=== PATIENT | male | born 1960 | race Caucasian/White ===

== ENCOUNTER 2025-08-12 03:42 | Emergency (ER) | payer MEDICARE, SELFPAY ==
[2025-08-12 03:52] VITALS: BP 118/48
[2025-08-12 03:53] VITALS: BP 118/48
[2025-08-12 04:03] VITALS: BMI 63.1
[2025-08-12 04:40] LABS: Hematocrit 42.3 % (39.0-52.0); Hemoglobin 12.9 g/dL (13.0-18.0); Mean Corp Hgb Conc. 30.5 g/dL (33.0-37.0); Mean Corpuscular Volume 80.7 fL (80.0-94.0); Nucleated Red Blood Cells % 0 % (-); Platelet Count 270 10^3/uL (130-400); Red Cell Dist. Width 17.3 % (11.5-14.5)
[2025-08-12 04:52] LABS: ALT (SGPT) 20 U/L (0-50); AST (SGOT) 20 U/L (17-59); Albumin 3.8 g/dl (3.5-5.0); Alkaline Phosphatase 123 U/L (38-126); Blood Urea Nitrogen 22 mg/dl (9-20); Calcium 8.7 mg/dl (8.4-10.2); Carbon Dioxide 32 mmol/L (22-30); Chloride 97 mmol/L (98-107); Estimated Creatinine Clearance > 125 ml/min; Glucose 120 mg/dl (70-99); Potassium 3.5 mmol/L (3.5-5.1); Sodium 140 mmol/L (135-145); Total Protein 6.8 g/dl (6.3-8.2); eGFR > 60.00
[2025-08-12 05:00] VITALS: BP 124/67
[2025-08-12 05:02] LABS: Troponin I < 0.012 ng/ml
--- NOTE | 2025-08-12 05:13 | ED.GENMED ---
History of Present Illness
<Laxmi Yo PA-C - Last Filed: 08/12/25 10:53>
General
Chief Complaint: Breathing Problem
Source: patient
Exam Limitations: none
Time Seen by Provider: 08/12/25 05:01
Nursing documentation reviewed up to this point in time: agreed with
History of Present Illness
History of Present Illness:
Note:
CHIEF COMPLAINT(S)
Shortness of breath and chest pain.
HISTORY OF PRESENT ILLNESS
The patient is a 64-year-old male with a history of atrial fibrillation on eliquis, COPD, GERD, who presents with shortness of breath and chest tightnessthat started around midnight. He reports waking up with these symptoms. The patient denies a
history of heart attacks and has not experienced recent cough or cold-like symptoms except for a persistent, mild presentation ('kind of always that way'). He notes sporadic episodes of wheezing and has previously been diagnosed with COPD (Chronic
Obstructive Pulmonary Disease), suggesting a potential flare-up. The patient experiences intermittent palpitations, though currently without severe distress. He does not recall taking any blood thinners for his condition and mentions not being on
medications that he can recall. Breathing treatments were discussed as helpful for relief during similar episodes .No edema in the lower extremities. Patient is from a long-term and is morbidly obese and non-ambulatory.
PAST MEDICAL AND SURIGICAL HISTORY
- Atrial Fibrillation
- Chronic Obstructive Pulmonary Disease (COPD)
PHYSICAL EXAM
General: Alert, no acute distress.
Skin: Warm, dry.
Head: Normocephalic, atraumatic.
Neck: Supple, trachea midline.
Eye Ears, nose, mouth and throat: Oral mucosa moist.
Cardiovascular: Normal peripheral perfusion, No edema.
Respiratory: Wheezing noted upon auscultation. No respiratory distress. Not hypoxic,
Gastrointestinal: Abdomen nondistended.
Back: Normal range of motion, Normal alignment.
Musculoskeletal: Normal range of motion, normal strength.
Neurological: Alert and oriented to person, place, time, and situation, No focal neurological deficit observed.
Psychiatric: Cooperative, appropriate mood & affect.
PROBLEM LIST
Acute Problems:
- Shortness of breath
- Chest pain
- Intermittent palpitations
- COPD flare-up
Chronic Problems:
- Atrial Fibrillation
- Chronic Obstructive Pulmonary Disease (COPD)
PLAN
- Consider administering breathing treatments to help alleviate symptoms.
- Follow up on any medication regimen to ensure the patient is adequately managing COPD flare-ups and atrial fibrillation.
DIFFERENTIAL DIAGNOSIS
The Differential Diagnosis includes, in no particular order and is not limited to:
1. Exacerbation of Chronic Obstructive Pulmonary Disease (COPD)
2. Atrial fibrillation-related palpitations
3. Angina pectoris
4. Myocardial infarction
5. Pulmonary embolism
6. Congestive heart failure
7. Pericarditis
8. Bronchitis
9. Lung infection (such as pneumonia)
10. Anxiety-related symptoms
Phy Exam
<Laxmi Yo PA-C - Last Filed: 08/12/25 10:53>
General Physical Exam
General Presentation: other (chronically ill appearing, no acute distress, appears older than stated age)
General Skin: warm and dry
General Habitus: obese and poor hygiene
General Mental: alert
General Hydration: appears well hydrated
ENT Exam
ENT Exam: EOMI, TM's normal and other (erythema and small amount of exudate in EAC)
Cardiovascular Exam
Cardiovascular Exam: regular rate/rhythm, no edema and no murmur
Pulmonary Exam
Pulmonary Exam: lungs clear, no respiratory distress, no crackles and no wheezing
Gastrointestinal Exam
Gastrointestinal Exam: normal bowel sounds, non tender and no pulsatile mass
Neurological Exam
Neurological Exam: alert, oriented x3 and CN II-XII intact
Scores
<Laxmi Yo PA-C - Last Filed: 08/12/25 10:53>
Heart Failure Risk
Heart Failure Risk Score: Not Applicable
Course
<Laxmi Yo PA-C - Last Filed: 08/12/25 10:53>
Orders/Labs/Results
Orders:
Orders
08/12/25 03:52
Electrocardiogram (*1) Urgent
Reason for Study: Shortness of Breath
EKG- Treatment ONCE
08/12/25 04:01
Complete Blood Count/With Diff Urgent
Comprehensive Metabolic Panel Urgent
NT-proBNP Urgent
Comment: ADD ON
Troponin I Urgent
08/12/25 05:16
CR Chest Portable - 1 View Urgent
Comment:
Reason For Exam: shortness of breath
Reason Study Needs to be Portable: Unable to Transport
08/12/25 05:17
Add On- LAB Urgent
Tests Added?: bnp
08/12/25 05:20
COVID-19 Antigen Urgent
Source: Nasal Swab
Influenza A+B Rapid Molecular Urgent
LUCIA Source: Nasal Swab
Specimen Description:
08/12/25 06:26
Ipratropium/Albuterol Sulfate [Duoneb] 3 ml INH R NOW STA
08/12/25 08:00
Ofloxacin [Ocuflox] See Dose Instructions BOTH EARS DAILY
Abnormal Lab Results
08/12/25
04:01
WBC 14.7 H 10^3/uL
(4.8-10.8)
Hgb 12.9 L g/dL
(13.0-18.0)
MCH 24.6 L pg
(27.0-31.0)
MCHC 30.5 L g/dL
(33.0-37.0)
RDW 17.3 H %
(11.5-14.5)
MPV 10.7 H fL
(7.4-10.4)
Abs Immat Gran (auto) 0.1 H 10^3/uL
(0-0.05)
Absolute Neuts (auto) 9.9 H 10^3/uL
(1.4-6.5)
Absolute Monos (auto) 1.2 H 10^3/uL
(0.1-0.6)
Immature Gran % 0.7 H %
(0-0.5)
Chloride 97 L mmol/L
(98-107)
Carbon Dioxide 32 H mmol/L
(22-30)
BUN 22 H mg/dl
(9-20)
Glucose 120 H mg/dl
(70-99)
08/12/25 04:01
08/12/25 04:01
Vital Signs
Initial and Last Documented VS:
Initial Vital Signs
Pulse Resp BP Pulse Ox
109 19 118/48 93
08/12/25 03:52 08/12/25 03:52 08/12/25 03:52 08/12/25 03:52
Last Documented Vital Signs
Pulse Resp BP Pulse Ox
103 27 118/75 94
08/12/25 09:49 08/12/25 06:15 08/12/25 06:00 08/12/25 09:49
<Amy Gonzalez, DO - Last Filed: 08/12/25 06:32>
Orders/Labs/Results
Orders:
Orders
08/12/25 03:52
Electrocardiogram (*1) Urgent
Reason for Study: Shortness of Breath
EKG- Treatment ONCE
08/12/25 04:01
Complete Blood Count/With Diff Urgent
Comprehensive Metabolic Panel Urgent
NT-proBNP Urgent
Comment: ADD ON
Troponin I Urgent
08/12/25 05:16
CR Chest Portable - 1 View Urgent
Comment:
Reason For Exam: shortness of breath
Reason Study Needs to be Portable: Unable to Transport
08/12/25 05:17
Add On- LAB Urgent
Tests Added?: bnp
08/12/25 05:20
COVID-19 Antigen Urgent
Source: Nasal Swab
Influenza A+B Rapid Molecular Urgent
LUCIA Source: Nasal Swab
Specimen Description:
08/12/25 06:26
Ipratropium/Albuterol Sulfate [Duoneb] 3 ml INH R NOW STA
08/12/25 08:00
Ofloxacin [Ocuflox] See Dose Instructions BOTH EARS DAILY
Abnormal Lab Results
08/12/25
04:01
WBC 14.7 H 10^3/uL
(4.8-10.8)
Hgb 12.9 L g/dL
(13.0-18.0)
MCH 24.6 L pg
(27.0-31.0)
MCHC 30.5 L g/dL
(33.0-37.0)
RDW 17.3 H %
(11.5-14.5)
MPV 10.7 H fL
(7.4-10.4)
Abs Immat Gran (auto) 0.1 H 10^3/uL
(0-0.05)
Absolute Neuts (auto) 9.9 H 10^3/uL
(1.4-6.5)
Absolute Monos (auto) 1.2 H 10^3/uL
(0.1-0.6)
Immature Gran % 0.7 H %
(0-0.5)
Chloride 97 L mmol/L
(98-107)
Carbon Dioxide 32 H mmol/L
(22-30)
BUN 22 H mg/dl
(9-20)
Glucose 120 H mg/dl
(70-99)
08/12/25 04:01
08/12/25 04:01
Vital Signs
Initial and Last Documented VS:
Initial Vital Signs
Pulse Resp BP Pulse Ox
109 19 118/48 93
08/12/25 03:52 08/12/25 03:52 08/12/25 03:52 08/12/25 03:52
Last Documented Vital Signs
Pulse Resp BP Pulse Ox
103 27 118/75 94
08/12/25 09:49 08/12/25 06:15 08/12/25 06:00 08/12/25 09:49
<Laxmi Yo PA-C - Last Filed: 08/12/25 10:53>
MDM/Problems Addressed
Differential Diagnosis Includes:
see hpi
MDM/Problems Addressed:
The patient is a 64-year-old male with a history of atrial fibrillation on eliquis, COPD, GERD, who presents with shortness of breath and chest tightness that started around midnight. He reports waking up with these symptoms.
He has associated cough, no sick contacts.
No fever.
CXR shows left sided infiltrate vs atelectasis, more consistent with atelectasis considering patients nonambulatory status and that he chronically lays on left side, also no fever
Labs thus far reveal mildly elevated white blood cell count of 14.7. Normal H&H.
Chemistries are unremarkable save for minimally elevated CO2 of 32. Concern for an element of chronic CO2 retention. Troponin is negative. BNP is normal at 300. COVID and flu testing are negative.
Suspect COPD exacerbation will initiate steroids
Pt stable for discharge
Pt also complains of ear discomfort
He does have b/l otitis externa on exam no mastoid tenderness
Ofloxacin drops given
Discussed establishing care with ENT
<Laxmi Yo PA-C - Last Filed: 08/12/25 10:53>
*Pulse Oximetry
SaO2: 94
Nasal Cannula flow liters per minute: 2
Oxygen Mode of Delivery: Room air
Patient hypoxic: no
*Critical Care Note
Total Time (30-74mins, 75-104mins- exclusive of procedures): Not Applicable
Data Reviewed
Review of Other/Old Records Reveals: Records (no prior ER physician documentation to review )
Source: patient and records
ED Attending Note
<Laxmi Yo PA-C - Last Filed: 08/12/25 10:53>
-
Portions of this chart may have been created with voice recognition software.� Occasional wrong word or��sound alike� substitutions may have occurred due to the inherent limitations of voice recognition software.
<mAy Gonzalez DO - Last Filed: 08/12/25 06:32>
ED Attending Note
Patient seen and examined by attending physician: Yes
I performed a history and physical exam of patient and discussed management with resident, I reviewed resident's note and agree with documented findings and plan of care.: Yes
ED Attending Note:
64-year-old gentleman with history of super morbid obesity, COPD, obstructive sleep apnea, A-fib chronically maintained on Eliquis, chronic otitis media, recently admitted to [facility] 2 days ago. He presents tonight with complaints
of shortness of breath, intermittent chest pain. He was concerned that his CPAP settings were 'off' Overall he was having difficulty sleeping, felt that the room that he was residing in was 'hot and stuffy' EMS found that patient's pulse ox was
in the high 90s on room air.
Feeling improved since arrival to the ED.
He is quite chatty, overall in no acute distress.
Patient noted to be morbidly obese, lying on his left side, position of comfort. He states he always lays on his left side. Chronically nonambulatory.
Heart is irregularly irregular at a rate of 90-100
Lungs: No acute respiratory distress. Mildly decreased breath sounds left base�the side that patient is lying on, otherwise clear to auscultation.
Concern for exacerbation of COPD, CHF, pneumonia. PE is unlikely, chronically maintained on Eliquis.
EKG shows A-fib with RVR at 105. No acute ST-T wave abnormalities. No old EKG to compare.
Labs thus far reveal mildly elevated white blood cell count of 14.7. Normal H&H.
Chemistries are unremarkable save for minimally elevated CO2 of 32. Concern for an element of chronic CO2 retention. Troponin is negative. BNP is normal at 300. COVID and flu testing are negative.
Awaiting chest x-ray.
Discharge Plan
Departure
Patient Disposition: Home (Routine Discharge)
Date of Disposition: 08/12/25
Time of Disposition: 07:32
Patient with high blood pressure during this ER visit?: Yes
Condition: Good
Discharge Problem:
COPD exacerbation
Instructions: COPD exacerbation (DC)
Prescriptions:
New
prednisone 20 mg tablet
40 mg PO DAILY 5 Days Qty: 10 0RF
Referrals:
Soo Manuel MD [Family Provider]
Citlali Murphy MD [Active, Otology] - Call in 1-3 days for appt
Activity Restrictions/Additional Instructions:
As discussed, you tested negative for COVID and flu.
Prednisone has been sent to your pharmacy. Please take 40 mg once daily for 5 days.
Please continue the ofloxacin drops. Please instill 10 drops in each ear for 5 days.
Please call the attached number to follow up with ENT.
PLEASE RETURN TO THE ER TO DEVELOP CHEST PAIN, SHORTNESS OF BREATH, NAUSEA, VOMITING FEVERS OR CHILLS, OR ANY OTHER SIGNS OR SYMPTOMS CONCERNING TO YOU.
Interventions
Interventions:
*Risk Screen - Suicide Last Done: 08/12/25 03:55
*General Assessment Last Done: 08/12/25 03:55
*Neglect/Abuse Screening Last Done: 08/12/25 03:55
*ED- Fall Risk Assessment Last Done: 08/12/25 03:55
*ED COVID-19 Vaccine History Last Done: 08/12/25 03:55
*ED Influenza Vaccine History Last Done: 08/12/25 03:55
ED- Cardiac Assessment Last Done: 08/12/25 04:14
ED- Pulmonary Assessment Last Done: 08/12/25 04:14
Discharge Date and Time
Print Language: FRISIAN
[2025-08-12 06:00] VITALS: BP 118/75
[2025-08-12 06:05] LABS: COVID-19 Antigen Negative (Negative)
[2025-08-12] MEDS: OCUFLOX 1 DROP BOTH EARS (07:11)
[2025-08-12] MEDS: DUONEB 3 ML INH (07:11)
== END 2025-08-12 12:00 | disposition home or self-care (01) ==
LOC: EMR 03:42
PROVIDERS: Physician Assistant; EMERGENCY PHYSICIAN Emergency Medicine; FAMILY PHYSICIAN Internal Medicine
DX: J44.1 Chronic obstructive pulmonary disease with (acute) exacerbation (principal); H60.63 Unspecified chronic otitis externa, bilateral; I48.91 Unspecified atrial fibrillation; E66.01 Morbid (severe) obesity due to excess calories; Z68.44 Body mass index [BMI] 60.0-69.9, adult; G47.33 Obstructive sleep apnea (adult) (pediatric); K21.9 Gastro-esophageal reflux disease without esophagitis; Z79.01 Long term (current) use of anticoagulants
CPT/HCPCS: 99284; 94640; 71045; 80053; 83880; 84484; 85025; 87502; 87811; 93005

== ENCOUNTER 2025-08-19 01:33 | Emergency (ER) | payer MEDICARE, SELFPAY ==
[2025-08-19] VITALS (10 sets, daily range): BP systolic 92–110; BP diastolic 47–92; BMI 62.8
[2025-08-19 02:16] LABS: Hematocrit 42.4 % (39.0-52.0); Hemoglobin 13.1 g/dL (13.0-18.0); Mean Corp Hgb Conc. 30.9 g/dL (33.0-37.0); Mean Corpuscular Volume 78.7 fL (80.0-94.0); Nucleated Red Blood Cells % 0 % (-); Platelet Count 277 10^3/uL (130-400); Red Cell Dist. Width 17.2 % (11.5-14.5)
[2025-08-19 03:05] LABS: ALT (SGPT) 17 U/L (0-50); AST (SGOT) 17 U/L (17-59); Albumin 3.7 g/dl (3.5-5.0); Alkaline Phosphatase 125 U/L (38-126); Blood Urea Nitrogen 24 mg/dl (9-20); Calcium 8.3 mg/dl (8.4-10.2); Carbon Dioxide 37 mmol/L (22-30); Chloride 93 mmol/L (98-107); Estimated Creatinine Clearance > 125 ml/min; Glucose 113 mg/dl (70-99); Potassium 3.4 mmol/L (3.5-5.1); Sodium 137 mmol/L (135-145); Total Protein 6.8 g/dl (6.3-8.2); eGFR > 60.00
[2025-08-19 03:16] LABS: Troponin I < 0.012 ng/ml
--- NOTE | 2025-08-19 04:03 | ED.GENMED ---
History of Present Illness
General
Chief Complaint: Headache
Source: patient
Exam Limitations: none
Time Seen by Provider: 08/19/25 01:43
Nursing documentation reviewed up to this point in time: agreed with
History of Present Illness
History of Present Illness:
Note:
CHIEF COMPLAINT(S)
Chest discomfort.
HISTORY OF PRESENT ILLNESS
The patient is a 65-year-old male with a pmh of super morbid obesity, COPD, sleep apnea, afib on eliquis, who presented with chest discomfort that awoke him from sleep. He is bed bound at baseline. He describes the pain as being located in the
middle of the chest and reports that it was persistent and he does not recall how long it was there. The patient notes the sensation is different from any kind he has experienced before. Despite experiencing chest discomfort, the patient has no
history of a heart attack and does not regularly follow with a [employer] administrator despite hs hx of atrial fibrillation. He reports that currently, upon arrival to the ER, the chest pain has resolved. He denies shortness of breath. He reports a lingering
cough. Additionally, he reports a headache but states it is similar to headaches he has had in the past. He is declining pain medication for the headache at this time. He does not know when it started. He has no associated visual changes, although
he does experience scratchy dry eyes. He reports that he is not sure if he follows with a primary care provider. He denies pain in his throat, jaw pain, pain in his extremities. He denies any known family history of heart problems and reports
regular use of acetaminophen (Tylenol) for pain. An electrocardiogram (EKG) has been conducted and appeared normal. The patient will undergo blood work including cardiac markers to assess for heart injury. He denies any redness or swelling in his
legs. Patient denies any injury to the chest wall.
PHYSICAL EXAM
General: Alert, no acute distress. Chronically ill appearing.
Skin: Warm, dry.
Head: Normocephalic, atraumatic.
Neck: Supple, trachea midline.
Ears, nose, mouth and throat: Oral mucosa moist.
Cardiovascular: HR irregularly irregular no murmurs.
Radial pulses 2+ bilaterally
Respiratory: Respirations are non-labored. No wheezes, rales, or rhonchi.
Back: Normal range of motion, Normal alignment.
Neurological: Alert and oriented to person, place, time, and situation, No focal neurological deficit observed.
Psychiatric: Cooperative, appropriate mood & affect.
PROBLEM LIST
Acute:
- Chest discomfort
- Headache
PLAN
- Conduct blood tests including cardiac markers to identify any cardiac injury.
- Monitor patients response to medication and further assess the numbness or tingling.
DIFFERENTIAL DIAGNOSIS
The Differential Diagnosis includes, in no particular order and is not limited to:
- Acute coronary syndrome
- Gastroesophageal reflux disease
- Costochondritis
- Musculoskeletal pain
- Pulmonary embolism
- Anxiety or panic attacks
- Pleurisy
- Cervical radiculopathy
- Myocardial infarction
- Atypical angina
CHART REVIEW
Reviewed ER physician documentation from last week
--recent steroid course would explain elevated WBC count today
CXR from 8 days ago shows left sided infiltrate vs atelectasis, more consistent with atelectasis considering patients nonambulatory status and that he chronically lays on left side, also no fever
LABS
Mildly hypokalemic, discussed repeat labs as an outpatient
CO 37 suspect chronic CO retention with hx of COPD
ECG
afib with no evidence of new ischemic changes x2 repeat ecg
MDM/DISPOSITION
The patient is a 65-year-old male with a pmh of super morbid obesity, COPD, sleep apnea, afib on eliquis, who presented with chest discomfort that awoke him from sleep. He is bed bound at baseline. He describes the pain as being located in the
middle of the chest and reports that it was persistent and he does not recall how long it was there. It resolved upon my evaluation.
He has no associated fevers, cough. On PE, he is morbidly obese bed bound at baseline, his lungs are clear for me and his heart rate is irregularly irregular. Troponin x2 undetectable ecg non-ischemic. Reviewed case with ED attending. Pain likely
musculoskeletal related to position vs reflux. Did consider PE however patient is chronically maintained on and his compliant with Eliquis and his symptoms resolved without intervention. Vitals stable in the ER. Discussed with him that he should be
evaluated by cardiology again. Pt expressed understanding and will speak to staff at [facility]. Patient stable for discharge.
Phy Exam
Physical Exam
Physical Exam:
see hpi
Course
Orders/Labs/Results
Orders:
Orders
08/19/25 01:35
Electrocardiogram (*1) Urgent
Reason for Study: Chest Pain
EKG- Treatment ONCE
08/19/25 01:51
CBC/With Diff [Complete Blood Count/With Diff] Urgent
Comprehensive Metabolic Panel Urgent
Troponin I Urgent
08/19/25 04:08
Troponin I Urgent
08/19/25 04:45
Electrocardiogram (*1) Urgent
Reason for Study: Chest Pain
08/19/25 05:08
EKG- Treatment ONCE
08/19/25 07:45
Acetaminophen [Tylenol] 1,000 mg PO NOW STA
Abnormal Lab Results
08/19/25
01:51
WBC 15.3 H 10^3/uL
(4.8-10.8)
MCV 78.7 L fL
(80.0-94.0)
MCH 24.3 L pg
(27.0-31.0)
MCHC 30.9 L g/dL
(33.0-37.0)
RDW 17.2 H %
(11.5-14.5)
MPV 10.5 H fL
(7.4-10.4)
Abs Immat Gran (auto) 0.1 H 10^3/uL
(0-0.05)
Absolute Neuts (auto) 9.9 H 10^3/uL
(1.4-6.5)
Absolute Lymphs (auto) 3.9 H 10^3/uL
(1.2-3.4)
Absolute Monos (auto) 1.1 H 10^3/uL
(0.1-0.6)
Potassium 3.4 L mmol/L
(3.5-5.1)
Chloride 93 L mmol/L
(98-107)
Carbon Dioxide 37 H mmol/L
(22-30)
BUN 24 H mg/dl
(9-20)
Glucose 113 H mg/dl
(70-99)
Calcium 8.3 L mg/dl
(8.4-10.2)
08/19/25 01:51
08/19/25 01:51
Vital Signs
Initial and Last Documented VS:
Initial Vital Signs
Temp Pulse Resp BP Pulse Ox
98.7 F 97 18 107/50 94
08/19/25 01:35 08/19/25 01:35 08/19/25 01:35 08/19/25 01:35 08/19/25 01:35
Last Documented Vital Signs
Temp Pulse Resp BP Pulse Ox
98.3 F 98 20 102/73 94
08/19/25 10:46 08/19/25 10:46 08/19/25 10:46 08/19/25 10:46 08/19/25 10:46
*Pulse Oximetry
SaO2: 95
Nasal Cannula flow liters per minute: 2
Oxygen Mode of Delivery: Room air
Patient hypoxic: no
*Critical Care Note
Total Time (30-74mins, 75-104mins- exclusive of procedures): Not Applicable
ED Attending Note
-
Portions of this chart may have been created with voice recognition software.� Occasional wrong word or��sound alike� substitutions may have occurred due to the inherent limitations of voice recognition software.
Discharge Plan
Departure
Patient Disposition: Home (Routine Discharge)
Date of Disposition: 08/19/25
Time of Disposition: 05:22
Patient with high blood pressure during this ER visit?: Yes
Condition: Good
Discharge Problem:
Chest pain
Instructions: Chest pain, BLOOD PRESSURE
Prescriptions:
No Action
prednisone 20 mg tablet
40 mg PO DAILY 5 Days Qty: 10 0RF
ofloxacin 0.3 % drops
10 drp otic (ear) DAILY 7 Days Qty: 5 0RF
Rx Instructions:
both ears
Referrals:
Soo Manuel MD [Family Provider]
Activity Restrictions/Additional Instructions:
Please follow-up with your [employer] administrator and your primary care provider. As discussed, your ECG remains unchanged and your troponins are undetectable. I recommend getting repeat CMP with primary care provider as your potassium was slightly low at
3.4. Please stay well-hydrated.
PLEASE RETURN TO ER SHOULD YOU DEVELOP ACUTE WORSENING OR SYMPTOMS, LOSS CONSCIOUSNESS, WEAKNESS ON ONE SIDE BY VERSUS OTHER, CONFUSION, JAW PAIN, OR ANY OTHER SIGNS OR SYMPTOMS WORRISOME TO YOU.
Interventions
Interventions:
*Risk Screen - Suicide Last Done: 08/19/25 01:41
*General Assessment Last Done: 08/19/25 01:41
*Neglect/Abuse Screening Last Done: 08/19/25 01:41
*ED- Fall Risk Assessment Last Done: 08/19/25 01:41
*ED COVID-19 Vaccine History Last Done: 08/19/25 01:41
*ED Influenza Vaccine History Last Done: 08/19/25 01:41
*Nursing Disposition Last Done: 08/19/25 10:46
ED- Neurological Assessment Last Done: 08/19/25 01:47
Discharge Date and Time
Discharge Date/Time: 08/19/25 10:45
Print Language: ETHIOPIAN
[2025-08-19 04:59] LABS: Troponin I < 0.012 ng/ml
[2025-08-19] MEDS: TYLENOL 1000 MG PO (07:52)
--- NOTE | 2025-08-19 10:44 | EDRN ---
Report given to Acute Care staff.
== END 2025-08-19 10:45 | disposition home or self-care (01) ==
LOC: EMR 01:33
PROVIDERS: Physician Assistant; EMERGENCY PHYSICIAN Emergency Medicine; FAMILY PHYSICIAN Internal Medicine
DX: R07.9 Chest pain, unspecified (principal); E87.6 Hypokalemia; R03.0 Elevated blood-pressure reading, without diagnosis of hypertension; I48.91 Unspecified atrial fibrillation; E66.01 Morbid (severe) obesity due to excess calories; Z68.44 Body mass index [BMI] 60.0-69.9, adult; J44.9 Chronic obstructive pulmonary disease, unspecified; G47.30 Sleep apnea, unspecified; Z79.01 Long term (current) use of anticoagulants; Z74.01 Bed confinement status
CPT/HCPCS: 99284; 80053; 84484; 85025; 93005

== ENCOUNTER 2025-08-29 03:27 | Inpatient (IN) | payer OTHER, SELFPAY ==
[2025-08-28 23:06] VITALS: BP 138/101
[2025-08-28 23:09] VITALS: BP 138/101
--- NOTE | 2025-08-28 23:18 | ED.GENMED ---
History of Present Illness
General
Chief Complaint: Breathing Problem
Time Seen by Provider: 08/28/25 23:07
History of Present Illness
History of Present Illness:
See MDM
Phy Exam
Physical Exam
Physical Exam:
See MDM
Scores
Heart Failure Risk
Heart Failure Risk Score: Not Applicable
Course
Orders/Labs/Results
Orders:
Orders
08/28/25 23:07
Electrocardiogram (*1) Urgent
Reason for Study: Shortness of Breath
Chest X-ray Portable [CR Chest Portable - 1 View] Urgent
Comment:
Reason For Exam: shortness of breath
Reason Study Needs to be Portable: Unable to Transport
08/28/25 23:08
EKG- Treatment ONCE
08/28/25 23:10
Diltiazem HCl [Cardizem] 10 mg IV NOW STA
08/28/25 23:16
Complete Blood Count/With Diff Urgent
Comprehensive Metabolic Panel Urgent
NT-proBNP Urgent
Troponin I Urgent
08/29/25 00:10
CR Chest Portable - 1 View Urgent
Comment:
Reason For Exam: sob
Reason Study Needs to be Portable: Unable to Transport
08/29/25 00:56
Potassium Chloride [KCl] 40 meq PO NOW STA
08/29/25 01:18
Aztreonam [Azactam] 1,000 mg IV NOW STA
Diltiazem 125 mg/125 ml Nss [Cardizem] 125 mg in 125 ml IV NOW
Initial dose in mg/hr, then titrate:: 5
Titrate to keep:: Heart rate 80-100 bpm
Titrate by mg/hr:: 5 mg/hr
Frequency of titrations (minutes):: 15
Maximum dose in mg/hr:: 15
Vancomycin [Vancocin] 2,000 mg 0.9% Sodium Chloride 500 ml [Nss] 500 ml IV NOW
08/29/25 01:45
Blood Culture Q30M
LUCIA Source: Blood/Venous
Specimen Description:
08/29/25 02:00
Lactic Acid Q4H
Comment: CANCEL 2nd LACTIC ACID IF 1st LACTIC ACID IS LESS THAN 2
08/29/25 02:15
Blood Culture Q30M
LUCIA Source: Blood/Venous
Specimen Description:
08/29/25 06:00
Lactic Acid Q4H
Comment: CANCEL 2nd LACTIC ACID IF 1st LACTIC ACID IS LESS THAN 2
Abnormal Lab Results
08/28/25
23:16
WBC 13.9 H 10^3/uL
(4.8-10.8)
Hgb 12.1 L g/dL
(13.0-18.0)
MCH 24.3 L pg
(27.0-31.0)
MCHC 29.8 L g/dL
(33.0-37.0)
RDW 17.7 H %
(11.5-14.5)
MPV 10.5 H fL
(7.4-10.4)
Abs Immat Gran (auto) 0.1 H 10^3/uL
(0-0.05)
Absolute Neuts (auto) 9.3 H 10^3/uL
(1.4-6.5)
Absolute Monos (auto) 1.1 H 10^3/uL
(0.1-0.6)
Immature Gran % 0.7 H %
(0-0.5)
Potassium 3.2 L mmol/L
(3.5-5.1)
Chloride 96 L mmol/L
(98-107)
Carbon Dioxide 35 H mmol/L
(22-30)
Glucose 152 H mg/dl
(70-99)
Calcium 7.8 L mg/dl
(8.4-10.2)
AST 15 L U/L
(17-59)
Alkaline Phosphatase 127 H U/L
(38-126)
Albumin 3.4 L g/dl
(3.5-5.0)
08/28/25 23:16
08/28/25 23:16
Vital Signs
Initial and Last Documented VS:
Initial Vital Signs
Pulse Ox
95
08/28/25 23:05
Last Documented Vital Signs
Temp Pulse Resp BP Pulse Ox
98 F 104 19 118/60 92
08/28/25 23:09 08/29/25 01:00 08/29/25 01:00 08/29/25 01:00 08/29/25 01:00
MDM/Problems Addressed
Differential Diagnosis Includes:
Note:
CHIEF COMPLAINT(S)
Shortness of breath.
HISTORY OF PRESENT ILLNESS
The patient is a 65-year-old male with a documented history of atrial fibrillation, presenting with shortness of breath. The onset was sudden, occurring earlier tonight, which prompted the patient to call 911 for assistance. The patients past
medical history also includes a reported history of chronic obstructive pulmonary disease (COPD), though this is not definitively confirmed by the patient. The patient is uncertain about his current medication regimen, including any blood thinners.
CHRONIC MEDICAL CONDITIONS SIGNIFICANTLY AFFECTING CARE
Chronic conditions affecting care include atrial fibrillation and possibly chronic obstructive pulmonary disease (COPD).
EXTERNAL RECORDS REVIEWED
The patient mentions being primarily seen at [facility], but no specific records were available for review during this encounter.
PHYSICAL EXAM
General: Alert, no acute distress. Large BMI
Skin: Warm, dry.
Head: Normocephalic, atraumatic
Neck: Appears supple, trachea midline.
Eyes, Ears, Nose, Mouth, and Throat: Moist mucous membranes
Cardiovascular: No signs of cyanosis. Tachycardic and irregular
Respiratory: Respirations are non-labored. Poor air exchange
Abdomen: Non-distended
Musculoskeletal: Bilateral leg edema
Neurological: No focal neurological deficit observed.
Psychiatric: Cooperative, appropriate mood and affect.
MEDICAL DECISION MAKING
- Number and Complexity of Problems Addressed: Chronic conditions affecting care include atrial fibrillation and possibly chronic obstructive pulmonary disease (COPD).
- Data:
- Category 1: The patient mentioned [facility] as the hospital of choice; electronic records were not accessible.
- Category 2: None indicated.
- Category 3: None indicated.
- Risk: The patients presentation of shortness of breath and a history of atrial fibrillation may warrant consideration for admission; however, additional diagnostic and clinical evaluations are necessary.
DIFFERENTIAL DIAGNOSIS
The Differential Diagnosis includes, in no particular order and is not limited to:
- Exacerbation of chronic obstructive pulmonary disease (COPD)
- Pulmonary embolism
- Congestive heart failure
- Pneumonia
- Anxiety or panic attack
- Acute coronary syndrome
- Atrial fibrillation with rapid ventricular response
- Bronchitis
- Pneumothorax
- Interstitial lung disease
DIAGNOSIS
- Atrial Fibrillation (I48.91)
- Chronic Obstructive Pulmonary Disease (J44.9) (as suggested by history; requires confirmation)
EKG
My independent EKG interpretation is:
- Time of EKG not specified.
- Rhythm: Atrial Fibrillation.
- Heart Rate: Rapid ventricular response at 106 beats per minute.
- Barstow: Right Barstow Deviation.
- ST Segment: No ST elevation noted.
CARE-UPDATE
08/29/25 - 01:22
Repeat chest X-ray showed significant opacity in the left lung, raising suspicion for pneumonia. Considering the patients shortness of breath and elevated white blood cell count, antibiotics have been initiated to address a potential infectious
process.
Disposition:
SUMMARY OF ENCOUNTER
The patient is a 65-year-old male with a known history of atrial fibrillation, who presented to the emergency department with shortness of breath. Upon evaluation, he was found to be in atrial fibrillation with rapid ventricular response (AFib with
RVR). An initial dose of diltiazem bolus was administered, which provided partial relief, but the patient remained in AFib with RVR, necessitating a continuous diltiazem drip. A chest x-ray was performed, which was concerning for left lower lobe
pneumonia. Given these findings and ongoing symptoms, antibiotics were initiated.
DISPOSITION
Admit.
ASSESSMENT
The patient presented with shortness of breath and was found to be in atrial fibrillation with rapid ventricular response, along with suspicion of left lower lobe pneumonia as seen on chest x-ray.
EMERGENCY TREATMENTS ADMINISTERED
Diltiazem bolus, followed by a diltiazem drip.
INDEPENDENT REVIEW OF LABS AND INTERPRETATION OF TESTS
- My independent interpretation of the EKG indicates atrial fibrillation with rapid ventricular response at 106 beats per minute.
- My independent interpretation of the chest x-ray shows significant opacity in the left lower lobe, raising suspicion for pneumonia.
MEDICATION RECONCILIATION
- Diltiazem administered as a bolus and diltiazem drip initiated.
- Antibiotics initiated for suspected pneumonia.
MEDICAL DECISION MAKING
- Chronic conditions affecting care include atrial fibrillation and suspected chronic obstructive pulmonary disease (COPD). Differential diagnosis considerations include exacerbation of COPD, pulmonary embolism, congestive heart failure, pneumonia,
anxiety or panic attack, acute coronary syndrome, atrial fibrillation with rapid ventricular response, bronchitis, pneumothorax, and interstitial lung disease.
- Data:
- Category 1: Chest x-ray revealing left lower lobe opacity.
- Category 2: My independent interpretation of the EKG and chest x-ray.
- Risk: The decision to admit due to the complexity of atrial fibrillation with rapid ventricular response and suspected pneumonia.
DIAGNOSIS
- Atrial Fibrillation with Rapid Ventricular Response (I48.91)
- Suspected Pneumonia (J18.9) based on imaging findings.
*Pulse Oximetry
SaO2: 95
Nasal Cannula flow liters per minute: 6
Patient hypoxic: no
*Critical Care Note
Total Time (30-74mins, 75-104mins- exclusive of procedures): 33 min
comment:
The high probability of a clinically significant, sudden or life threatening deterioration of the cardiopulmonary system(s) required my full and direct attention, intervention and personal management. The aggregate critical care time was 33 minutes.
This time is in addition to time spent performing reported procedures but includes the following:
[x] Data Review and interpretation
[x] Patient assessment and monitoring of vital signs
[x] Documentation
[x] Medication orders and management
ED Attending Note
-
Portions of this chart may have been created with voice recognition software.� Occasional wrong word or��sound alike� substitutions may have occurred due to the inherent limitations of voice recognition software.
Discharge Plan
Departure
Patient Disposition: Admit
Date of Disposition: 08/29/25
Time of Disposition: 01:20
Admit to: Med/Surg
Presentation/result/management discussed w/ accepting MD/DO: Hospitalist
Discharge Problem:
PNA (pneumonia), Atrial fibrillation with RVR, Hypokalemia
Prescriptions:
No Action
prednisone 20 mg tablet
40 mg PO DAILY 5 Days Qty: 10 0RF
ofloxacin 0.3 % drops
10 drp otic (ear) DAILY 7 Days Qty: 5 0RF
Rx Instructions:
both ears
Referrals:
Soo Manuel MD [Family Provider]
Interventions
Interventions:
*Risk Screen - Suicide Last Done: 08/29/25 00:21
*General Assessment Last Done: 08/29/25 00:17
*Neglect/Abuse Screening Last Done: 08/29/25 00:20
*ED- Fall Risk Assessment Last Done: 08/29/25 00:17
*ED COVID-19 Vaccine History Last Done: 08/29/25 00:10
*ED Influenza Vaccine History Last Done: 08/29/25 00:10
ED- Cardiac Assessment Last Done: 08/28/25 23:20
ED- Pulmonary Assessment Last Done: 08/28/25 23:20
Discharge Date and Time
Print Language: GREEK
[2025-08-28 23:23] LABS: Hematocrit 40.6 % (39.0-52.0); Hemoglobin 12.1 g/dL (13.0-18.0); Mean Corp Hgb Conc. 29.8 g/dL (33.0-37.0); Mean Corpuscular Volume 81.7 fL (80.0-94.0); Nucleated Red Blood Cells % 0 % (-); Platelet Count 254 10^3/uL (130-400); Red Cell Dist. Width 17.7 % (11.5-14.5)
[2025-08-28 23:26] VITALS: BP 111/84
[2025-08-28] MEDS: CARDIZEM 10 MG IV (23:26)
[2025-08-28 23:45] LABS: ALT (SGPT) 16 U/L (0-50); AST (SGOT) 15 U/L (17-59); Albumin 3.4 g/dl (3.5-5.0); Alkaline Phosphatase 127 U/L (38-126); Blood Urea Nitrogen 18 mg/dl (9-20); Calcium 7.8 mg/dl (8.4-10.2); Carbon Dioxide 35 mmol/L (22-30); Chloride 96 mmol/L (98-107); Estimated Creatinine Clearance > 125 ml/min; Glucose 152 mg/dl (70-99); Potassium 3.2 mmol/L (3.5-5.1); Sodium 135 mmol/L (135-145); Total Protein 6.3 g/dl (6.3-8.2); eGFR > 60.00
[2025-08-28 23:47] LABS: Troponin I < 0.012 ng/ml
[2025-08-29] VITALS (20 sets, daily range): BP systolic 103–139; BP diastolic 54–86; PULSE 2
[2025-08-29] MEDS: KCL 40 MEQ PO ×3 (01:49→19:57)
[2025-08-29] MEDS: AZACTAM 1000 MG IV (02:38)
[2025-08-29] MEDS: VANCOCIN 540 MG IV (02:45)
--- NOTE | 2025-08-29 03:12 | HPS.HSE ---
Family Physician
-
Family Physician: Soo Manuel
Chief Complaint
-
SOB
History of Present Illness
Patient is a 65y M with PMH significant for morbid obesity, CHF and AYLIN who presents to ED complaining of SOB. Patient states that he has felt progressively more SOB for the past week or so. He has had some occasional, non-productive cough. He
has complained of sinus congestion and has been taking Sudafed at the [place]. This evening his dyspnea was more severe and he was sent to the ED for further evaluation.
Patient notes that he had a long hospitalization at [facility] about 6 weeks ago for surgery for lymphedematous pannus. He was discharged to [facility] here in following that hospital stay and notes that he has been there for about one week. He
is from the [place] area.
Patient states that his pannus surgical site has healed well. No residual issues there. No complaints of N/V/D. He is chronically incontinent of urine.
He has A-Fib and HFpEF for which he followed by Cardiology at [facility].
Medical History
Past Medical History
Past Medical History: Reports Other
Additional Past Medical History:
Morbid Obesity
Paroxysmal Atrial Fibrillation
HFpEF
Hypertension
AYLIN on CPAP
GERD
Asthma / COPD
Iron Deficiency Anemia
DDD
Chronic Sinusitis
Past Surgical History: Reports Other
Additional Past Surgical History:
Lymphedematous Panniculectomy
Hernia Surgeries
Social History
Tobacco: Former Smoker (Quit smoking about 15 years ago.)
Alcohol: None
Drug: None
Family History
Family History: Not pertinent
Allergies / Home Medications
Allergies reflects when Allergies were last updated in [facility].
Home Medications with original date entered in [facility]
Allergy/Medication List:
Allergies
Allergy/AdvReac Type Severity Reaction Status Date / Time
Penicillins Allergy Unknown Verified 08/28/25 23:15
Home Medications
acetaminophen 325 mg tablet 1,300 mg PO Q12H 08/29/25
albuterol sulfate 2.5 mg/3 mL (0.083 %) solution for nebulization 2.5 mg inhalation [id number] PRN SOB 08/29/25
albuterol sulfate 90 mcg/actuation aerosol inhaler 2 puff inhalation Q4HPRN PRN SOB 08/29/25
apixaban 5 mg tablet (Eliquis) 5 mg PO HS 08/29/25
aspirin 81 mg chewable tablet 81 mg PO DAILY 08/29/25
atorvastatin 20 mg tablet 20 mg PO DAILY 08/29/25
cetirizine 10 mg tablet 10 mg PO DAILY 08/29/25
cyanocobalamin (vitamin B-12) 1,000 mcg tablet 1,000 mcg PO DAILY 08/29/25
ergocalciferol (vitamin D2) 1,250 mcg (50,000 unit) capsule 1,250 mcg PO QMONTH 08/29/25
ferrous sulfate 325 mg (65 mg iron) tablet 325 mg PO DAILY 08/29/25
fluticasone furoate 100 mcg-vilanterol 25 mcg/dose inhalation powder 1 inh inhalation DAILY 08/29/25
fluticasone propionate 50 mcg/actuation nasal spray,suspension 1 spray intranasal DAILY 08/29/25
metoprolol succinate 50 mg tablet,extended release 24 hr 50 mg PO DAILY 08/29/25
montelukast 10 mg tablet 10 mg PO HS 08/29/25
omeprazole 20 mg tablet,delayed release 20 mg PO DAILY 08/29/25
potassium chloride 20 mEq tablet,extended release 40 meq PO BID 08/29/25
pseudoephedrine HCl 30 mg tablet 30 mg PO Q4HPRN PRN sinus congestion 08/29/25
torsemide 20 mg tablet 40 mg PO DAILY 08/29/25
Review of Systems
-
History Source: Patient
A 12 point ROS was completed and negative except as noted: Yes
Constitutional: Reports Fatigue; Denies Fever or Chills
EENT: Reports Runny Nose and Other (sinus congestion); Denies Sore Throat
Respiratory: Reports Cough and Trouble Breathing; Denies Hemoptysis
Cardiac: Denies Chest Pain or Palpitations
Abdomen/GI: Denies Abdominal Pain, Nausea, Vomiting or Diarrhea
: Reports Incontinence (chronic); Denies Dysuria or Flank Pain
Musculoskeletal: Reports Joint Pain (chronic)
Skin: Reports Rash
Neurological: Denies Dizzy or Headache
Psych: Denies Depression or Anxiety
Physical Exam
Vital Signs
Vital Signs
Temp Pulse Resp BP Pulse Ox
98 F 104 19 118/60 92
08/28/25 23:09 08/29/25 01:00 08/29/25 01:00 08/29/25 01:00 08/29/25 01:00
Physical Exam
General: Other (Morbidly obese 65y M in no acute distress.)
HEENT: Other (Thick neck. No appreciable JVD. MMM.)
Respiratory: Other (Decreased BS bilaterally. No W/R/R.)
Cardiac: S1/S2 and Irregular Rhythm; No Murmur
GI: Other (Obese, not tender. Surgical scar low abdomen / pelvic area well-healed.)
Musculoskeletal: No Clubbing, No Cyanosis and Other (Chronic lymphedema x 4 extremities.)
Skin: Other (Scattered eczema / psoriasis at eblows, wrists, perioral area / brows, etc.)
Neuro: AO x 3
Laboratory Results
-
08/28/25 23:16
08/28/25 23:16
Laboratory Results
Lactic Acid 2.3 mmol/L (0.7-2.0) H 08/29/25 01:56
Total Bilirubin 0.4 mg/dl (0.2-1.3) 08/28/25 23:16
AST 15 U/L (17-59) L 08/28/25 23:16
ALT 16 U/L (0-50) 08/28/25 23:16
Alkaline Phosphatase 127 U/L (38-126) H 08/28/25 23:16
Troponin I < 0.012 ng/ml 08/28/25 23:16
Impression/Plan
-
A/P: Patient is a 65y M with PMH significant for morbid obesity, AYLIN on CPAP and A-Fib who presents to ED from local SNF for evaluation of SOB.
Acute Hypoxemic Respiratory Insufficiency
LLL Pneumonia
- Admit for further evaluation and treatment.
- Mild cough, abnormal CXR (? to what extent this represents cardiomegaly + rotation?), leukocytosis.
- Cover with empiric abx for now.
- Follow for fever. Monitor for any new / worsening symptoms.
- Supportive care including nebs, mucolytics, etc.
- Follow-up culture data.
- Check COVID / Flu status.
Chronic HFpEF
- No clear evidence of volume overload - though difficult to asses given body habitus, etc.
- BNP similarly not reliable given degree of obesity.
- Continue current torsemide dosing for now without changes.
- Follow I/Os (as able given chronic incontinence) and daily weights.
- Update Echo.
- Cardiology evaluation for additional recommendations.
- Send to [facility] for records.
Paroxysmal Atrial Fibrillation
- In A-Fib with rapid rates this evening. ? source for his subjective dyspnea.
- IV Cardizem to continue and titrate as needed.
- Continue Eliquis - increase to BID. Not clear why this is daily dosing.
- Cardiology evaluation as noted above.
- Would avoid further Sudafed doses.
Hypokalemia
- Continue potassium supplementation and adjust dosing as needed.
- Check Mg.
COPD without Acute Exacerbation
- Continue current inhaled medications / PRN nebs.
- No wheezing appreciated on exam.
AYLIN on CPAP
- Patient uses AutoPAP at home / SNF - can use home device if it can be delivered here.
- Nightly CPAP for now at 10cm H2O and titrate for comfort.
s/p Panniculectomy
- Stable. Surgical site appears well-healed. No current issues.
Morbid Obesity due to excess calories
- BMI > 60.
- Affects all aspects of care.
DVT Prophylaxis: On Eliquis. Increased to BID. Check LE dopplers given recent immobility and subtherapeutic dosing regimen of Eliquis prior to admission.
Code Status: Full
[2025-08-29] MEDS: STERILE WATER FOR INJECTION 10 ML IV (06:02)
[2025-08-29] MEDS: ROCEPHIN 1000 MG IV (06:02)
--- NOTE | 2025-08-29 06:43 | PTCARENOTE ---
Pt admitted from ED, transported in current bed. Pt requiring bariatric bed; full charge bookkeeper and solar installation crew supervisor are aware and ordering specialty bed. Pt requiring 5+ staff to assist with turns. Pt unable to turn and refusing further skin assessments.
lye peel operator aware. Pt AAOx3. Pt afib on telemetry box #17.
[2025-08-29 07:04] LABS: ALT (SGPT) 16 U/L (0-50); AST (SGOT) 17 U/L (17-59); Albumin 3.4 g/dl (3.5-5.0); Alkaline Phosphatase 134 U/L (38-126); Blood Urea Nitrogen 18 mg/dl (9-20); Calcium 7.7 mg/dl (8.4-10.2); Carbon Dioxide 30 mmol/L (22-30); Chloride 100 mmol/L (98-107); Estimated Creatinine Clearance > 125 ml/min; Glucose 113 mg/dl (70-99); HDL Cholesterol 37 mg/dl; LDL Cholesterol, Calculated 32 mg/dl; Potassium 3.6 mmol/L (3.5-5.1); Sodium 139 mmol/L (135-145); Total Protein 6.3 g/dl (6.3-8.2); Very Low Density Lipoprotein 61 mg/dl (0-30); eGFR > 60.00
[2025-08-29 07:12] LABS: Magnesium 1.4 mg/dl (1.6-2.3)
[2025-08-29] MEDS: SYMBICORT 80/4.5 MCG INHALER 2 PUFF INH ×2 (07:13→18:03)
[2025-08-29 07:15] LABS: Troponin I 0.014 ng/ml
[2025-08-29] MEDS: PROTONIX 40 MG PO (09:09)
[2025-08-29] MEDS: TRIAMCINOLONE ACETONIDE 0.1% 1 APPLIC TOPICAL (09:09)
[2025-08-29] MEDS: MUCINEX 1200 MG PO ×2 (09:09→19:56)
[2025-08-29] MEDS: VIBRAMYCIN 100 MG PO ×2 (09:09→19:57)
[2025-08-29] MEDS: DEMADEX 40 MG PO (09:09)
[2025-08-29] MEDS: TOPROL XL 50 MG PO ×2 (09:10→19:56)
[2025-08-29] MEDS: LOW STRENGTH ASPIRIN 81 MG PO (09:10)
[2025-08-29] MEDS: ELIQUIS 5 MG PO ×2 (09:11→19:56)
[2025-08-29] MEDS: LIPITOR 20 MG PO (09:11)
[2025-08-29] MEDS: TYLENOL 650 MG PO ×3 (09:25→22:31)
--- NOTE | 2025-08-29 10:54 | PTCARENOTE ---
notified provider of a-fib w/RVR @10:29. Pt will be transferred to IMU for start of cardizem drip
[2025-08-29 10:58] LABS: Hematocrit 41.3 % (39.0-52.0); Hemoglobin 12.3 g/dL (13.0-18.0); Mean Corp Hgb Conc. 29.8 g/dL (33.0-37.0); Mean Corpuscular Volume 82.4 fL (80.0-94.0); Platelet Count 232 10^3/uL (130-400); Red Cell Dist. Width 17.9 % (11.5-14.5)
--- NOTE | 2025-08-29 11:06 | W.PN.HOSP.TC ---
Today's Communication/Plan
-
Transfer to IMU. Start diltiazem gtt and titrate as needed.
Assessment / Plan
Assessment / Plan
Patient is a 65y M with PMH significant for morbid obesity, AYLIN on CPAP and A-Fib who presents to ED from local SNF for evaluation of SOB.
Diagnosis present prior to admit:
Morbid Obesity (bmi 64)
Paroxysmal Atrial Fibrillation
HFpEF
Hypertension
AYLIN on CPAP
GERD
Asthma / COPD
Iron Deficiency Anemia
DDD
Chronic Sinusitis
1. Acute Hypoxemic Respiratory Insufficiency complicated by LLL Pneumonia
- Mild cough, abnormal CXR (? to what extent this represents cardiomegaly + rotation?), leukocytosis.
- Cover with empiric abx for now.
- Follow for fever. Monitor for any new / worsening symptoms.
- Supportive care including nebs, mucolytics, etc.
- Follow-up culture data.
- Check COVID / Flu status.
Pulmonary consult
2. Chronic HFpEF
- No clear evidence of volume overload - though difficult to asses given body habitus, etc.
- BNP similarly not reliable given degree of obesity.
- Continue current torsemide dosing for now without changes.
- Follow I/Os (as able given chronic incontinence) and daily weights.
- Update Echo.
- Cardiology consult for additional recommendations.
- [facility].
3. Paroxysmal Atrial Fibrillation
- In A-Fib with rapid rates this evening. this may also be a source for his subjective dyspnea.
- IV Cardizem to continue and titrate as needed - he needs to be on IMU for this
transferred to IMU
- Continue Eliquis - increase to BID. Not clear why this is daily dosing.
- Cardiology evaluation as noted above.
- Would avoid further Sudafed doses.
4. Hypokalemia
- Continue potassium supplementation and adjust dosing as needed.
- Check Mg.
5. COPD without Acute Exacerbation
- Continue current inhaled medications / PRN nebs.
- No wheezing appreciated on exam.
6. AYLIN on CPAP
- Patient uses AutoPAP at home / SNF - can use home device if it can be delivered here.
- Nightly CPAP for now at 10cm H2O and titrate for comfort.
7. s/p Panniculectomy
- Stable. Surgical site appears well-healed. No current issues.
8. Morbid Obesity due to excess calories
- BMI > 60.
- Affects all aspects of care.
DVT Prophylaxis: On Eliquis. Increased to BID.
Check LE dopplers given recent immobility and subtherapeutic dosing regimen of Eliquis prior to admission.
Code Status: Full
Anticipated Discharge: > 48 hours
Subjective/Interval History
-
Date of Service: August 29, 2025
+Rapid afib while on floor
Objective Data
-
Labs:
Laboratory Results
08/28/25 08/29/25 08/29/25
23:16 06:23 10:36
WBC 13.9 H Cancelled 12.0 H
Hgb 12.1 L Cancelled 12.3 L
Hct 40.6 Cancelled 41.3
Plt Count 254 Cancelled 232
Sodium 135 139
Potassium 3.2 L 3.6
Chloride 96 L 100
Carbon Dioxide 35 H 30
BUN 18 18
Creatinine 0.7 0.6 L
Glucose 152 H 113 H
Calcium 7.8 L 7.7 L
Total Bilirubin 0.4 0.4
AST 15 L 17
ALT 16 16
Alkaline Phosphatase 127 H 134 H
Vital Signs:
Vital Signs
Temp Pulse Resp BP Pulse Ox
98.8 F 115 21 139/77 98
08/29/25 07:34 08/29/25 09:09 11/16/25 07:34 08/29/25 09:09 08/29/25 07:34
Review of Systems
-
Unable to obtain full review of systems at this time due to: Acuity
History Source: Patient
Physical Exam
-
General: Well Developed, Well Nourished, No Apparent Distress, Comfortable, Appears Chronically Ill and Morbidly Obese
HEENT: Moist Mucous Membranes and Oxygen
Respiratory: Decreased Breath Sounds
Cardiac: S1/S2, Irregular Rhythm and Tachycardic
GI: Soft
Neuro: Awake, Alert and Oriented
Psych: Calm
Data Reviewed
-
Labs: Labs Reviewed by me
[2025-08-29 11:30] LABS: Troponin I 0.013 ng/ml
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
[2025-08-29] MEDS: CARDIZEM 125 IV (11:54)
--- NOTE | 2025-08-29 12:45 | PTCARENOTE ---
Received into room 3348 at 12:35 with diltiazem infusing. Pt AOx3, afib on telemetry, HR 100-130s. Per nursing subwarehouse supervisor and staff assistant, no bariatric bed available until Saturday. Patient refusing to turn in bed despite encouragement. Updated
pt on plan of care.
[2025-08-29 12:51] LABS: Glycohemoglobin (HgbA1c) 6.1 % (4.0-5.9)
--- NOTE | 2025-08-29 17:18 | CON.PUL ---
Consultation
Consultation Request
Date/Time Consultation Requested: 08/29/2025
Date/Time Consultation Performed: 08/29/2025
Requesting Provider: Dr. Marcelo
Performing Provider: Dr. Tate
Reason for Consultation: SOB/Pneumonia;COPD exacerbation
Medical History
-
Chief Complaint: SOB
History of Present Illness:
65-year-old male morbidly obese bed-bound male former tobacco smoker with a past medical history of chronic HFpEF, COPD, asthma, paroxysmal A-fib on Eliquis, AYLIN on CPAP, GERD, KELLY, DDD, and chronic sinusitis who presents with shortness of breath.
He says that his symptoms started 1 night prior to arrival. He denies any phlegm production or sick contacts. He has been using Sudafed and Afrin to help decongest his nasal cavity + chest but it has not been helping. He has been compliant with
the CPAP at [facility]. In the ER he was afebrile with pulse rate 117, respiratory rate 18, BP 138/101 and was saturating 95% on 6 L/min nasal cannula. Labs are pertinent for leukocytosis to 13.9, Hb 12.1, absolute eosinophil count: 300, potassium
level 3.2, proBNP 782 and COVID-19 antigen negative. Blood cultures collected, and flu swab was found to be negative. Initial CXR showed a large patchy and confluent increased attenuation throughout the left hemothorax. Differential includes
pneumonia, pleural fluid and atelectasis. In the ER he was given aztreonam, vancomycin, 10 mg Cardizem and potassium chloride, and he was admitted to telemetry. Patient's heart rate did become more controlled however on the morning of 08/29,
patient's heart rate increased again into the 120�130s. He was started on Toprol-XL, also given torsemide, and then required Cardizem drip. Patient then upgraded to IMU, and pulmonary service consulted for additional management/recommendations.
When I saw the patient, he was resting in bed, laying on his left side (which is the side that he favors to lay on), on 3 L/min nasal cannula saying that he feels better. He is asking for something to clear out his right ear. He currently denies
chest pain, ORANTES, nausea, fevers or chills.
Recently in the ER here at on 08/19/2025 due to chest pain that was substernal and awoken him from sleep. EKG appeared normal. Troponin was negative x 2. He was discharged back to [facility] in stable condition.
Prior to that, he was here at ER on 08/12/2025 due to shortness of breath and chest tightness, with CXR showing left-sided infiltrate versus atelectasis with atelectasis more consistent consistent patient's considering patient is nonambulatory
status and he was afebrile. Also complaining of ear discomfort and found to have bilateral otitis externa on exam with no mastoid tenderness. Ofloxacin drops were given. He was discharged with 5 days of prednisone 40 mg daily to treat a COPD
exacerbation.
PMHx: morbid obesity, chronic HFpEF, paroxysmal A-fib on Eliquis, history of COPD on Breo, AYLIN on CPAP, GERD, history of asthma, iron deficiency anemia, DDD, chronic sinusitis, former tobacco smoker
PSHx: lymphedematous panniculectomy, hernia surgeries
Past Medical History
Past Medical History: Other (Above as per HPI)
Past Surgical History: Other (Above as per HPI)
Social History
Tobacco: Former Smoker (Quit 15 years ago)
Alcohol: None
Drug: None
Living: [facility]
Family History
Family History: Reviewed & Not Pertinent
Allergies / Home Medications
Allergies
Allergy/AdvReac Type Severity Reaction Status Date / Time
Penicillins Allergy Unknown Verified 08/28/25 23:15
Home Medications
�Medication �Instructions �Recorded �Confirmed �Last Taken �Type
acetaminophen 325 mg tablet 1,300 mg PO Q12H Pain 08/29/25 08/29/25 Unknown History
albuterol sulfate 2.5 mg/3 mL 2.5 mg inhalation [id number] PRN SOB 08/29/25 08/29/25 Unknown History
(0.083 %) solution for nebulization
albuterol sulfate 90 mcg/actuation 2 puff inhalation Q4HPRN PRN SOB 08/29/25 08/29/25 Unknown History
aerosol inhaler
apixaban 5 mg tablet (Eliquis) 5 mg PO HS Blood Clot Prevention/Tx 08/29/25 08/29/25 Unknown History
aspirin 81 mg chewable tablet 81 mg PO DAILY Blood Clot 08/29/25 08/29/25 Unknown History
Prevention/Tx
atorvastatin 20 mg tablet 20 mg PO DAILY High Cholesterol 08/29/25 08/29/25 Unknown History
cetirizine 10 mg tablet 10 mg PO DAILY Allergies 08/29/25 08/29/25 Unknown History
cyanocobalamin (vitamin B-12) 1,000 mcg PO DAILY Supplement 08/29/25 08/29/25 Unknown History
1,000 mcg tablet
ergocalciferol (vitamin D2) 1,250 1,250 mcg PO QMONTH Supplement 08/29/25 08/29/25 Unknown History
mcg (50,000 unit) capsule
ferrous sulfate 325 mg (65 mg 325 mg PO DAILY Supplement 08/29/25 08/29/25 Unknown History
iron) tablet
fluticasone furoate 100 1 inh inhalation DAILY 08/29/25 08/29/25 Unknown History
mcg-vilanterol 25 mcg/dose Lung/Breathing Issues
inhalation powder
fluticasone propionate 50 1 spray intranasal DAILY Allergies 08/29/25 08/29/25 Unknown History
mcg/actuation nasal
spray,suspension
metoprolol succinate 50 mg 50 mg PO DAILY Heart 08/29/25 08/29/25 Unknown History
tablet,extended release 24 hr Disease/Condition
montelukast 10 mg tablet 10 mg PO HS Allergies 08/29/25 08/29/25 Unknown History
omeprazole 20 mg tablet,delayed 20 mg PO DAILY Gastrointestinal 08/29/25 08/29/25 Unknown History
release Issue
potassium chloride 20 mEq 40 meq PO BID Electrolyte Repletion 08/29/25 08/29/25 Unknown History
tablet,extended release
pseudoephedrine HCl 30 mg tablet 30 mg PO Q4HPRN PRN sinus 08/29/25 08/29/25 Unknown History
congestion
torsemide 20 mg tablet 40 mg PO DAILY Fluid 08/29/25 08/29/25 Unknown History
Retention/Swelling
Review of Systems
-
History Source: Patient
All other systems: Negative unless noted
Vitals / Labs / Diagnostic Testing
Vital Signs
Temp Pulse Resp BP Pulse Ox
98.2 F 91 15 108/58 94
08/29/25 19:30 08/29/25 19:56 08/29/25 19:30 08/29/25 19:56 08/29/25 19:30
Lab Data
08/29/25 10:36
08/29/25 06:23
Microbiology
08/29/25 01:56 Blood/Venous Blood Culture - Preliminary
Positive culture in progress
08/29/25 13:17 Nasal Swab Influenza Types A & B (JAMES) - Final
Negative for Influenza A & B, NAAT
Negative results must be combined with clinical observations
and patient history.
Nucleic Acid Amplification test (NAAT)performed on the
[employer] ID NOW platform.
Diagnostic Testing:
Physical Exam
-
HEENT: Normocephalic, Anicteric and Other (thick neck)
Cardiovascular: Irregular Rhythm (irregularly irregular) and Peripheral Edema ( +1 lower extremity edema bilaterally)
Respiratory: Wheeze (negative), Rales (predominantly on right hemithorax), Rhonchi (negative), Non-Labored Respirations and Other (diminished breath sounds due to body habitus)
GI: Soft, Distended (abdominal obesity), Non Tender and Normal Bowel Sounds
Neurology: Awake, Alert, Oriented and Tremors (negative)
Skin: Other (Patch of erythema seen on anterior distal right lower extremity)
General: Respiratory Distress (negative), Comfortable, Fever (negative) and Chills (negative)
Assessment
-
65-year-old male morbidly obese bed-bound male former tobacco smoker with a past medical history of chronic HFpEF, COPD, asthma, paroxysmal A-fib on Eliquis, AYLIN on CPAP, GERD, KELLY, DDD, and chronic sinusitis who presents with shortness of breath.
He says that his symptoms started 1 night prior to arrival. He denies any phlegm production or sick contacts. He has been using Sudafed and Afrin to help decongest his nasal cavity + chest but it has not been helping. He has been compliant with
the CPAP at [facility]. In the ER he was afebrile with pulse rate 117, respiratory rate 18, BP 138/101 and was saturating 95% on 6 L/min nasal cannula. Labs are pertinent for leukocytosis to 13.9, Hb 12.1, absolute eosinophil count: 300, potassium
level 3.2, proBNP 782 and COVID-19 antigen negative. Blood cultures collected, and flu swab was found to be negative. Initial CXR showed a large patchy and confluent increased attenuation throughout the left hemothorax. Differential includes
pneumonia, pleural fluid and atelectasis. In the ER he was given aztreonam, vancomycin, 10 mg Cardizem and potassium chloride, and he was admitted to telemetry. Patient's heart rate did become more controlled however on the morning of 08/29,
patient's heart rate increased again into the 120�130s. He was started on Toprol-XL, also given torsemide, and then required Cardizem drip. Patient then upgraded to IMU, and pulmonary service consulted for additional management/recommendations.
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
Impression:
#Left lower lobe pneumonia
#Acute respiratory failure with hypoxia due to above
#Rapid A-fib requiring Cardizem drip
#Bedbound status
#History of COPD (no PFTs or spirometry to review to confirm this)
#Bilateral otitis externa with right ear fullness/clogged
#Severe morbid obesity
#Chronic HFpEF
#AYLIN on CPAP
#GERD
#History of asthma
#Chronic sinusitis
#Former tobacco smoker (quit approximately 15 years ago)
Plan:
- Patient admitted due to shortness of breath and found to have rapid A-fib requiring Cardizem drip
- Continue management in IMU
- Rate control with goal HR<110
- Cardiology consulted and recommendations appreciated
- Replete K>4, Mg>2
- Keep MAP>65
- Although patient denies any recent sick contacts, and denies phlegm production, he has been more symptomatic with chest/sinus congestion and has been taking Sudafed + Afrin the last few days
- CXR is concerning for a left lower lobe pneumonia with component of atelectasis and pleural effusion � continue with Rocephin + doxycycline
- Recommend repeat imaging at least in 4 to 6 weeks to assure left-sided ammonia resolves/improves
- Mucolytics with prn nebulized bronchodilators (not currently bronchospastic)
- Patient is on Breo as an outpatient, and we will continue with a LABA/ICS with Symbicort 80 mcg while hospitalized
- Consider scheduled DuoNebs + budesonide instead of MDI if he has difficulty with using the Symbicort or if develops worsening SOB
- Currently not wheezing; if SOB worsens then would start systemic steroids.
- Maintain SpO2 88-95% with supplemental O2, weaning as tolerated
- Given the extent of his left-sided pneumonia, obtain CT chest (if he is able to fit on the table given his significant morbid obesity with BMI: 63.7)
- Obtain a sputum culture if patient can produce a decent sample
- Follow-up blood culture results (already growing GPC in clusters in 1 out of 4 bottles - ?contaminant)
- Obtain urine antigens for Legionella + strep pneumonia
- Trend WBC and monitor temperature curve
- He reports using CPAP at home for sleep apnea
- Continue with CPAP while hospitalized
- Incentive spirometer encouraged q1hr while awake
- Trend H/H and transfuse if needed to keep Hb>7g/dL; keep plt>20k, unless there is concern for bleeding then keep plt>50k
- Maintain euglycemia with goal BG >100 and <180; HbA1C: 6.1 on 08/29/2025
- DVT ppx: Eliquis
Pulmonary service will continue to follow along.
Data:
CXR 08/29/2025:
Limited by supine positioning and portable technique.
Stable examination. Persistent left lung opacity/consolidation especially in the mid lung zone, likely pneumonia. There is subtle blunting of lateral costophrenic angle, suggesting at least an element of pleural fluid.
Total time spent today was 78 minutes for this encounter. Time includes reviewing laboratory test/imaging results, reviewing pertinent medical records, obtaining and reviewing medical history, performing an appropriate exam, ordering medications,
tests and procedures. Time also includes documentation of this encounter, coordinating patient care and communicating with other healthcare professionals. Total time does not include separately billed tests performed on this date of service.
[2025-08-29] MEDS: BenGay-Like 1 APPLIC TOPICAL (17:53)
[2025-08-29 18:20] LABS: COVID-19 Antigen Negative (Negative)
[2025-08-29 18:31] LABS: Troponin I 0.020 ng/ml
--- NOTE | 2025-08-29 18:45 | CON.CAR ---
Consultation
Consultation Request
Date/Time Consultation Requested: 08/29/25
Date/Time Consultation Performed: 08/29/25
Requesting Provider: Dr. Damico
Performing Provider: Dr. Donaldson
Reason for Consultation: AF
Medical History
-
Chief Complaint: SOB, rapid AF
History of Present Illness:
I had the pleasure to meet Joey Sethi in IMU [id number] following his admission to [facility] on August 28, 2025 from local [facility] facility with increasing shortness of breath concerning for heart failure with preserved ejection
fraction as well as a left lower lobe pneumonia in rapid atrial fibrillation with history of paroxysmal atrial fibrillation. Ed also has morbid obesity with BMI greater than 60 with sleep apnea previously on CPAP although not currently at SNF and
COPD. And lives in [facility] and is followed by cardiology at [facility]. He had a prolonged hospitalization at [facility] about 6 weeks ago for surgery for a lymphedematous pannus and discharged to [facility] in
[place]. He states that he has been essentially bedbound following this surgery after he was 'dropped 'by a [employer] lift. He has been reporting sinus congestion, cough and shortness of breath that has been progressive for over a week. He denies
chest pain or pressure. He denies palpitations. He does have a history of paroxysmal atrial fibrillation on Eliquis however per nursing record was only on Eliquis once daily for unclear reasons. Hospitalist service has already requested records
from [facility] hospitalization and outpatient cardiology. Cardiology was consulted for assistance in managing heart failure with preserved ejection fraction as well as rapid atrial fibrillation.
-Pertinent lab work from ER: WBC 13.9, hemoglobin 12.1, platelets 254,000. Sodium 135, potassium initially 3.2, BUN and creatinine 18/0.7. Troponin initially less than 0.012. proBNP 782. COVID-negative. Influenza negative.
-Lab work today: Sodium 139, potassium 3.6, BUN and creatinine 18/0.6. Hemoglobin A1c 6.1%. Magnesium 1.4. AST/ALT within normal limits. Cardiac troponin trend less than 0.012�0 0.014�0 0.013�0.02. Total cholesterol 130, triglycerides 308, LDL
32, HDL 37, TSH 2.99. Blood culture from August 29 preliminarily positive with gram-positive cocci in clusters.
-Twelve-lead EKG atrial fibrillation with RVR, rightward axis and nonspecific ST-T wave abnormality
-lower extremity bilateral duplex markedly limited but no overt confirmation of DVT.
=Chest x-ray with persistent left lung opacity/consolidation suggesting pneumonia
Past medical history: Morbid obesity with BMI greater than 60, obstructive sleep apnea on CPAP, COPD, iron deficiency anemia, paroxysmal atrial fibrillation, chronic heart failure with preserved ejection fraction, lymphedema, GERD, Ambulatory
dysfunction.
Past Medical History
Past Medical History: Other (See HPI)
Past Surgical History: Other ([facility])
Social History
Tobacco: Non-Smoker
Alcohol: None
Drug: None
Living: Intermediate (senior living facility at [facility]. Resides in [place])
Family History
Family History: Reviewed & Not Pertinent
Allergies / Home Medications
Allergy/AdvReac Type Severity Reaction Status Date / Time
Penicillins Allergy Unknown Verified 08/28/25 23:15
�Medication �Instructions �Recorded �Confirmed �Type
acetaminophen 325 mg tablet 1,300 mg PO Q12H Pain 08/29/25 08/29/25 History
albuterol sulfate 2.5 mg/3 mL 2.5 mg inhalation [id number] PRN SOB 08/29/25 08/29/25 History
(0.083 %) solution for nebulization
albuterol sulfate 90 mcg/actuation 2 puff inhalation Q4HPRN PRN SOB 08/29/25 08/29/25 History
aerosol inhaler
apixaban 5 mg tablet (Eliquis) 5 mg PO HS Blood Clot Prevention/Tx 08/29/25 08/29/25 History
aspirin 81 mg chewable tablet 81 mg PO DAILY Blood Clot 08/29/25 08/29/25 History
Prevention/Tx
atorvastatin 20 mg tablet 20 mg PO DAILY High Cholesterol 08/29/25 08/29/25 History
cetirizine 10 mg tablet 10 mg PO DAILY Allergies 08/29/25 08/29/25 History
cyanocobalamin (vitamin B-12) 1,000 mcg PO DAILY Supplement 08/29/25 08/29/25 History
1,000 mcg tablet
ergocalciferol (vitamin D2) 1,250 1,250 mcg PO QMONTH Supplement 08/29/25 08/29/25 History
mcg (50,000 unit) capsule
ferrous sulfate 325 mg (65 mg 325 mg PO DAILY Supplement 08/29/25 08/29/25 History
iron) tablet
fluticasone furoate 100 1 inh inhalation DAILY 08/29/25 08/29/25 History
mcg-vilanterol 25 mcg/dose Lung/Breathing Issues
inhalation powder
fluticasone propionate 50 1 spray intranasal DAILY Allergies 08/29/25 08/29/25 History
mcg/actuation nasal
spray,suspension
metoprolol succinate 50 mg 50 mg PO DAILY Heart 08/29/25 08/29/25 History
tablet,extended release 24 hr Disease/Condition
montelukast 10 mg tablet 10 mg PO HS Allergies 08/29/25 08/29/25 History
omeprazole 20 mg tablet,delayed 20 mg PO DAILY Gastrointestinal 08/29/25 08/29/25 History
release Issue
potassium chloride 20 mEq 40 meq PO BID Electrolyte Repletion 08/29/25 08/29/25 History
tablet,extended release
pseudoephedrine HCl 30 mg tablet 30 mg PO Q4HPRN PRN sinus 08/29/25 08/29/25 History
congestion
torsemide 20 mg tablet 40 mg PO DAILY Fluid 08/29/25 08/29/25 History
Retention/Swelling
Review of Systems
-
History Source: Patient
All other systems: Negative unless noted
Constitutional: Weight Gain, Fatigue and Sleep Disturbance
EENT: Runny Nose
Respiratory: Cough and Trouble Breathing
Cardiac: No Symptoms
Abdomen/GI: No Symptoms
: No Symptoms
Musculoskeletal: Muscle Stiffness and Edema
Neurological: Weakness
Hematologic/Lymphatic: No Symptoms
Physical Exam
Vital Signs
Temp Pulse Resp BP Pulse Ox
97.9 F 100 16 138/86 97
08/29/25 15:12 08/29/25 18:05 08/29/25 18:05 08/29/25 11:09 08/29/25 18:05
Lab Results
08/29/25 10:36
08/29/25 06:23
Troponin I 0.020 ng/ml D 08/29/25 17:48
Wea-R-Enqtudgflqc Pept 782 pg/ml 08/28/25 23:16
Physical Exam
General: Other (Morbidly obese 65-year-old gentleman who appears older than stated age lying on left side and appears comfortable on nasal cannula O2)
HEENT: Normocephalic, Anicteric and Moist Mucous Membranes
Respiratory: Other (Bronchovesicular breath sounds decreased left greater than right with scattered rhonchi)
Cardiac: S1/S2, Irregular Rhythm and Other (Distant heart sounds); Negative Murmur or Rub
GI: Other (Morbidly obese. Nontender. Positive bowel sounds)
Musculoskeletal: Edema
Neuro: AO x 3
Psych: Calm
Impression / Plan
-
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
Impression:
Acute hypoxic respiratory insufficiency, multifactorial
Left lower lobe pneumonia
Bacteremia
Acute on chronic heart failure with preserved ejection fraction
Rapid atrial fibrillation with history of paroxysmal atrial fibrillation
Inappropriate Eliquis anticoagulation on admission
Morbid obesity with BMI greater than 60
Obstructive sleep apnea on CPAP
Iron deficiency anemia
Plan:
Rapid atrial fibrillation with history of paroxysmal atrial fibrillation
-Rates are better controlled currently on Cardizem drip
- Wean Cardizem drip currently at 15 to off
- Start Cardizem CD1 180 mg once daily. Continue metoprolol succinate and increase to 50 mg twice daily
- Continue Eliquis 5 mg twice daily; appropriate dose change at time of admission by hospitalist service
- Check 2D echocardiogram on Saturday with IV Definity
- TSH within normal limits
- Cardiac troponins not significantly elevated and not suggestive of ACS.
Chronic heart failure with preserved ejection fraction with difficult volume status determination. proBNP not significantly elevated but may be inaccurate in the setting of morbid obesity
- Will hold outpatient torsemide
- Start Lasix 40 mg IV twice daily
-Monitor renal function and electrolytes. Keep K greater than 4, mag greater than 2
- Check 2D echocardiogram
- Hopefully can obtain records from patient's outpatient cardiology team at [facility] on Saturday
Left lower no pneumonia/bacteremia with preliminary positive blood culture
- On empiric antibiotics
- Follow culture data
- Consider ID consult
Morbid obesity with sleep apnea and underlying COPD�would continue CPAP therapy which is not being utilized at his [facility] facility. Consider pulmonary consult.
Data Reviewed
-
EKG: Tracing Personally Visualized and interpreted
Labs: Labs Reviewed by me
[2025-08-29] MEDS: CARDIZEM CD 180 MG PO (19:14)
[2025-08-29] MEDS: DESENEX/MITRAZOL/ZEASORB 1 APPLIC TOPICAL (19:55)
[2025-08-29] MEDS: TRIAMCINOLONE ACETONIDE 0.1% TOPICAL (19:58)
[2025-08-29] MEDS: SINGULAIR 10 MG PO (22:31)
[2025-08-30] VITALS (23 sets, daily range): BP systolic 94–133; BP diastolic 53–107; PULSE 2–94
--- NOTE | 2025-08-30 03:35 | PTCARENOTE ---
patient placed on bipap settings overnight because desating into 70s on the cpap. bipap settings /. Patient refusing to be turned or repositioned in bed. Patient refusing care overnight, does not want to be bothered. male purewick in place.
cardizem gtt weaned off. assessment and vitals as charted. call israel in reach.
[2025-08-30 03:45] LABS: Hematocrit 37.8 % (39.0-52.0); Hemoglobin 11.2 g/dL (13.0-18.0); Mean Corp Hgb Conc. 29.6 g/dL (33.0-37.0); Mean Corpuscular Volume 83.6 fL (80.0-94.0); Platelet Count 237 10^3/uL (130-400); Red Cell Dist. Width 18.0 % (11.5-14.5)
[2025-08-30 04:11] LABS: Blood Urea Nitrogen 15 mg/dl (9-20); Calcium 7.6 mg/dl (8.4-10.2); Carbon Dioxide 32 mmol/L (22-30); Chloride 100 mmol/L (98-107); Estimated Creatinine Clearance > 125 ml/min; Glucose 118 mg/dl (70-99); Magnesium 1.3 mg/dl (1.6-2.3); Potassium 4.0 mmol/L (3.5-5.1); Sodium 135 mmol/L (135-145); eGFR > 60.00
[2025-08-30] MEDS: ROCEPHIN 1000 MG IV (05:24)
[2025-08-30] MEDS: STERILE WATER FOR INJECTION 10 ML IV (05:24)
--- NOTE | 2025-08-30 06:17 | PTCARENOTE ---
patient desating on bipap into 70s. TT RT to assess patient and bipap settings. RT plan is to pass along to dayshift to have pulmonary reevaluate, RT does not feel comfortable adjusting settings even higher. This RN increased o2 to 6L, patient still
desating. Woke patient up and patient said 'I can breath fine'. continuing to monitor. call israel in reach.
[2025-08-30] MEDS: SYMBICORT 80/4.5 MCG INHALER 2 PUFF INH ×2 (08:10→18:22)
[2025-08-30] MEDS: DESENEX/MITRAZOL/ZEASORB 1 APPLIC TOPICAL ×2 (09:29→20:10)
[2025-08-30] MEDS: CARDIZEM CD 180 MG PO (09:29)
[2025-08-30] MEDS: ELIQUIS 5 MG PO ×2 (09:29→20:08)
[2025-08-30] MEDS: KCL 40 MEQ PO ×2 (09:29→20:09)
[2025-08-30] MEDS: LASIX 40 MG IV ×2 (09:30→16:33)
[2025-08-30] MEDS: LIPITOR 20 MG PO (09:30)
[2025-08-30] MEDS: MUCINEX 1200 MG PO ×2 (09:30→20:09)
[2025-08-30] MEDS: PROTONIX 40 MG PO (09:30)
[2025-08-30] MEDS: TOPROL XL 50 MG PO (09:30)
[2025-08-30] MEDS: LOW STRENGTH ASPIRIN 81 MG PO (09:30)
[2025-08-30] MEDS: VIBRAMYCIN 100 MG PO ×2 (09:31→20:09)
--- NOTE | 2025-08-30 09:34 | W.PN.PUL.V3 ---
Today's Communication / Plan
-
Antibiotics
Diuresis
Wean oxygen
Follow radiographically
Atrial fibrillation rate control
Echocardiogram pending
Assessment
-
65-year-old male morbidly obese bed-bound male former tobacco smoker with a past medical history of chronic HFpEF, COPD, asthma, paroxysmal A-fib on Eliquis, AYLIN on CPAP, GERD, KELLY, DDD, and chronic sinusitis who presents with shortness of breath.
He says that his symptoms started 1 night prior to arrival. He denies any phlegm production or sick contacts. He has been using Sudafed and Afrin to help decongest his nasal cavity + chest but it has not been helping. He has been compliant with
the CPAP at [facility]. In the ER he was afebrile with pulse rate 117, respiratory rate 18, BP 138/101 and was saturating 95% on 6 L/min nasal cannula. Labs are pertinent for leukocytosis to 13.9, Hb 12.1, absolute eosinophil count: 300, potassium
level 3.2, proBNP 782 and COVID-19 antigen negative. Blood cultures collected, and flu swab was found to be negative. Initial CXR showed a large patchy and confluent increased attenuation throughout the left hemothorax. Differential includes
pneumonia, pleural fluid and atelectasis. In the ER he was given aztreonam, vancomycin, 10 mg Cardizem and potassium chloride, and he was admitted to telemetry. Patient's heart rate did become more controlled however on the morning of 08/29,
patient's heart rate increased again into the 120�130s. He was started on Toprol-XL, also given torsemide, and then required Cardizem drip. Patient then upgraded to IMU, and pulmonary service consulted for additional management/recommendations.
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
Impression:
#Left lower lobe pneumonia
#Acute respiratory failure with hypoxia due to above
#Rapid A-fib requiring Cardizem drip
#Bedbound status
#History of COPD (no PFTs or spirometry to review to confirm this)
#Bilateral otitis externa with right ear fullness/clogged
#Severe morbid obesity
#Chronic HFpEF
#AYLIN on CPAP
#GERD
#History of asthma
#Chronic sinusitis
#Former tobacco smoker (quit approximately 15 years ago)
Plan:
Respiratory status somewhat improved-still on oxygen and BiPAP at night with significant desaturations
Supplemental oxygen as needed
Nebulizers
Mucolytic's
Patient on Breo as an outpatient-Symbicort while hospitalized
Aspiration precautions
BiPAP at night-has CPAP at home for obstructive sleep apnea-details unclear-sleep specialist was in [facility]-he will attempt to obtain information
Follow chest [id number]
Unable to obtain CT chest because of his size-BMI 63-
Check sputum
Sputum culture if able
Empiric antibiotics for left lower lobe pneumonia
Atrial fibrillation rate control
Cardiology evaluation ongoing- Correspondence reviewed
Cardizem drip
Continue metoprolol
Echocardiogram pending
Diuresis as tolerated
Monitor renal function, electrolytes, intake/output, lower extremity edema and weight
Replace electrolytes as needed
Follow hemoglobin
Transfuse if needed
Monitor blood sugar
Insulin supplementation as needed
DVT prophylaxis-on Eliquis
Outpatient pulmonary/sleep disorders [id number] in [facility] for 'rehab'
Data:
CXR 08/29/2025:
Limited by supine positioning and portable technique.
Stable examination. Persistent left lung opacity/consolidation especially in the mid lung zone, likely pneumonia. There is subtle blunting of lateral costophrenic angle, suggesting at least an element of pleural fluid.
Total time spent today was 78 minutes for this encounter. Time includes reviewing laboratory test/imaging results, reviewing pertinent medical records, obtaining and reviewing medical history, performing an appropriate exam, ordering medications,
tests and procedures. Time also includes documentation of this encounter, coordinating patient care and communicating with other healthcare professionals. Total time does not include separately billed tests performed on this date of service.
Subjective Data
-
Date of Service:
Date of Service: August 30, 2025
Chief Complaint: Pulmonary Follow Up and Dyspnea Follow Up
Subjective:
Marginally tolerated BiPAP, complains of some shortness of breath, some chest congestion, complains of back and buttocks pain
Review of Systems
General: Other (Per HPI)
Objective Data
Data Reviewed
Vital Signs / I&O:
Vital Signs
Temp Pulse Resp BP Pulse Ox
98 F 84 15 117/71 88
08/30/25 08:00 08/30/25 05:45 08/30/25 05:45 08/30/25 05:00 08/30/25 05:45
Intake and Output
08/29/25 08/30/25 08/31/25
06:59 06:59 06:59
Intake Total 960 / 960
Output Total 500 / 500
Balance 460 / 460
SaO2: 88
Nasal Cannula flow liters per minute: 3
Physical Exam
General: Respiratory Distress and Comfortable
HEENT: Normocephalic, Anicteric and Moist Mucous Membranes
Cardiovascular: Regular Rhythm
Respiratory: Wheeze (n), Crackles (n), Rhonchi (n), Non-Labored Respirations, Accessory Resp Muscle Use (n) and Stridor (n)
GI: Soft, Non Distended, Non Tender and Other (Morbid obesity)
Neurology: Awake, Alert and No Motor Deficits
Skin: Warm, Good Color, Cyanosis (n), Jaundice and Rash (n)
Labs/Micro/Reports
Lab Data
08/30/25 03:26
08/30/25 03:26
Microbiology
08/29/25 01:56 Blood/Venous Blood Culture - Preliminary
Staphylococcus species
08/29/25 01:56 Blood/Venous Gram Stain - Preliminary
08/29/25 01:56 Blood/Venous Blood Culture - Preliminary
No Growth in 24 hours- Final report to follow
08/29/25 13:17 Nasal Swab Influenza Types A & B (JAMES) - Final
Negative for Influenza A & B, NAAT
Negative results must be combined with clinical observations
and patient history.
Nucleic Acid Amplification test (NAAT)performed on the
Mobile Location, IP platform.
[2025-08-30] MEDS: BenGay-Like 1 APPLIC TOPICAL ×2 (09:37→21:08)
--- NOTE | 2025-08-30 09:39 | W.PN.CARDCBS ---
Today's Communication / Plan
-
Re: atrial fibrillation with history of paroxysmal atrial fibrillation
Wean IV Cardizem drip to off as heart rates are better controlled
Continue Cardizem CD 180 mg daily and metoprolol succinate 50 mg twice a day
Continue Eliquis 5 mg twice a day
TSH and troponin within normal limit
Check 2D echocardiogram with IV Definity, pending
Continue IV Lasix diuresis 40 mg twice daily
Outpatient torsemide on hold
pBNP may be less accurate in the setting of super morbid obesity
Monitor renal function and electrolytes. Keep K greater than 4, mag greater than 2
Requested records from patient's outpatient cardiology team at [facility]
Cont CPAP
Impression / Plan
-
.
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
Impression:
Acute hypoxic respiratory insufficiency, multifactorial
Left lower lobe pneumonia
Bacteremia
Acute on chronic heart failure with preserved ejection fraction
Rapid atrial fibrillation with history of paroxysmal atrial fibrillation
Inappropriate Eliquis anticoagulation on admission
Morbid obesity with BMI greater than 60
Obstructive sleep apnea on CPAP
Iron deficiency anemia
Plan:
Re: atrial fibrillation with history of paroxysmal atrial fibrillation
Wean IV Cardizem drip to off as heart rates are better controlled
Continue Cardizem CD 180 mg daily and metoprolol succinate 50 mg twice a day
Continue Eliquis 5 mg twice a day
TSH and troponin within normal limit
Check 2D echocardiogram with IV Definity, pending
Continue IV Lasix diuresis 40 mg twice daily
Outpatient torsemide on hold
pBNP may be less accurate in the setting of super morbid obesity
Monitor renal function and electrolytes. Keep K greater than 4, mag greater than 2
Requested records from patient's outpatient cardiology team at [facility]
Left lower lobe pneumonia/bacteremia with preliminary positive blood culture
Cont empiric antibiotics
Pulm following
Morbid obesity with sleep apnea and underlying COPD
Cont CPAP therapy which is not being utilized at his shelter facility.
Discussed with nursing.
Progress Note - Molder Machine Tender
Subjective
Date of Service: August 30, 2025
Pt seen and examined. No chest pain. Breathing better
Objective
Labs:
08/30/25 03:26
08/30/25 03:26
Labs
Hgb 11.2 g/dL (13.0-18.0) L 08/30/25 03:26
Hct 37.8 % (39.0-52.0) L 08/30/25 03:26
Plt Count 237 10^3/uL (130-400) 08/30/25 03:26
Sodium 135 mmol/L (135-145) 08/30/25 03:26
Potassium 4.0 mmol/L (3.5-5.1) 08/30/25 03:26
BUN 15 mg/dl (9-20) 08/30/25 03:26
Creatinine 0.6 mg/dL (0.7-1.3) L 08/30/25 03:26
Glucose 118 mg/dl (70-99) H 08/30/25 03:26
Troponins
08/28/25 08/29/25 08/29/25
23:16 06:23 10:36
Troponin I < 0.012 0.014 0.013
08/29/25 08/29/25 08/29/25
11:30 17:13 17:48
Troponin I Cancelled Cancelled 0.020 D
08/29/25
23:30
Troponin I Cancelled
Vital Signs and I&O:
Vital Signs
Temp Pulse Resp BP Pulse Ox
98 F 92 15 105/57 88
08/30/25 08:00 08/30/25 09:30 08/30/25 05:45 08/30/25 09:30 08/30/25 09:34
Vital Signs
Temp Pulse Resp BP Pulse Ox
98 F 92 15 105/57 88
08/30/25 08:00 08/30/25 09:30 08/30/25 05:45 08/30/25 09:30 08/30/25 09:34
Intake & Output
08/28/25 08/29/25 08/30/25 08/31/25
06:59 06:59 06:59 06:59
Intake Total 960 / 960
Output Total 500 / 500
Balance 460 / 460
Physical Exam
Physical Exam
General: No acute distress, AAOX3
Neck: Negative JVD
Heart: Irregularly irregular, Negative S3 positive S1/S2, Negative S4, No murmur
Lungs: CTA b/l, negative wheezes/rales/rhonchi
Abd: Super morbid obesity positive BS, NT/ND, neg rebound/rigidity/guarding
Ext: Negative cyanosis/clubbing/edema
Neuro: nonfocal
--- NOTE | 2025-08-30 13:21 | PTCARENOTE ---
Patient ordered bariatric bed, it arrived and patient moved onto new bed.
[2025-08-30] MEDS: TYLENOL 650 MG PO ×2 (13:44→20:08)
--- NOTE | 2025-08-30 14:20 | CARDSERVLU ---
Echocardiogram with Lumason completed after protocol screening completed. Allergies verified.
Patent IV site: __R FA___
IV site flushed with 0.9% NaCl pre and post administration.
Diluted bolus method utilized to enhance visualization of ventricular bill.
Total volume given: __4__ mL
Patient tolerated all procedures well without complications.
--- NOTE | 2025-08-30 14:33 | W.PN.HOSP.TC ---
Today's Communication/Plan
-
wean cardiezem
ear drops for wax
Assessment / Plan
Assessment / Plan
65M w/morbid obesity, AYLIN on CPAP and A-Fib p/w SOB.
1. Acute Hypoxemic Respiratory Insufficiency 2/2 LLL Pneumonia
Strep/Legionella negative, COVID/flu negative
Blood cultures Staph aureus/Staph epidermidis, concern for contamination
Repeat blood cultures
Continue empiric IV antibiotic
pulmonary consulted appreciate recs
CT chest reviewed ARNOLD opacities represent pneumonia associated with likely reactive mediastinal lymph nodes
Supportive care including nebs, mucolytics, etc.
2. Chronic HFpEF
Follow-up repeat echo
Appreciate cardiology consult
LE dopplers negative for DVT but liimted study
3. Paroxysmal Atrial Fibrillation with RVR
- IV Cardizem wean as able
oral cardizem and BB
- Continue Eliquis BID
- Cardiology evaluation as noted above.
- Would avoid further Sudafed doses.
4. Hypokalemia
- Continue potassium supplementation and adjust dosing as needed.
- replete Mg.
5. COPD without Acute Exacerbation
- Continue current inhaled medications / PRN nebs.
- No wheezing appreciated on exam.
6. AYLIN on CPAP
- Patient uses AutoPAP at home / SNF - can use home device if it can be delivered here.
- Nightly CPAP for now at 10cm H2O and titrate for comfort.
7. s/p Panniculectomy
- Stable. Surgical site appears well-healed. No current issues.
8. Morbid Obesity due to excess calories
- BMI > 60.
- Affects all aspects of care.
DVT Prophylaxis: On Eliquis
Code Status: Full
Anticipated Discharge: > 48 hours
Subjective/Interval History
-
Date of Service: August 30, 2025
Patient complaining of pain in his right ear, sounds like he is underwater. Denies chest pain or shortness of breath. RN at bedside
Objective Data
-
Labs:
Laboratory Results
08/30/25
03:26
WBC 11.3 H
Hgb 11.2 L
Hct 37.8 L
Plt Count 237
Sodium 135
Potassium 4.0
Chloride 100
Carbon Dioxide 32 H
BUN 15
Creatinine 0.6 L
Glucose 118 H
Calcium 7.6 L
Vital Signs:
Vital Signs
Temp Pulse Resp BP Pulse Ox
98.3 F 92 13 117/65 90
08/30/25 11:25 08/30/25 13:19 08/30/25 13:19 08/30/25 13:19 08/30/25 12:00
I&O
08/29/25 08/30/25 08/31/25
06:59 06:59 06:59
Intake Total 960 / 960 240 / 240
Output Total 500 / 500 1000 / 1000
Balance 460 / 460 -760 / -760
Review of Systems
-
All other systems: Reviewed and negative
Physical Exam
-
General: No Apparent Distress, Conversant and Morbidly Obese
HEENT: Anicteric, PERRLA and Other (Wax and erythematous rash with peeling skin noted in and around right ear)
Respiratory: Clear to Auscultation; Negative Wheezes or Rales
Cardiac: S1/S2 and Irregular Rhythm; Negative Murmur
GI: Soft, Nontender, Nondistended and Normal Bowel Sounds
Musculoskeletal: No Edema
Skin: Warm, Dry and Rash (Erythematous peeling rash on face especially forehead and ears)
Neuro: Awake and AO x 3
Psych: Calm
Data Reviewed
-
Labs: Labs Reviewed by me and Discussed with Patient
[2025-08-30] MEDS: TRIAMCINOLONE ACETONIDE 0.1% TOPICAL ×2 (14:52→20:11)
[2025-08-30] MEDS: HYDROPHOR 1 APPLIC TOPICAL (16:33)
[2025-08-30] MEDS: TOPROL XL PO (20:09)
[2025-08-30] MEDS: SINGULAIR 10 MG PO (20:09)
[2025-08-30] MEDS: MAGNESIUM OXIDE 400 MG PO (20:09)
[2025-08-30] MEDS: DEBROX EAR DROPS 1 DROP RIGHT EAR (20:10)
[2025-08-31] VITALS (14 sets, daily range): BP systolic 97–136; BP diastolic 50–93
[2025-08-31] MEDS: VENTOLIN NEBULES 2.5 MG INH ×4 (00:23→22:04)
--- NOTE | 2025-08-31 00:31 | W.PN.UPDATE ---
Update Note
Progress Note Update
~ Midnight Pt c/o he could not breath and having chest pain that he said started after being put on the Bipap. He removed Bipap within 10 minutes, changed to CPap and tolerated for approx 30 minutes.
Vital signs stable: BP 112/64 (MAP 76), HR 100-110, afib on the monitor, 93% on room air.
Attempted to get EKG, patient uncooperative, unable to get EKG. Requested breathing treatment, given. Patient stated he felt better after the breathing treatment and chest pain was better.
~3 am - Pt c/o SOB and feels like right lung is 'spasming', O2 sat 98% on 2L NC. Lung sounds muffled, no wheezing, noted. Patient stated he needs an inhaler, medication ordered. Pt also insisting that he needs Doxycycline and Prednisone 20 mg
ordered. Offered small dose of Morphine for respiratory symptoms, patient adamantly declined, 'It's not that bad'. Respiratory in to see patient, inhaler given. Patient states breathing/spasms better after inhaler.
--- NOTE | 2025-08-31 00:47 | PTCARENOTE ---
patient arguing with this RN and RT about cpap/bipap mask overnight. All staff explained patient oxygen levels dropped the night before on cpap and that is why he was switched to bipap. Patient very upset and does not believe staff about bipap,
patient refusing bipap and only wants cpap. Placed patient on cpap machine. Patient wore cpap for about 30 mins and then removed mask. Patient stated he can't breath and is having chest discomfort. COMMISSIONING ENGINEER at bedside. attempted to obtain ekg but was
unsuccessful- patient uncooperative. PRN breathing treatment applied. patient stating 'this is happening because you put me on bipap instead of cpap and this place doesn't carry the inhalator i use'. Stated that patient family or friend could bring
in his inhalator. Patient stated that hospital staff should be going to the pharmacy and getting his prescription for him. Patient had relief with breathing treatment. patient refusing to go on cpap or oxygen at this moment. Patient stating 'my
oxygen saturation is 96% and that is too high for me and that's the problem'. continuing to monitor. call [place] in reach.
[2025-08-31] MEDS: TYLENOL 650 MG PO ×3 (02:30→20:11)
[2025-08-31 04:19] LABS: Blood Urea Nitrogen 12 mg/dl (9-20); Calcium 7.0 mg/dl (8.4-10.2); Carbon Dioxide 28 mmol/L (22-30); Chloride 103 mmol/L (98-107); Estimated Creatinine Clearance > 125 ml/min; Glucose 113 mg/dl (70-99); Potassium 3.3 mmol/L (3.5-5.1); Sodium 134 mmol/L (135-145); eGFR > 60.00
[2025-08-31 04:50] LABS: Hematocrit 36.1 % (39.0-52.0); Hemoglobin 10.9 g/dL (13.0-18.0); Mean Corp Hgb Conc. 30.2 g/dL (33.0-37.0); Mean Corpuscular Volume 80.9 fL (80.0-94.0); Nucleated Red Blood Cells % 0 % (-); Platelet Count 211 10^3/uL (130-400); Red Cell Dist. Width 18.1 % (11.5-14.5)
[2025-08-31] MEDS: ROCEPHIN 1000 MG IV (05:24)
[2025-08-31] MEDS: STERILE WATER FOR INJECTION 10 ML IV (05:25)
--- NOTE | 2025-08-31 07:34 | W.PN.CARDCBS ---
Today's Communication / Plan
-
Continue Cardizem CD 180 mg daily and metoprolol succinate 50 mg twice a day
Continue Eliquis 5 mg BID for prophylaxis.
Limited TDS 2D echocardiogram Aug 30 with preserved LV function within the limitations of the study.
Continue IV Lasix diuresis 40 mg twice daily.
Is and Os negative over 2500 ml last 24 hrs.
Check daily wts
With agitation, consider psychiatric eval.
Impression / Plan
-
.
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
Impression:
Acute hypoxic respiratory insufficiency, multifactorial
Left lower lobe pneumonia
Bacteremia
Acute on chronic heart failure with preserved ejection fraction
Rapid atrial fibrillation with history of paroxysmal atrial fibrillation
Inappropriate Eliquis anticoagulation on admission
Morbid obesity with BMI greater than 60
Obstructive sleep apnea on CPAP
Iron deficiency anemia
Plan:
Remains aFib with improved rate control.
Continue Cardizem CD 180 mg daily and metoprolol succinate 50 mg twice a day
Continue Eliquis 5 mg BID for prophylaxis.
TSH and troponin within normal limits
Limited TDS 2D echocardiogram Aug 30 with preserved LV function within the limitations of the study.
Continue IV Lasix diuresis 40 mg twice daily.
Is and Os negative over 2500 ml last 24 hrs.
Outpatient torsemide on hold
pBNP may be less accurate in the setting of super morbid obesity
Monitor renal function and replete lytes as needed. Keep K greater than 4, mag greater than 2
Requested records from patient's outpatient cardiology team at [facility]
With agitation, consider psychiatric eval.
Left lower lobe pneumonia/bacteremia with preliminary positive blood culture
Cont empiric antibiotics
Pulm following
Morbid obesity with sleep apnea and underlying COPD
Cont CPAP therapy which is not being utilized at his long-term facility.
Discussed with nursing.
Progress Note - Grease Refiner Operator
Subjective
Date of Service: August 31, 2025
Pt seen and examined. He complains of dyspnea
Objective
Labs:
08/31/25 03:53
08/31/25 03:53
Labs
Hgb 10.9 g/dL (13.0-18.0) L 08/31/25 03:53
Hct 36.1 % (39.0-52.0) L 08/31/25 03:53
Plt Count 211 10^3/uL (130-400) 08/31/25 03:53
Sodium 134 mmol/L (135-145) L 08/31/25 03:53
Potassium 3.3 mmol/L (3.5-5.1) L 08/31/25 03:53
BUN 12 mg/dl (9-20) 08/31/25 03:53
Creatinine 0.5 mg/dL (0.7-1.3) L 08/31/25 03:53
Glucose 113 mg/dl (70-99) H 08/31/25 03:53
Troponins
08/28/25 08/29/25 08/29/25
23:16 06:23 10:36
Troponin I < 0.012 0.014 0.013
08/29/25 08/29/25 08/29/25
11:30 17:13 17:48
Troponin I Cancelled Cancelled 0.020 D
08/29/25
23:30
Troponin I Cancelled
Vital Signs and I&O:
Vital Signs
Temp Pulse Resp BP Pulse Ox
98.1 F 87 16 109/76 97
08/31/25 03:15 08/31/25 06:33 08/31/25 06:33 08/31/25 06:00 08/31/25 06:33
Vital Signs
Temp Pulse Resp BP Pulse Ox
98.1 F 87 16 109/76 97
08/31/25 03:15 08/31/25 06:33 08/31/25 06:33 08/31/25 06:00 08/31/25 06:33
Intake & Output
08/29/25 08/30/25 08/31/25 09/01/25
06:59 06:59 06:59 06:59
Intake Total 960 / 960 720 / 720
Output Total 500 / 500 3300 / 3300
Balance 460 / 460 -2580 / -2580
Physical Exam
Physical Exam
General: No acute distress, AAOX3
Neck: Negative JVD
Heart: Irregularly irregular, Negative S3 positive S1/S2, Negative S4, No murmur
Lungs: CTA b/l, negative wheezes/rales/rhonchi
Abd: Super morbid obesity positive BS, NT/ND, neg rebound/rigidity/guarding
Ext: Negative cyanosis/clubbing/edema
Neuro: nonfocal
[2025-08-31] MEDS: SYMBICORT 80/4.5 MCG INHALER INH ×2 (08:18→08:24)
[2025-08-31] MEDS: MUCINEX 1200 MG PO ×2 (09:00→20:06)
[2025-08-31] MEDS: PROTONIX 40 MG PO (09:00)
[2025-08-31] MEDS: MAGNESIUM OXIDE 400 MG PO ×2 (09:00→20:07)
[2025-08-31] MEDS: ELIQUIS 5 MG PO ×2 (09:01→20:06)
[2025-08-31] MEDS: LOW STRENGTH ASPIRIN 81 MG PO (09:01)
[2025-08-31] MEDS: TOPROL XL 50 MG PO ×2 (09:01→20:07)
[2025-08-31] MEDS: LIPITOR 20 MG PO (09:01)
[2025-08-31] MEDS: CARDIZEM CD 180 MG PO (09:01)
[2025-08-31] MEDS: KCL 40 MEQ PO ×2 (09:01→20:06)
[2025-08-31] MEDS: VIBRAMYCIN 100 MG PO ×2 (09:01→20:08)
[2025-08-31] MEDS: BenGay-Like 1 APPLIC TOPICAL ×2 (09:02→20:08)
[2025-08-31] MEDS: DEBROX EAR DROPS 5 DROP RIGHT EAR (09:02)
[2025-08-31] MEDS: LASIX 40 MG IV ×2 (09:02→15:14)
[2025-08-31] MEDS: HYDROPHOR 1 APPLIC TOPICAL (09:02)
[2025-08-31] MEDS: DESENEX/MITRAZOL/ZEASORB 1 APPLIC TOPICAL ×2 (09:03→20:07)
[2025-08-31] MEDS: TRIAMCINOLONE ACETONIDE 0.1% TOPICAL ×2 (09:04→20:16)
--- NOTE | 2025-08-31 09:56 | W.PN.PUL.V3 ---
Today's Communication / Plan
-
Try CPAP instead of BiPAP
Diuresis as tolerated
Antibiotics
Assessment
-
65-year-old male morbidly obese bed-bound male former tobacco smoker with a past medical history of chronic HFpEF, COPD, asthma, paroxysmal A-fib on Eliquis, AYLIN on CPAP, GERD, KELLY, DDD, and chronic sinusitis who presents with shortness of breath.
He says that his symptoms started 1 night prior to arrival. He denies any phlegm production or sick contacts. He has been using Sudafed and Afrin to help decongest his nasal cavity + chest but it has not been helping. He has been compliant with
the CPAP at [facility]. In the ER he was afebrile with pulse rate 117, respiratory rate 18, BP 138/101 and was saturating 95% on 6 L/min nasal cannula. Labs are pertinent for leukocytosis to 13.9, Hb 12.1, absolute eosinophil count: 300, potassium
level 3.2, proBNP 782 and COVID-19 antigen negative. Blood cultures collected, and flu swab was found to be negative. Initial CXR showed a large patchy and confluent increased attenuation throughout the left hemothorax. Differential includes
pneumonia, pleural fluid and atelectasis. In the ER he was given aztreonam, vancomycin, 10 mg Cardizem and potassium chloride, and he was admitted to telemetry. Patient's heart rate did become more controlled however on the morning of 08/29,
patient's heart rate increased again into the 120�130s. He was started on Toprol-XL, also given torsemide, and then required Cardizem drip. Patient then upgraded to IMU, and pulmonary service consulted for additional management/recommendations.
Chronic conditions [employer]:: morbid obesity, chronic HFpEF, paroxysmal A-fib on Eliquis, history of COPD on Breo, AYLIN on CPAP, GERD, history of asthma, iron deficiency anemia, DDD, chronic sinusitis, former tobacco smoker
Impression:
#Left lower lobe pneumonia
#Acute respiratory failure with hypoxia due to above
#Rapid A-fib requiring Cardizem drip
#Bedbound status
#History of COPD (no PFTs or spirometry to review to confirm this)
#Bilateral otitis externa with right ear fullness/clogged
#Severe morbid obesity
#Chronic HFpEF
#AYLIN on CPAP
#GERD
#History of asthma
#Chronic sinusitis
#Former tobacco smoker (quit approximately 15 years ago)
Plan:
Respiratory status still somewhat tenuous-did not tolerate BiPAP-he wants his CPAP from [facility]
Supplemental oxygen as needed-97% saturation
Nebulizers continue
Mucolytic's
Patient on Breo as an outpatient-Symbicort while hospitalized
Aspiration precautions
BiPAP at night-not tolerating and wants CPAP-has CPAP at home for obstructive sleep apnea-details unclear-sleep specialist was in [facility]-he will attempt to obtain information-Will attempt to obtain CPAP from [facility]
Follow chest x-ray
CT chest 08/30/2025-consolidation and mild adjacent opacification left upper lobe and mildly prominent mediastinal lymph nodes, scattered pulmonary nodules measuring up to 8 mm in the right lower lobe
Cultures reviewed
Blood cultures pending
Urine Legionella and streptococcal pneumoniae antigen negative
MRSA screen negative
MRSA influenza negative
Initial blood culture 08/29/2025-Staph aureus methicillin sensitive and Staph epidermidis
Sputum culture if able
Empiric antibiotics for left lower lobe pneumonia
Atrial fibrillation rate control
Cardiology evaluation ongoing- Correspondence reviewed
Cardizem drip
Continue metoprolol
Echocardiogram 08/30/2025-very technically limited, normal left ventricular size, mild concentric left ventricular hypertrophy, left ventricular systolic function appears to be normal with
Diuresis as tolerated -2.58 L / 24-hour
Monitor renal function, electrolytes, intake/output, lower extremity edema and weight
Replace electrolytes as needed
Follow hemoglobin-stable at 10.9
Transfuse if needed
Monitor blood sugar
Insulin supplementation as needed
DVT prophylaxis-on Eliquis
Outpatient pulmonary/sleep disorders [id number] in [facility] for 'rehab'
Data:
CXR 08/29/2025:
Limited by supine positioning and portable technique.
Stable examination. Persistent left lung opacity/consolidation especially in the mid lung zone, likely pneumonia. There is subtle blunting of lateral costophrenic angle, suggesting at least an element of pleural fluid.
Subjective Data
-
Date of Service:
Date of Service: August 31, 2025
Chief Complaint: Pulmonary Follow Up and Dyspnea Follow Up
Subjective:
Did not tolerate BiPAP, complains of shortness of breath, no congestion, productive cough, has some chest tightness
Review of Systems
General: Other (Per HPI)
Objective Data
Data Reviewed
Vital Signs / I&O:
Vital Signs
Temp Pulse Resp BP Pulse Ox
98.1 F 99 16 119/71 97
08/31/25 03:15 08/31/25 09:01 08/31/25 06:33 08/31/25 09:01 08/31/25 06:33
Intake and Output
08/30/25 08/31/25 09/01/25
06:59 06:59 06:59
Intake Total 960 / 960 720 / 720
Output Total 500 / 500 3300 / 3300
Balance 460 / 460 -2580 / -2580
SaO2: 97
Nasal Cannula flow liters per minute: 3
Physical Exam
General: Respiratory Distress and Comfortable
HEENT: Normocephalic, Anicteric and Moist Mucous Membranes
Cardiovascular: Regular Rhythm
Respiratory: Wheeze (n), Crackles (n), Rhonchi (n), Non-Labored Respirations, Accessory Resp Muscle Use (n) and Stridor (n)
GI: Soft, Non Distended, Non Tender and Other (Morbid obesity)
Neurology: Awake, Alert and No Motor Deficits
Skin: Warm, Good Color, Cyanosis (n), Jaundice and Rash (n)
Labs/Micro/Reports
Lab Data
08/31/25 03:53
08/31/25 03:53
Microbiology
08/29/25 01:56 Blood/Venous Blood Culture - Preliminary
S aureus-Methicillin Sensitive
Staphylococcus epidermidis
08/29/25 01:56 Blood/Venous Gram Stain - Final
08/29/25 01:56 Blood/Venous Blood Culture - Preliminary
No Growth in 48 hours- Final report to follow
08/29/25 13:17 Nose MRSA Screen - Final
No Methicillin Resistant Staphylococcus aureus isolated.
08/30/25 11:52 Urine Legionella Urinary Antigen - Final
Negative for Legionella pneumophila Serogroup 1 antigen.
A negative result does not rule out the possiblity of
Legionella infection due to other serogroups or species of
Legionella. Clinical correlation is recommended.
08/30/25 11:52 Urine Streptococcus pneumoniae Antigen (M - Final
Negative for Streptococcus pneumoniae antigen.
A negative result does not exclude infection with
Streptococcus pneumoniae. Clinical correlation is
recommended.
08/29/25 13:17 Nasal Swab Influenza Types A & B (JAMES) - Final
Negative for Influenza A & B, NAAT
Negative results must be combined with clinical observations
and patient history.
Nucleic Acid Amplification test (NAAT)performed on the
[employer] platform.
--- NOTE | 2025-08-31 11:14 | PTCARENOTE ---
Patient AAOx3, CHUATHBALUK, c/o right shoulder pain, states it started after a tug at snf where he then received xrays and no further treatment, notified MD. Patient refusing to move due to shoulder pain, although have seen patient holding arm up
to look at phone. Constantly in same lying position, flat and on left side. Educated thoroughly about the risk for pressure ulcers and poor lung positioning. RA, sats 93%. VSS. Afib on monitor. Patient refusing breakfast. Will closely monitor and
encourage more movement.
--- NOTE | 2025-08-31 13:01 | PN.CDI ---
CDI
- -
CDI:
Physician Documentation Request
Admit Date: 08/29/25 03:27
Dear Doctor,
Patient admitted for pneumonia.
08/30 Cardiology PN: 'Acute on chronic heart failure with preserved ejection fraction...Continue IV Lasix diuresis 40 mg twice daily, Outpatient torsemide on hold, pBNP may be less accurate in the setting of super morbid obesity'
08/30 Hospitalist PN: 'Chronic HFpEF, Follow-up repeat echo'
Please provide further specificity regarding the most likely acuity of CHF you are evaluating, treating or monitoring.
Acute on chronic
Chronic
Other
Use of terms such as suspected, likely, concern for, or probable (associated with a specific diagnosis that is being evaluated, monitored, or treated as if it exists) are acceptable and can be coded in the inpatient setting, when documented at the
time of discharge.
Thank you,
Henny Grullon RN, BSN
CDI Specialist
Available via [place] text
Please use your independent medical judgment in providing your response.
--- NOTE | 2025-08-31 14:24 | CON.ID ---
Consultation
-
Date/Time Consultation Requested: August 31, 2025 1407
Date/Time Consultation Performed: August 31, 2025 1425
Requesting Provider: Dr. Nunu Canales
Performing Provider: Dr. Mary Berrios
Reason for Consultation: bacteremia
Chief Complaint / Past History
Chief Complaint
Worsening shortness of breath
History of Present Illness
65-year-old male with history of asthma/COPD, atrial fibrillation, heart failure, class III obesity BMI 64, sleep apnea recently underwent abdominal lymphedematous panniculectomy at [facility] July 2025 and discharged to [facility]
facility more than 2 weeks ago. He reports he has been having breathing problems for the past 2-1/2 weeks. He experienced chest tightness and wheezing for which he presented to the ED August 12. Chest x-ray showed hazy opacity left lung base.
COVID-negative. Influenza negative. COPD exacerbation suspected and he was discharged on steroid. He did not improve. He returned to the ED August 19 with chest discomfort, shortness of breath. He continues to have lingering cough. He was
discharged with diagnosis of musculoskeletal chest pain. He presented back to the ER August 28 due to progressively worse shortness of breath over the past week with nonproductive cough. Positive sinus congestion. No fever or chills. He states
he takes Tylenol frequently for arthritis which can mask the fever. In ER white count of 13.9. Chest x-ray showed large amount of patchy and confluent opacity throughout the left hemithorax.Chest CT with consolidation left upper lobe extending to
the superior left lower lobe, scattered pulmonary nodules. Patient has been on ceftriaxone and doxycycline. The admission blood cultures 1 out of 2 sets positive for MSSA and Staphylococcus epidermidis. He reports likely improve shortness of
breath. He does not like the BiPAP/CPAP here in the hospital. No diarrhea. No urine symptoms.
Past History
Additional Past Medical History:
Asthma/COPD
Atrial fibrillation on Eliquis
HFpEF
Urine incontinence
Obstructive sleep apnea on CPAP
Class III obesity BMI 64
Chronic sinusitis
Abdominal lymphedematous panniculectomy (25 lbs) at [facility] (07/2025)
Hernia repair
Bed-bound since 'dropped from a jamar-lift at a facility'
Allergy History:
Penicillins Allergy (Verified 08/28/25 23:15)
Unknown
Medications Reviewed: Yes
Current Antibiotics:
Ceftriaxone
Doxycycline
Social History
Tobacco: Former Smoker
Alcohol: None
Drug: None
Living: Senior Living ([facility])
Family History
Family History: Not Pertinent
Review of Systems
Review of Systems
General: Negative Change in Appetite
HEENT: Negative Headache or Pharyngitis
Cardiovascular: Dyspnea
Respiratory: Dyspnea and Cough; Negative Sputum Production
Gasteroenterology: Negative Nausea, Vomiting or Diarrhea
Genital / Urological: Negative Dysuria or Flank Pain
Endocrine: Negative Weakness
All systems: All other systems were reviewed and were negative
Vital Signs
Temp Pulse Resp BP Pulse Ox
98.8 F 79 18 136/93 92
08/31/25 12:16 08/31/25 13:26 08/31/25 13:26 08/31/25 10:00 08/31/25 13:26
Physical Exam
Physical Exam
Constitutional: No Acute Distress, Comfortable and Obese
Head: Other (No sinus tenderness)
Eyes: No Conjunctival Hemorrhage and Sclera Anicteric
Cardiovascular: Irregular Rate and S1/S2
Pulmonary: Other (Decreased airway movement)
Gastrointestinal: Soft, Non Tender, Non Distended and Normal Bowel Sounds
Genito-Urinary: Negative CVA Tenderness
Extremities: Edema
Musculoskeletal: Negative Spinal Tenderness
Wound: Other (Incision under pannus dry, no erythema)
Neurological: AO x 3
Lab / Diagnostic Study Results
08/31/25 03:53
Abs Immat Gran (auto) 0.1 10^3/uL (0-0.05) H 08/31/25 03:53
Absolute Neuts (auto) 8.5 10^3/uL (1.4-6.5) H 08/31/25 03:53
Absolute Lymphs (auto) 2.8 10^3/uL (1.2-3.4) 08/31/25 03:53
Absolute Monos (auto) 1.2 10^3/uL (0.1-0.6) H 08/31/25 03:53
Absolute Basos (auto) 0.1 10^3/uL (0-0.2) 08/31/25 03:53
Immature Gran % 0.7 % (0-0.5) H 08/31/25 03:53
Neutrophils % 65.9 % (42.2-75.2) 08/31/25 03:53
Lymphocytes % 21.5 % (20.5-51.1) 08/31/25 03:53
Monocytes % 9.1 % (1.7-9.3) 08/31/25 03:53
Eosinophils % 2.2 % (0-6) 08/31/25 03:53
Basophils % 0.6 % (0-2) 08/31/25 03:53
Lactic Acid 1.8 mmol/L (0.7-2.0) 08/29/25 06:23
Microbiology Results
Micro:
08/29/25 01:56 Blood Culture - Preliminary
Blood/Venous S aureus-Methicillin Sensitive
Staphylococcus epidermidis
Gram Stain - Final
08/29/25 01:56 Blood Culture - Preliminary
Blood/Venous No Growth in 48 hours- Final report to follow
08/30/25 16:41 Blood Culture - Pending
Blood/Venous
08/30/25 14:37 Blood Culture - Pending
Blood/Venous
08/29/25 13:17 MRSA Screen - Final
Nose No Methicillin Resistant Staphylococcus aureus isolated.
08/30/25 11:52 Legionella Urinary Antigen - Final
Urine Negative for Legionella pneumophila Serogroup 1 antigen.
A negative result does not rule out the possiblity of
Legionella infection due to other serogroups or species of
Legionella. Clinical correlation is recommended.
Streptococcus pneumoniae Antigen (M - Final
Negative for Streptococcus pneumoniae antigen.
A negative result does not exclude infection with
Streptococcus pneumoniae. Clinical correlation is
recommended.
08/29/25 13:17 Influenza Types A & B (JAMES) - Final
Nasal Swab Negative for Influenza A & B, NAAT
Negative results must be combined with clinical observations
and patient history.
Nucleic Acid Amplification test (NAAT)performed on the
[employer] platform.
08/30/[address]: There is a consolidation with mild adjacent opacities within the left upper lobe which extends slightly into the superior left lower lobe which likely represents pneumonia. There is associated mildly prominent mediastinal lymph
nodes which are likely reactive. There are scattered pulmonary nodules measuring up to 7.8 mm in the right lower lobe. Recommend follow-up CT chest to ensure stability per Fleischner guidelines. Mild fusiform dilation of the ascending thoracic
aorta measuring 4.0 cm.
08/29/25 CXR: Persistent left lung opacity/consolidation especially in the mid lung zone, likely pneumonia.
08/28/25 CXR: There is a large amount of patchy and confluent increased attenuation throughout the left hemithorax. This could represent posterior layering of pleural fluid and/or pulmonary parenchymal consolidation, such as pneumonia.
Assessment / Plan
# L lung pneumonia
# Uncomplicated MSSA bacteremia 1 of 2 sets, most like lung source
# Staphylococcal epidermidis bacteremia 1 of 2 sets =contaminant
# Leukocytosis
#A-fib with RVR now rate controlled
#Asthma/COPD without exacerbation
#BMI 64, sleep apnea on CPAP, recent abdominal panniculectomy
- TTE: limited study, no gross vege
- Repeat blood cx's pending
- DC ceftriaxone
- Start cefazolin 2g IV q8h.
- Continue doxycycline (d3) for now
- Trend wbc
[2025-08-31] MEDS: CALCIUM GLUCONATE 10% INJECTION 130 MG IV (15:13)
[2025-08-31] MEDS: ANCEF 10 IV ×2 (15:14→22:20)
--- NOTE | 2025-08-31 15:38 | CM ---
F/U: Patient had some breathing issues, will be trying CPAP instead of the other, not quite ready. Lisha from [facility] called for an update. PLAN: Return to [facility] when ready.
--- NOTE | 2025-08-31 16:12 | W.PN.HOSP.TC ---
Today's Communication/Plan
-
transfer to floor
ID consult
Assessment / Plan
Assessment / Plan
65M w/morbid obesity, AYLIN on CPAP and A-Fib p/w SOB.
1. Acute Hypoxemic Respiratory Insufficiency 2/2 LLL Pneumonia
Strep/Legionella negative, COVID/flu negative
Blood cultures MSSA/Staph epidermidis
Repeat blood cultures pending
Continue empiric IV antibiotic
consulted ID for recs
pulmonary consulted appreciate recs
CT chest reviewed ARNOLD opacities represent pneumonia associated with likely reactive mediastinal lymph nodes
Supportive care including nebs, mucolytics, etc.
2. Chronic HFpEF
Follow-up repeat echo
Appreciate cardiology consult
LE dopplers negative for DVT but liimted study
3. Paroxysmal Atrial Fibrillation with RVR
- IV Cardizem weaned off
oral cardizem and BB
- Continue Eliquis BID
- Cardiology evaluation as noted above.
- Would avoid further Sudafed doses.
4. Hypokalemia
- Continue potassium supplementation and adjust dosing as needed.
- replete Mg.
5. COPD without Acute Exacerbation
- Continue current inhaled medications / PRN nebs.
- No wheezing appreciated on exam.
6. AYLIN on CPAP
- Patient uses AutoPAP at home / SNF - can use home device if it can be delivered here.
- Nightly CPAP for now at 14cm H2O and titrate for comfort.
7. s/p Panniculectomy
- Stable. Surgical site appears well-healed. No current issues.
8. Morbid Obesity due to excess calories
- BMI > 60.
- Affects all aspects of care.
DVT Prophylaxis: On Eliquis
Code Status: Full
Anticipated Discharge: > 48 hours
Subjective/Interval History
-
Date of Service: August 31, 2025
Patient reports he had a rough night, states he was short of breath, inhalers helped, states he felt worse when the BiPAP was placed on, states he wears an AutoPap at home. I discussed his plan of care with pulmonology
Objective Data
-
Labs:
Laboratory Results
08/31/25 08/31/25
03:53 16:06
WBC 12.9 H
Hgb 10.9 L
Hct 36.1 L
Plt Count 211
Sodium 134 L
Potassium 3.3 L Pending
Chloride 103
Carbon Dioxide 28
BUN 12
Creatinine 0.5 L
Glucose 113 H
Calcium 7.0 L
Vital Signs:
Vital Signs
Temp Pulse Resp BP Pulse Ox
98.2 F 90 18 102/69 95
08/31/25 14:39 08/31/25 15:14 08/31/25 13:26 08/31/25 15:14 08/31/25 14:00
I&O
08/30/25 08/31/25 09/01/25
06:59 06:59 06:59
Intake Total 960 / 960 720 / 720
Output Total 500 / 500 3300 / 3300 1100 / 1100
Balance 460 / 460 -2580 / -2580 -1100 / -1100
Review of Systems
-
All other systems: Reviewed and negative
Physical Exam
-
General: No Apparent Distress, Conversant and Morbidly Obese
HEENT: Anicteric, PERRLA and Other (Wax and erythematous rash with peeling skin noted in and around right ear)
Respiratory: Clear to Auscultation; Negative Wheezes or Rales
Cardiac: S1/S2 and Irregular Rhythm; Negative Murmur
GI: Soft, Nontender, Nondistended and Normal Bowel Sounds
Musculoskeletal: No Edema
Skin: Warm, Dry and Rash (Erythematous peeling rash on face especially forehead and ears)
Neuro: Awake and AO x 3
Psych: Calm
Data Reviewed
-
CT Scan: Report Reviewed by me and Discussed with Physician
Labs: Labs Reviewed by me and Discussed with Patient
[2025-08-31 16:28] LABS: Magnesium 1.6 mg/dl (1.6-2.3); Potassium 4.2 mmol/L (3.5-5.1)
[2025-08-31] MEDS: ADVAIR HFA 115/21 MCG INHALER 2 PUFF INH (19:19)
[2025-08-31] MEDS: DEBROX EAR DROPS 1 DROP RIGHT EAR (20:07)
[2025-08-31] MEDS: SINGULAIR 10 MG PO (20:07)
--- NOTE | 2025-08-31 23:11 | PTCARENOTE ---
Pt being transferred to 2124. Report given to Heather SAENZ. Pt made aware, emotional support given along with education. Assessment care and vitals as charted.
[2025-09-01] VITALS (9 sets, daily range): BP systolic 103–135; BP diastolic 56–96; PULSE 79–98
[2025-09-01 07:19] LABS: Hematocrit 39.8 % (39.0-52.0); Hemoglobin 11.6 g/dL (13.0-18.0); Mean Corp Hgb Conc. 29.1 g/dL (33.0-37.0); Mean Corpuscular Volume 82.6 fL (80.0-94.0); Nucleated Red Blood Cells % 0 % (-); Platelet Count 234 10^3/uL (130-400); Red Cell Dist. Width 18.2 % (11.5-14.5)
[2025-09-01 07:41] LABS: Blood Urea Nitrogen 12 mg/dl (9-20); Calcium 8.4 mg/dl (8.4-10.2); Carbon Dioxide 32 mmol/L (22-30); Chloride 97 mmol/L (98-107); Estimated Creatinine Clearance > 125 ml/min; Glucose 119 mg/dl (70-99); Potassium 4.0 mmol/L (3.5-5.1); Sodium 133 mmol/L (135-145); eGFR > 60.00
[2025-09-01] MEDS: STERILE WATER FOR INJECTION IV (07:55)
[2025-09-01] MEDS: VIBRAMYCIN 100 MG PO ×2 (07:55→19:40)
[2025-09-01] MEDS: ZYRTEC 10 MG PO (07:56)
[2025-09-01] MEDS: PROTONIX 40 MG PO (07:56)
[2025-09-01] MEDS: MAGNESIUM OXIDE 400 MG PO ×2 (07:56→19:40)
[2025-09-01] MEDS: TOPROL XL 50 MG PO ×2 (07:56→19:40)
[2025-09-01] MEDS: ELIQUIS 5 MG PO ×2 (07:56→19:41)
[2025-09-01] MEDS: LOW STRENGTH ASPIRIN 81 MG PO (07:56)
[2025-09-01] MEDS: LASIX 40 MG IV ×2 (07:57→16:02)
[2025-09-01] MEDS: MUCINEX 1200 MG PO ×2 (07:57→19:40)
[2025-09-01] MEDS: LIPITOR 20 MG PO (07:57)
[2025-09-01] MEDS: KCL 40 MEQ PO ×2 (07:57→19:41)
[2025-09-01] MEDS: CARDIZEM CD 180 MG PO (07:57)
[2025-09-01] MEDS: DEBROX EAR DROPS 1 DROP RIGHT EAR (07:59)
[2025-09-01] MEDS: HYDROPHOR 1 APPLIC TOPICAL (07:59)
[2025-09-01] MEDS: DESENEX/MITRAZOL/ZEASORB 1 APPLIC TOPICAL ×2 (07:59→19:43)
[2025-09-01] MEDS: TRIAMCINOLONE ACETONIDE 0.1% TOPICAL (08:00)
[2025-09-01] MEDS: ADVAIR HFA 115/21 MCG INHALER 2 PUFF INH ×2 (08:01→19:52)
--- NOTE | 2025-09-01 09:20 | W.PN.PUL.V3 ---
Today's Communication / Plan
-
Wean oxygen
Continue antibiotics
Diuresis
CPAP at night
Assessment
-
65-year-old male morbidly obese bed-bound male former tobacco smoker with a past medical history of chronic HFpEF, COPD, asthma, paroxysmal A-fib on Eliquis, AYLIN on CPAP, GERD, KELLY, DDD, and chronic sinusitis who presents with shortness of breath.
He says that his symptoms started 1 night prior to arrival. He denies any phlegm production or sick contacts. He has been using Sudafed and Afrin to help decongest his nasal cavity + chest but it has not been helping. He has been compliant with
the CPAP at [facility]. In the ER he was afebrile with pulse rate 117, respiratory rate 18, BP 138/101 and was saturating 95% on 6 L/min nasal cannula. Labs are pertinent for leukocytosis to 13.9, Hb 12.1, absolute eosinophil count: 300, potassium
level 3.2, proBNP 782 and COVID-19 antigen negative. Blood cultures collected, and flu swab was found to be negative. Initial CXR showed a large patchy and confluent increased attenuation throughout the left hemothorax. Differential includes
pneumonia, pleural fluid and atelectasis. In the ER he was given aztreonam, vancomycin, 10 mg Cardizem and potassium chloride, and he was admitted to telemetry. Patient's heart rate did become more controlled however on the morning of 08/29,
patient's heart rate increased again into the 120�130s. He was started on Toprol-XL, also given torsemide, and then required Cardizem drip. Patient then upgraded to IMU, and pulmonary service consulted for additional management/recommendations.
Chronic conditions FAMILY NURSE:: morbid obesity, chronic HFpEF, paroxysmal A-fib on Eliquis, history of COPD on Breo, AYLIN on CPAP, GERD, history of asthma, iron deficiency anemia, DDD, chronic sinusitis, former tobacco smoker
Impression:
#Left lower lobe pneumonia
#Acute respiratory failure with hypoxia due to above
#Rapid A-fib requiring Cardizem drip
#Bedbound status
#History of COPD (no PFTs or spirometry to review to confirm this)
#Bilateral otitis externa with right ear fullness/clogged
#Severe morbid obesity
#Chronic HFpEF
#AYLIN on CPAP
#GERD
#History of asthma
#Chronic sinusitis
#Former tobacco smoker (quit approximately 15 years ago)
Plan:
Respiratory status still somewhat tenuous-did not tolerate BiPAP-tolerating CPAP better
Supplemental oxygen as needed-97% saturation
Nebulizers continue
Mucolytic's
Patient on Breo as an outpatient-Symbicort while hospitalized
Aspiration precautions
BiPAP at night-not tolerating and wants CPAP-has CPAP at home for obstructive sleep apnea-details unclear-sleep specialist was in [facility]-he will attempt to obtain information-Will attempt to obtain CPAP from [facility]
Follow chest x-ray
CT chest 08/30/2025-consolidation and mild adjacent opacification left upper lobe and mildly prominent mediastinal lymph nodes, scattered pulmonary nodules measuring up to 8 mm in the right lower lobe
Cultures reviewed
Blood cultures pending
Urine Legionella and streptococcal pneumoniae antigen negative
MRSA screen negative
MRSA influenza negative
Initial blood culture 08/29/2025-Staph aureus methicillin sensitive and Staph epidermidis
Sputum culture-unable to produce
Empiric antibiotics for left lower lobe pneumonia
Infectious disease following-correspondence reviewed-continue cefazolin for 14 days through 09/12/2025
Follow leukocytosis-improving
Atrial fibrillation rate control
Cardiology evaluation ongoing- Correspondence reviewed
Cardizem drip converted to oral
Continue metoprolol
Echocardiogram 08/30/2025-very technically limited, normal left ventricular size, mild concentric left ventricular hypertrophy, left ventricular systolic function appears to be normal with
Diuresis as tolerated - 5.5 L / 48-hour
Monitor renal function, electrolytes, intake/output, lower extremity edema and weight
Replace electrolytes as needed
Follow hemoglobin-stable at 11.6
Transfuse if needed
Monitor blood sugar
Insulin supplementation as needed
DVT prophylaxis-on Eliquis
Outpatient pulmonary/sleep disorders [id number] in [facility] for 'rehab'
Data:
CXR 08/29/2025:
Limited by supine positioning and portable technique.
Stable examination. Persistent left lung opacity/consolidation especially in the mid lung zone, likely pneumonia. There is subtle blunting of lateral costophrenic angle, suggesting at least an element of pleural fluid.
Subjective Data
-
Date of Service:
Date of Service: September 01, 2025
Chief Complaint: Pulmonary Follow Up and Dyspnea Follow Up
Subjective:
Tolerated CPAP better than BiPAP, complains of some shortness of breath, no chest pain
Review of Systems
General: Other (Per HPI)
Objective Data
Data Reviewed
Vital Signs / I&O:
Vital Signs
Temp Pulse Resp BP Pulse Ox
97.9 F 77 18 135/96 99
09/01/25 07:20 09/01/25 08:03 09/01/25 08:03 09/01/25 07:56 09/01/25 07:20
Intake and Output
08/31/25 09/01/25 09/02/25
06:59 06:59 06:59
Intake Total 720 / 720
Output Total 3300 / 3300 2950 / 2950
Balance -2580 / -2580 -2950 / -2950
SaO2: 99
Nasal Cannula flow liters per minute: 4
Physical Exam
General: Respiratory Distress and Comfortable
HEENT: Normocephalic, Anicteric and Moist Mucous Membranes
Cardiovascular: Regular Rhythm
Respiratory: Wheeze (n), Crackles (n), Rhonchi (n), Non-Labored Respirations, Accessory Resp Muscle Use (n) and Stridor (n)
GI: Soft, Non Distended, Non Tender and Other (Morbid obesity)
Neurology: Awake, Alert and No Motor Deficits
Skin: Warm, Good Color, Cyanosis (n), Jaundice and Rash (n)
Labs/Micro/Reports
Lab Data
09/01/25 06:29
09/01/25 06:29
Microbiology
08/29/25 01:56 Blood/Venous Blood Culture - Preliminary
S aureus-Methicillin Sensitive
Staphylococcus epidermidis
08/29/25 01:56 Blood/Venous Gram Stain - Final
08/29/25 01:56 Blood/Venous Blood Culture - Preliminary
No Growth in 72 hours- Final report to follow
08/30/25 14:37 Blood/Venous Blood Culture - Preliminary
No Growth in 24 hours- Final report to follow
08/30/25 16:41 Blood/Venous Blood Culture - Preliminary
No Growth in 24 hours- Final report to follow
08/29/25 13:17 Nose MRSA Screen - Final
No Methicillin Resistant Staphylococcus aureus isolated.
08/30/25 11:52 Urine Legionella Urinary Antigen - Final
Negative for Legionella pneumophila Serogroup 1 antigen.
A negative result does not rule out the possiblity of
Legionella infection due to other serogroups or species of
Legionella. Clinical correlation is recommended.
08/30/25 11:52 Urine Streptococcus pneumoniae Antigen (M - Final
Negative for Streptococcus pneumoniae antigen.
A negative result does not exclude infection with
Streptococcus pneumoniae. Clinical correlation is
recommended.
08/29/25 13:17 Nasal Swab Influenza Types A & B (JAMES) - Final
Negative for Influenza A & B, NAAT
Negative results must be combined with clinical observations
and patient history.
Nucleic Acid Amplification test (NAAT)performed on the
[employer] platform.
[2025-09-01] MEDS: TYLENOL 650 MG PO ×2 (09:35→15:43)
[2025-09-01] MEDS: LIDOCAINE 4% PATCH 1 PATCH TOPICAL (09:36)
[2025-09-01] MEDS: ANCEF 10 IV ×3 (09:36→22:37)
[2025-09-01] MEDS: BenGay-Like 1 APPLIC TOPICAL (09:40)
--- NOTE | 2025-09-01 09:45 | W.PN.ID1 ---
Date of Service
Date of Service: September 01, 2025
Today's Communication
Continue cefazolin 2g IV q8h x 14 days through 09/12/25.
Assessment / Plan
# L lung pneumonia
# Uncomplicated MSSA bacteremia 1 of 2 sets, most like lung source
# Staphylococcal epidermidis bacteremia 1 of 2 sets =contaminant
# Leukocytosis improved
#A-fib with RVR now rate controlled
#Asthma/COPD without exacerbation
#BMI 64, sleep apnea on CPAP, recent abdominal panniculectomy
- TTE: limited study, no gross vege
- Repeat blood cx's x2 negative to date
- Continue doxycycline (d4 of 7) for now
- Continue cefazolin 2g IV q8h x 14 days through 09/12/25.
- Trend wbc
- Place midline tomorrow.
- Infusion sheet submitted to telephonic nurse case manager.
Additional Past Medical History:
Asthma/COPD
Atrial fibrillation on Eliquis
HFpEF
Urine incontinence
Obstructive sleep apnea on CPAP
Class III obesity BMI 64
Chronic sinusitis
Abdominal lymphedematous panniculectomy (25 lbs) at [facility] (07/2025)
Hernia repair
Bed-bound since 'dropped from a jamar-lift at a facility'
Chief Complaint
-: Pneumonia and Bacteremia
Subjective / Review of Systems
SOB and cough better.
Vital Signs / Physical Exam
Vital Signs
Vital Signs
Temp Pulse Resp BP Pulse Ox
97.9 F 77 18 135/96 99
09/01/25 07:20 09/01/25 08:03 09/01/25 08:03 09/01/25 07:56 09/01/25 09:20
Physical Exam
Constitutional: No Acute Distress and Obese
Eyes: Sclera Anicteric
Cardiovascular: Irregular Rate and S1/S2
Pulmonary: Clear
Gastrointestinal: Soft, Non Tender, Non Distended and Normal Bowel Sounds
Extremities: Edema
Neurological: AO x 3
Objective Data
Lab Data
Lab Results
09/01/25 06:29
09/01/25 06:29
Estimated Creat Clear > 125 ml/min 09/01/25 06:29
Lactic Acid 1.8 mmol/L (0.7-2.0) 08/29/25 06:23
Total Bilirubin 0.4 mg/dl (0.2-1.3) 08/29/25 06:23
AST 17 U/L (17-59) 08/29/25 06:23
ALT 16 U/L (0-50) 08/29/25 06:23
Alkaline Phosphatase 134 U/L (38-126) H 08/29/25 06:23
Most recent labs reviewed.
Micro Results:
08/29/25 01:56 Blood Culture - Preliminary
Blood/Venous S aureus-Methicillin Sensitive
Staphylococcus epidermidis
Gram Stain - Final
08/29/25 01:56 Blood Culture - Preliminary
Blood/Venous No Growth in 72 hours- Final report to follow
08/30/25 14:37 Blood Culture - Preliminary
Blood/Venous No Growth in 24 hours- Final report to follow
08/30/25 16:41 Blood Culture - Preliminary
Blood/Venous No Growth in 24 hours- Final report to follow
08/29/25 13:17 MRSA Screen - Final
Nose No Methicillin Resistant Staphylococcus aureus isolated.
08/30/25 11:52 Legionella Urinary Antigen - Final
Urine Negative for Legionella pneumophila Serogroup 1 antigen.
A negative result does not rule out the possiblity of
Legionella infection due to other serogroups or species of
Legionella. Clinical correlation is recommended.
Streptococcus pneumoniae Antigen (M - Final
Negative for Streptococcus pneumoniae antigen.
A negative result does not exclude infection with
Streptococcus pneumoniae. Clinical correlation is
recommended.
08/29/25 13:17 Influenza Types A & B (JAMES) - Final
Nasal Swab Negative for Influenza A & B, NAAT
Negative results must be combined with clinical observations
and patient history.
Nucleic Acid Amplification test (NAAT)performed on the
[employer] platform.
08/30/[address]: There is a consolidation with mild adjacent opacities within the left upper lobe which extends slightly into the superior left lower lobe which likely represents pneumonia. There is associated mildly prominent mediastinal lymph
nodes which are likely reactive. There are scattered pulmonary nodules measuring up to 7.8 mm in the right lower lobe. Recommend follow-up CT chest to ensure stability per Fleischner guidelines. Mild fusiform dilation of the ascending thoracic
aorta measuring 4.0 cm.
08/29/25 CXR: Persistent left lung opacity/consolidation especially in the mid lung zone, likely pneumonia.
08/28/25 CXR: There is a large amount of patchy and confluent increased attenuation throughout the left hemithorax. This could represent posterior layering of pleural fluid and/or pulmonary parenchymal consolidation, such as pneumonia.
--- NOTE | 2025-09-01 11:34 | CM ---
CM following re: discharge planning.
Reviewed pt's chart, met with pt and spoke to [facility] liaison to update on discharge plan progress.
Per , continue cefazolin 2g IV q8h x 14 days through 09/12/25. A script for cefazolin faxed to [facility] [phone]
Per chart review, pt is bed bound at [facility].
CM spoke to [facility] liaison and she confirmed that pt was there just one week and in order for pt to return back to [facility] an auth required. Pt's insurance [employer], [place]: [id number].
D/C plan: return back to [facility] with an auth.
--- NOTE | 2025-09-01 13:01 | W.PN.HOSP.TC ---
Today's Communication/Plan
-
Final antibiotic plan IV cefazolin EOT 09/12, needs midline
Patient diuresing well with IV Lasix
Back to SNF on discharge
Assessment / Plan
Assessment / Plan
65M w/morbid obesity, AYLIN on CPAP and A-Fib p/w SOB.
1. Acute Hypoxemic Respiratory Insufficiency 2/2 LLL Pneumonia
Strep/Legionella negative, COVID/flu negative
Blood cultures MSSA/Staph epidermidis
Repeat blood cultures NGTD
Continue empiric IV antibiotic�cephalexin EOT 09/12 for total 14-days, will need midline. continue p.o. Doxy for total 7 days
consulted ID appreciated recs
pulmonary consulted appreciate recs
CT chest reviewed ARNOLD opacities represent pneumonia associated with likely reactive mediastinal lymph nodes
Supportive care including nebs, mucolytics, etc.
2. Chronic HFpEF
Echo was technically limited due to body habitus
Attempt to get outside records from [facility]
Appreciate cardiology consult
LE dopplers negative for DVT but limited study
Continue diuresis with IV Lasix twice daily
3. Paroxysmal Atrial Fibrillation with RVR
- IV Cardizem weaned off
oral cardizem and BB. HR better controlled
- Continue Eliquis BID
- Cardiology evaluation as noted above.
- Would avoid further Sudafed doses.
4. Hypokalemia
- Continue potassium supplementation and adjust dosing as needed.
- replete Mg.
5. COPD without Acute Exacerbation
- Continue current inhaled medications / PRN nebs.
- No wheezing appreciated on exam.
6. AYLIN on CPAP
- Patient uses AutoPAP at home / SNF - can use home device if it can be delivered here.
- Nightly CPAP for now at 14cm H2O and titrate for comfort.
7. s/p Panniculectomy
- Stable. Surgical site appears well-healed. No current issues.
8. Morbid Obesity due to excess calories
- BMI > 60.
- Affects all aspects of care.
PT/OT recommends SNF
DVT Prophylaxis: On Eliquis
Code Status: Full
Anticipated Discharge: 24 - 48 hours
Subjective/Interval History
-
Date of Service: September 01, 2025
Patient states his breathing still feels the same, tight and heavy
Objective Data
-
Labs:
Laboratory Results
09/01/25
06:29
WBC 11.4 H
Hgb 11.6 L
Hct 39.8
Plt Count 234
Sodium 133 L
Potassium 4.0
Chloride 97 L
Carbon Dioxide 32 H
BUN 12
Creatinine 0.6 L
Glucose 119 H
Calcium 8.4
Vital Signs:
Vital Signs
Temp Pulse Resp BP Pulse Ox
98.2 F 96 18 103/65 97
09/01/25 11:35 09/01/25 11:35 09/01/25 11:35 09/01/25 11:35 09/01/25 11:35
I&O
08/31/25 09/01/25 09/02/25
06:59 06:59 06:59
Intake Total 720 / 720
Output Total 3300 / 3300 2950 / 2950
Balance -2580 / -2580 -2950 / -2950
Review of Systems
-
All other systems: Reviewed and negative
Physical Exam
-
General: No Apparent Distress, Conversant and Morbidly Obese
HEENT: Anicteric, PERRLA and Other (Wax and erythematous rash with peeling skin noted in and around right ear)
Respiratory: Clear to Auscultation and Decreased Breath Sounds; Negative Wheezes or Rales
Cardiac: S1/S2 and Irregular Rhythm; Negative Murmur
GI: Soft, Nontender, Nondistended and Normal Bowel Sounds
Musculoskeletal: No Edema
Skin: Warm, Dry and Rash (Erythematous peeling rash on face especially forehead and ears)
Neuro: Awake and AO x 3
Psych: Calm
Data Reviewed
-
CT Scan: Report Reviewed by me and Discussed with Physician
Labs: Labs Reviewed by me and Discussed with Patient
--- NOTE | 2025-09-01 15:23 | W.PN.CARDCBS ---
Today's Communication / Plan
-
Cont IV lasix
Following Cr and daily weights
Impression / Plan
-
Physician Allergist Immunologist: Follows with cardiology in [facility]
Impression:
Acute hypoxic respiratory insufficiency, multifactorial
Left lower lobe pneumonia
Bacteremia
Acute on chronic heart failure with preserved ejection fraction
Rapid atrial fibrillation with history of paroxysmal atrial fibrillation
Inappropriate Eliquis anticoagulation on admission
Morbid obesity with BMI greater than 60
Obstructive sleep apnea on CPAP
Iron deficiency anemia
Plan:
Remains in AFib with improved rate control
Continue Cardizem CD 180 mg daily and metoprolol succinate 50 mg twice a day
Continue Eliquis 5 mg BID for prophylaxis.
TSH and troponin within normal limits
Limited TDS 2D echocardiogram Aug 30 with preserved LV function within the limitations of the study.
Continue IV Lasix diuresis 40 mg twice daily.
Is and Os negative over the last 24 hrs
Outpatient torsemide on hold
pBNP may be less accurate in the setting of super morbid obesity
Monitor renal function and replete lytes as needed. Keep K greater than 4, mag greater than 2
Requested records from patient's outpatient cardiology team at [facility]
Left lower lobe pneumonia/bacteremia with preliminary positive blood culture
Cont empiric antibiotics
Pulm following
Morbid obesity with sleep apnea and underlying COPD
Cont CPAP therapy which is not being utilized at his residential facility.
Progress Note - Physician Allergist Immunologist
Subjective
Date of Service: September 01, 2025
NAOE. Resting comfortably in bed today. No cardiac complaints. Tells me he is responding well to IV diuretics with good UOP.
Objective
Labs:
09/01/25 06:29
09/01/25 06:29
Labs
Hgb 11.6 g/dL (13.0-18.0) L 09/01/25 06:29
Hct 39.8 % (39.0-52.0) 09/01/25 06:29
Plt Count 234 10^3/uL (130-400) 09/01/25 06:29
Sodium 133 mmol/L (135-145) L 09/01/25 06:29
Potassium 4.0 mmol/L (3.5-5.1) 09/01/25 06:29
BUN 12 mg/dl (9-20) 09/01/25 06:29
Creatinine 0.6 mg/dL (0.7-1.3) L 09/01/25 06:29
Glucose 119 mg/dl (70-99) H 09/01/25 06:29
Troponins
08/29/25 08/29/25
17:48 23:30
Troponin I 0.020 D Cancelled
Vital Signs and I&O:
Vital Signs
Temp Pulse Resp BP Pulse Ox
98.2 F 96 18 103/65 97
09/01/25 11:35 09/01/25 11:35 09/01/25 11:35 09/01/25 11:35 09/01/25 11:35
Vital Signs
Temp Pulse Resp BP Pulse Ox
98.2 F 96 18 103/65 97
09/01/25 11:35 09/01/25 11:35 09/01/25 11:35 09/01/25 11:35 09/01/25 11:35
Intake & Output
08/30/25 08/31/25 09/01/25 09/02/25
06:59 06:59 06:59 06:59
Intake Total 960 / 960 720 / 720
Output Total 500 / 500 3300 / 3300 2950 / 2950
Balance 460 / 460 -2580 / -2580 -2950 / -2950
Physical Exam
Physical Exam
Gen: NAD, AAOx3
HEENT: NC/AT, sclera anicteric
CV: irregular, NL s1/s2, no M/R/G
Lungs: CTAB
Abd: obese
Ext: Nonpitting LE edema
Skin: Warm, dry
Neuro: Non-focal
[2025-09-01] MEDS: REMOVE LIDOCAINE PATCH 1 PATCH REMOVE (19:42)
[2025-09-01] MEDS: DEBROX EAR DROPS 5 DROP RIGHT EAR (19:44)
[2025-09-01] MEDS: OCEAN, SALINE MIST 2 SPRAYS NASAL (19:47)
[2025-09-01] MEDS: SINGULAIR 10 MG PO (21:22)
[2025-09-02] VITALS (8 sets, daily range): BP systolic 90–133; BP diastolic 55–74; PULSE 78–87
[2025-09-02] MEDS: TRIAMCINOLONE ACETONIDE 0.1% TOPICAL ×3 (00:57→20:10)
[2025-09-02 06:26] LABS: Hematocrit 41.1 % (39.0-52.0); Hemoglobin 12.3 g/dL (13.0-18.0); Mean Corp Hgb Conc. 29.9 g/dL (33.0-37.0); Mean Corpuscular Volume 80.7 fL (80.0-94.0); Nucleated Red Blood Cells % 0 % (-); Platelet Count 234 10^3/uL (130-400); Red Cell Dist. Width 18.4 % (11.5-14.5)
[2025-09-02 06:38] LABS: Blood Urea Nitrogen 14 mg/dl (9-20); Calcium 8.5 mg/dl (8.4-10.2); Chloride 98 mmol/L (98-107); Estimated Creatinine Clearance > 125 ml/min; Glucose 121 mg/dl (70-99); Potassium 4.4 mmol/L (3.5-5.1); Sodium 137 mmol/L (135-145); eGFR > 60.00
[2025-09-02 06:47] LABS: Carbon Dioxide 32 mmol/L (22-30)
[2025-09-02] MEDS: ADVAIR HFA 115/21 MCG INHALER INH (07:24)
[2025-09-02] MEDS: ANCEF 10 IV ×3 (08:32→22:08)
[2025-09-02] MEDS: STERILE WATER FOR INJECTION IV (08:32)
[2025-09-02] MEDS: LIDOCAINE 4% PATCH 1 PATCH TOPICAL (08:33)
[2025-09-02] MEDS: CARDIZEM CD 180 MG PO (08:42)
[2025-09-02] MEDS: LOW STRENGTH ASPIRIN 81 MG PO (08:42)
[2025-09-02] MEDS: KCL 40 MEQ PO ×2 (08:42→19:59)
[2025-09-02] MEDS: LASIX 40 MG IV (08:42)
[2025-09-02] MEDS: TOPROL XL 50 MG PO ×2 (08:42→19:57)
[2025-09-02] MEDS: MUCINEX 1200 MG PO ×2 (08:42→19:59)
[2025-09-02] MEDS: ZYRTEC 10 MG PO (08:42)
--- NOTE | 2025-09-02 08:42 | W.PN.ID1 ---
Date of Service
Date of Service: September 02, 2025
Today's Communication
Ordered midline.
Continue cefazolin 2g IV q8h x 14 days through 09/12/25.
Assessment / Plan
# L lung pneumonia
# Uncomplicated MSSA bacteremia 1 of 2 sets, most like lung source
# Staphylococcal epidermidis bacteremia 1 of 2 sets =contaminant
# Leukocytosis improved
#A-fib with RVR now rate controlled
#Asthma/COPD without exacerbation
#BMI 64, sleep apnea on CPAP, recent abdominal panniculectomy
- TTE: limited study, no gross vege
- Repeat blood cx's x2 negative to date
- Continue doxycycline (d5 of 7) for now
- Continue cefazolin 2g IV q8h x 14 days through 09/12/25.
- Trend wbc
- Ordered midline
- Infusion sheet submitted to rehabilitation case coordinator 09/01.
Additional Past Medical History:
Asthma/COPD
Atrial fibrillation on Eliquis
HFpEF
Urine incontinence
Obstructive sleep apnea on CPAP
Class III obesity BMI 64
Chronic sinusitis
Abdominal lymphedematous panniculectomy (25 lbs) at [facility] (07/2025)
Hernia repair
Bed-bound since 'dropped from a jamar-lift at a facility'
Chief Complaint
-: Pneumonia and Bacteremia
Subjective / Review of Systems
Does not want to go back to [facility].
Respiratory status stable.
Vital Signs / Physical Exam
Vital Signs
Vital Signs
Temp Pulse Resp BP Pulse Ox
97.6 F 83 18 115/67 96
09/02/25 08:21 09/02/25 08:21 09/02/25 08:21 09/02/25 08:21 09/02/25 08:21
Physical Exam
Constitutional: No Acute Distress and Obese
Eyes: Sclera Anicteric
Cardiovascular: Irregular Rate and S1/S2
Pulmonary: Clear and Other (on CPAP)
Gastrointestinal: Soft, Non Tender and Non Distended
Extremities: Edema
Neurological: AO x 3
Objective Data
Lab Data
Lab Results
09/02/25 06:04
09/02/25 06:04
Estimated Creat Clear > 125 ml/min 09/02/25 06:04
Lactic Acid 1.8 mmol/L (0.7-2.0) 08/29/25 06:23
Total Bilirubin 0.4 mg/dl (0.2-1.3) 08/29/25 06:23
AST 17 U/L (17-59) 08/29/25 06:23
ALT 16 U/L (0-50) 08/29/25 06:23
Alkaline Phosphatase 134 U/L (38-126) H 08/29/25 06:23
Most recent labs reviewed.
Micro Results:
08/29/25 01:56 Blood Culture - Preliminary
Blood/Venous No Growth in 4 days- Final report to follow
08/30/25 14:37 Blood Culture - Preliminary
Blood/Venous No Growth in 48 hours- Final report to follow
08/30/25 16:41 Blood Culture - Preliminary
Blood/Venous No Growth in 48 hours- Final report to follow
08/29/25 01:56 Blood Culture - Preliminary
Blood/Venous S aureus-Methicillin Sensitive
Staphylococcus epidermidis
Gram Stain - Final
08/29/25 13:17 MRSA Screen - Final
Nose No Methicillin Resistant Staphylococcus aureus isolated.
08/30/25 11:52 Legionella Urinary Antigen - Final
Urine Negative for Legionella pneumophila Serogroup 1 antigen.
A negative result does not rule out the possiblity of
Legionella infection due to other serogroups or species of
Legionella. Clinical correlation is recommended.
Streptococcus pneumoniae Antigen (M - Final
Negative for Streptococcus pneumoniae antigen.
A negative result does not exclude infection with
Streptococcus pneumoniae. Clinical correlation is
recommended.
08/29/25 13:17 Influenza Types A & B (JAMES) - Final
Nasal Swab Negative for Influenza A & B, NAAT
Negative results must be combined with clinical observations
and patient history.
Nucleic Acid Amplification test (NAAT)performed on the
[employer] platform.
08/30/[address]: There is a consolidation with mild adjacent opacities within the left upper lobe which extends slightly into the superior left lower lobe which likely represents pneumonia. There is associated mildly prominent mediastinal lymph
nodes which are likely reactive. There are scattered pulmonary nodules measuring up to 7.8 mm in the right lower lobe. Recommend follow-up CT chest to ensure stability per Fleischner guidelines. Mild fusiform dilation of the ascending thoracic
aorta measuring 4.0 cm.
08/29/25 CXR: Persistent left lung opacity/consolidation especially in the mid lung zone, likely pneumonia.
08/28/25 CXR: There is a large amount of patchy and confluent increased attenuation throughout the left hemithorax. This could represent posterior layering of pleural fluid and/or pulmonary parenchymal consolidation, such as pneumonia.
[2025-09-02] MEDS: VIBRAMYCIN 100 MG PO ×2 (08:43→19:59)
[2025-09-02] MEDS: ELIQUIS 5 MG PO ×2 (08:43→19:59)
[2025-09-02] MEDS: PROTONIX 40 MG PO (08:43)
[2025-09-02] MEDS: MAGNESIUM OXIDE 400 MG PO ×2 (08:43→19:59)
[2025-09-02] MEDS: LIPITOR 20 MG PO (08:46)
[2025-09-02] MEDS: OCEAN, SALINE MIST 2 SPRAYS NASAL (08:47)
[2025-09-02] MEDS: DESENEX/MITRAZOL/ZEASORB 1 APPLIC TOPICAL ×2 (08:50→20:02)
[2025-09-02] MEDS: DEBROX EAR DROPS 5 DROP RIGHT EAR (08:50)
[2025-09-02] MEDS: HYDROPHOR 1 APPLIC TOPICAL (08:51)
--- NOTE | 2025-09-02 08:55 | W.PN.PUL.V3 ---
Today's Communication / Plan
-
Antibiotics
Diuresis
Wean FiO2
Increase activity
CPAP at night
Assessment
-
65-year-old male morbidly obese bed-bound male former tobacco smoker with a past medical history of chronic HFpEF, COPD, asthma, paroxysmal A-fib on Eliquis, AYLIN on CPAP, GERD, KELLY, DDD, and chronic sinusitis who presents with shortness of breath.
He says that his symptoms started 1 night prior to arrival. He denies any phlegm production or sick contacts. He has been using Sudafed and Afrin to help decongest his nasal cavity + chest but it has not been helping. He has been compliant with
the CPAP at [facility]. In the ER he was afebrile with pulse rate 117, respiratory rate 18, BP 138/101 and was saturating 95% on 6 L/min nasal cannula. Labs are pertinent for leukocytosis to 13.9, Hb 12.1, absolute eosinophil count: 300, potassium
level 3.2, proBNP 782 and COVID-19 antigen negative. Blood cultures collected, and flu swab was found to be negative. Initial CXR showed a large patchy and confluent increased attenuation throughout the left hemothorax. Differential includes
pneumonia, pleural fluid and atelectasis. In the ER he was given aztreonam, vancomycin, 10 mg Cardizem and potassium chloride, and he was admitted to telemetry. Patient's heart rate did become more controlled however on the morning of 08/29,
patient's heart rate increased again into the 120�130s. He was started on Toprol-XL, also given torsemide, and then required Cardizem drip. Patient then upgraded to IMU, and pulmonary service consulted for additional management/recommendations.
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
Impression:
#Left lower lobe pneumonia
#Acute respiratory failure with hypoxia due to above
#Rapid A-fib requiring Cardizem drip
#Bedbound status
#History of COPD (no PFTs or spirometry to review to confirm this)
#Bilateral otitis externa with right ear fullness/clogged
#Severe morbid obesity
#Chronic HFpEF
#AYLIN on CPAP
#GERD
#History of asthma
#Chronic sinusitis
#Former tobacco smoker (quit approximately 15 years ago)
Plan:
Respiratory status slowly improving
Supplemental oxygen as needed-97% saturation
Nebulizers continue
Mucolytic's
Patient on Breo as an outpatient-Symbicort while hospitalized
Aspiration precautions
BiPAP at night-not tolerating and wants CPAP-has CPAP at home for obstructive sleep apnea--tolerated CPAP
Follow occasional chest x-ray
CT chest 08/30/2025-consolidation and mild adjacent opacification left upper lobe and mildly prominent mediastinal lymph nodes, scattered pulmonary nodules measuring up to 8 mm in the right lower lobe
Cultures reviewed
Blood cultures repeat negative
Urine Legionella and streptococcal pneumoniae antigen negative
MRSA screen negative
MRSA influenza negative
Initial blood culture 08/29/2025-Staph aureus methicillin sensitive and Staph epidermidis
Sputum culture-unable to produce
Empiric antibiotics for left lower lobe pneumonia
Infectious disease following-correspondence reviewed-continue cefazolin for 14 days through 09/12/2025
Follow leukocytosis-currently 11.8
Atrial fibrillation rate control
Cardiology evaluation ongoing- Correspondence reviewed
Cardizem drip converted to oral
Continue metoprolol
Echocardiogram 08/30/2025-very technically limited, normal left ventricular size, mild concentric left ventricular hypertrophy, left ventricular systolic function appears to be normal with
Diuresis as tolerated - 6.5 L /72 hours
Monitor renal function, electrolytes, intake/output, lower extremity edema and weight
Replace electrolytes as needed
Follow hemoglobin-stable at 12.3
Transfuse if needed
Monitor blood sugar
Insulin supplementation as needed
DVT prophylaxis-on Eliquis
Outpatient pulmonary/sleep disorders [id number] in [facility] for 'rehab'
Data:
CXR 08/29/2025:
Limited by supine positioning and portable technique.
Stable examination. Persistent left lung opacity/consolidation especially in the mid lung zone, likely pneumonia. There is subtle blunting of lateral costophrenic angle, suggesting at least an element of pleural fluid.
Subjective Data
-
Date of Service:
Date of Service: September 02, 2025
Chief Complaint: Pulmonary Follow Up and Dyspnea Follow Up
Subjective:
Sleeping with CPAP, no respiratory distress
Review of Systems
General: Other (Per HPI )
Objective Data
Data Reviewed
Vital Signs / I&O:
Vital Signs
Temp Pulse Resp BP Pulse Ox
97.6 F 83 18 115/67 96
09/02/25 08:21 09/02/25 08:42 09/02/25 08:21 09/02/25 08:42 09/02/25 08:21
Intake and Output
09/01/25 09/02/25 09/03/25
06:59 06:59 06:59
Intake Total 1380 / 1380
Output Total 2950 / 2950 2450 / 2450
Balance -2950 / -2950 -1070 / -1070
SaO2: 96
Nasal Cannula flow liters per minute: 4
Physical Exam
General: Respiratory Distress and Comfortable
HEENT: Normocephalic, Anicteric and Moist Mucous Membranes
Cardiovascular: Regular Rhythm
Respiratory: Wheeze (n), Crackles (n), Rhonchi (n), Non-Labored Respirations, Accessory Resp Muscle Use (n) and Stridor (n)
GI: Soft, Non Distended, Non Tender and Other (Morbid obesity)
Neurology: Awake, Alert and No Motor Deficits
Skin: Warm, Good Color, Cyanosis (n), Jaundice and Rash (n)
Labs/Micro/Reports
Lab Data
09/02/25 06:04
09/02/25 06:04
Microbiology
08/29/25 01:56 Blood/Venous Blood Culture - Preliminary
No Growth in 4 days- Final report to follow
08/30/25 14:37 Blood/Venous Blood Culture - Preliminary
No Growth in 48 hours- Final report to follow
08/30/25 16:41 Blood/Venous Blood Culture - Preliminary
No Growth in 48 hours- Final report to follow
08/29/25 01:56 Blood/Venous Blood Culture - Preliminary
S aureus-Methicillin Sensitive
Staphylococcus epidermidis
08/29/25 01:56 Blood/Venous Gram Stain - Final
08/29/25 13:17 Nose MRSA Screen - Final
No Methicillin Resistant Staphylococcus aureus isolated.
08/30/25 11:52 Urine Legionella Urinary Antigen - Final
Negative for Legionella pneumophila Serogroup 1 antigen.
A negative result does not rule out the possiblity of
Legionella infection due to other serogroups or species of
Legionella. Clinical correlation is recommended.
08/30/25 11:52 Urine Streptococcus pneumoniae Antigen (M - Final
Negative for Streptococcus pneumoniae antigen.
A negative result does not exclude infection with
Streptococcus pneumoniae. Clinical correlation is
recommended.
[2025-09-02] MEDS: TYLENOL 650 MG PO ×3 (08:58→20:11)
[2025-09-02] MEDS: ADVAIR HFA 115/21 MCG INHALER 2 PUFF INH ×2 (08:58→19:26)
--- NOTE | 2025-09-02 08:58 | W.PN.CARDCBS ---
Addendum entered and electronically signed by Lola Zapata MD 09/02/25 13:37:
I saw and examined the patient.
The Guard Captain's note was reviewed and I agree with the note.
Comment: General: Morbidly obese
Heart: Distant heart sounds
Lungs: Coarse breath sound
Extremities: Trace to +1
Neuro: Grossly nonfocal, awake,
He is admitted with acute hypoxic respiratory insufficiency in the setting of heart failure with preserved ejection fraction, morbid obesity, bacteremia and pneumonia.
He has been diuresing well with IV Lasix. Antibiotics per primary service.
He also has been noted to have patient with increased rates.
Plan at this time:
Heart failure with preserved ejection fraction and volume overload
- He is diuresing well. Continue.
- Replete electrolytes as needed
- Follow input/output
- Will switch to oral diuretics when BUN/creatinine start to rise somewhat. Exam has not been very helpful given body habitus. proBNP is not very helpful in addition which is not unusual in patients with obesity
Atrial fibrillation
- Continue rate control. Seems to be improving. Continue diltiazem and metoprolol.
- Continue oral anticoagulation
- Given body habitus and comorbidities at this time rate control and anticoagulation is likely the best option.
- CPAP being resumed which should also be helpful
Original Note:
Today's Communication / Plan
-
continue IV lasix
consider candidacy for AAD therapy
continue eliquis
Impression / Plan
-
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
Impression:
Acute hypoxic respiratory insufficiency, multifactorial
Left lower lobe pneumonia
Bacteremia
Acute on chronic heart failure with preserved ejection fraction
Rapid atrial fibrillation with history of paroxysmal atrial fibrillation
Inappropriate Eliquis anticoagulation on admission
Morbid obesity with BMI greater than 60
Obstructive sleep apnea on CPAP
Iron deficiency anemia
ECHO 08/30/25: TDS despite lumason, LV function appears to be normal, mild LVH
Plan:
-diuresing for component of acute HFpEF. patient reports good response to IV lasix 40mg BID, continue. Cr stable. was on torsemide 40mg daily prior to admission.
-he reports he feels he started going downhill since he was diagnosed with afib.
-rate controlled on review of tele. continue cardizem cd 180mg daily and toprol 50mg BID.
-appears was taking eliquis 5mg HS prior to admission? continue 5mg BID
-he has inquired about getting out of afib. we discussed option of AAD therapy. suspect CV alone would not be successful given unknown chronicity of afib and comorbidities
-echo as above, TDS however suspected normal LV function
-unclear if would be good candidate for SGLT2 inhibitor given comorbidities
-Requested records from patient's outpatient cardiology team at [facility]
-remains on abx for LLL PNA. blood cultures negative
-continue CPAP for AYLIN. reportedly not being utilized at his nursing home facility.
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
Subjective
Date of Service: September 02, 2025
reports good response to IV lasix. reports feeling like his heart is off - sometimes beating too fast other times too slow
Objective
Labs:
09/02/25 06:04
09/02/25 06:04
Labs
Hgb 12.3 g/dL (13.0-18.0) L 09/02/25 06:04
Hct 41.1 % (39.0-52.0) 09/02/25 06:04
Plt Count 234 10^3/uL (130-400) 09/02/25 06:04
Sodium 137 mmol/L (135-145) 09/02/25 06:04
Potassium 4.4 mmol/L (3.5-5.1) 09/02/25 06:04
BUN 14 mg/dl (9-20) 09/02/25 06:04
Creatinine 0.6 mg/dL (0.7-1.3) L 09/02/25 06:04
Glucose 121 mg/dl (70-99) H 09/02/25 06:04
Vital Signs and I&O:
Vital Signs
Temp Pulse Resp BP Pulse Ox
97.6 F 83 18 115/67 96
09/02/25 08:21 09/02/25 08:42 09/02/25 08:21 09/02/25 08:42 09/02/25 08:55
Vital Signs
Temp Pulse Resp BP Pulse Ox
97.6 F 83 18 115/67 96
09/02/25 08:21 09/02/25 08:42 09/02/25 08:21 09/02/25 08:42 09/02/25 08:55
Intake & Output
08/31/25 09/01/25 09/02/25 09/03/25
07:59 07:59 07:59 07:59
Intake Total 720 / 720 1380 / 1380
Output Total 3300 / 3300 2950 / 2950 2450 / 2450
Balance -2580 / -2580 -2950 / -2950 -1070 / -1070
Physical Exam
Physical Exam
GEN: No distress, awake, alert, oriented x3. morbid obesity
HEENT: supple, anicteric, mmm, eomi
LUNGS: CTA B/L, no wheezes
CV: Irreg, S1/S2, no murmur
ABD: soft, BS+, NT/ND
EXT: No cyanosis, clubbing. trace edema of B/L LE
NEURO: Gross non-focal
SKIN: Warm, pink, dry. No rash. patches of dry skin on face
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
--- NOTE | 2025-09-02 13:16 | W.PN.HOSP.TC ---
Addendum entered and electronically signed by Nunu Canales MD 09/02/25 14:19:
For CDI: Suspected acute on chronic CHF
Original Note:
Today's Communication/Plan
-
Final antibiotic plan IV cefazolin EOT 09/12, needs midline
Patient diuresing well with IV Lasix
Complaining of nasal congestion more than anything
Back to SNF on discharge
Assessment / Plan
Assessment / Plan
65M w/morbid obesity, AYLIN on CPAP and A-Fib p/w SOB.
1. Acute Hypoxemic Respiratory Insufficiency 2/2 LLL Pneumonia
Strep/Legionella negative, COVID/flu negative
Blood cultures MSSA/Staph epidermidis
Repeat blood cultures NGTD
Continue empiric IV antibiotic�cephalexin EOT 09/12 for total 14-days, will need midline. continue p.o. Doxy for total 7 days
consulted ID appreciated recs
pulmonary consulted appreciate recs
CT chest reviewed ARNOLD opacities represent pneumonia associated with likely reactive mediastinal lymph nodes
Supportive care including nebs, mucolytics, etc. patient complaining of a lot of nasal congestion, question if he has some kind of sinusitis that he would need to see ENT for.
2. Chronic HFpEF
Echo was technically limited due to body habitus
Attempt to get outside records from [facility]
Appreciate cardiology consult
LE dopplers negative for DVT but limited study
Continue diuresis with IV Lasix twice daily
3. Paroxysmal Atrial Fibrillation with RVR
- IV Cardizem weaned off
oral cardizem and BB. HR better controlled
- Continue Eliquis BID
- Cardiology evaluation as noted above.
- Would avoid further Sudafed doses.
4. Hypokalemia
- Continue potassium supplementation and adjust dosing as needed.
- replete Mg.
5. COPD without Acute Exacerbation
- Continue current inhaled medications / PRN nebs.
- No wheezing appreciated on exam.
6. AYLIN on CPAP
- Patient uses AutoPAP at home / SNF - can use home device if it can be delivered here.
- Nightly CPAP for now at 14cm H2O and titrate for comfort.
7. s/p Panniculectomy
- Stable. Surgical site appears well-healed. No current issues.
8. Morbid Obesity due to excess calories
- BMI > 60.
- Affects all aspects of care.
PT/OT recommends SNF
DVT Prophylaxis: On Eliquis
Code Status: Full
Anticipated Discharge: 24 - 48 hours
Subjective/Interval History
-
Date of Service: September 02, 2025
Notes nasal congestion, asking for Afrin
Objective Data
-
Labs:
Laboratory Results
09/02/25
06:04
WBC 11.8 H
Hgb 12.3 L
Hct 41.1
Plt Count 234
Sodium 137
Potassium 4.4
Chloride 98
Carbon Dioxide 32 H
BUN 14
Creatinine 0.6 L
Glucose 121 H
Calcium 8.5
Vital Signs:
Vital Signs
Temp Pulse Resp BP Pulse Ox
97.8 F 96 18 90/58 94
09/02/25 11:15 09/02/25 11:15 09/02/25 11:15 09/02/25 11:15 09/02/25 11:15
I&O
09/01/25 09/02/25 09/03/25
06:59 06:59 06:59
Intake Total 1380 / 1380
Output Total 2950 / 2950 2450 / 2450
Balance -2950 / -2950 -1070 / -1070
Review of Systems
-
All other systems: Reviewed and negative
Physical Exam
-
General: No Apparent Distress, Conversant and Morbidly Obese
HEENT: Anicteric, PERRLA and Other (Wax and erythematous rash with peeling skin noted in and around right ear)
Respiratory: Clear to Auscultation and Decreased Breath Sounds; Negative Wheezes or Rales
Cardiac: S1/S2 and Irregular Rhythm; Negative Murmur
GI: Soft, Nontender, Nondistended and Normal Bowel Sounds
Musculoskeletal: No Edema
Skin: Warm, Dry and Rash (Erythematous peeling rash on face especially forehead and ears)
Neuro: Awake and AO x 3
Psych: Calm
Data Reviewed
-
CT Scan: Report Reviewed by me and Discussed with Physician
Labs: Labs Reviewed by me and Discussed with Patient
[2025-09-02] MEDS: LASIX IV (16:39)
[2025-09-02] MEDS: AFRIN NASAL SPRAY 1 SPRAYS NASAL (19:58)
[2025-09-02] MEDS: REMOVE LIDOCAINE PATCH 1 PATCH REMOVE (20:00)
[2025-09-02] MEDS: DEBROX EAR DROPS RIGHT EAR (20:04)
[2025-09-02] MEDS: BenGay-Like 1 APPLIC TOPICAL (20:31)
[2025-09-02] MEDS: SINGULAIR 10 MG PO (22:03)
[2025-09-03 03:10] VITALS: BP 112/78
[2025-09-03 04:58] LABS: Hematocrit 39.2 % (39.0-52.0); Hemoglobin 11.9 g/dL (13.0-18.0); Mean Corp Hgb Conc. 30.4 g/dL (33.0-37.0); Mean Corpuscular Volume 81.5 fL (80.0-94.0); Nucleated Red Blood Cells % 0 % (-); Platelet Count 244 10^3/uL (130-400); Red Cell Dist. Width 18.0 % (11.5-14.5)
[2025-09-03 05:49] LABS: Blood Urea Nitrogen 16 mg/dl (9-20); Calcium 8.7 mg/dl (8.4-10.2); Carbon Dioxide 32 mmol/L (22-30); Chloride 99 mmol/L (98-107); Estimated Creatinine Clearance > 125 ml/min; Glucose 120 mg/dl (70-99); Potassium 4.8 mmol/L (3.5-5.1); Sodium 134 mmol/L (135-145); eGFR > 60.00
[2025-09-03] MEDS: STERILE WATER FOR INJECTION IV (06:06)
[2025-09-03] MEDS: ANCEF 10 IV ×3 (06:30→23:41)
[2025-09-03 07:00] VITALS: BP 121/71
[2025-09-03] MEDS: ADVAIR HFA 115/21 MCG INHALER 2 PUFF INH ×2 (07:36→19:30)
--- NOTE | 2025-09-03 09:17 | W.PN.PUL.V3 ---
Today's Communication / Plan
-
Wean oxygen
Increase activity
Diuresis
Antibiotics till 09/12/2025
CPAP at night
Pulmonary will sign off
Assessment
-
65-year-old male morbidly obese bed-bound male former tobacco smoker with a past medical history of chronic HFpEF, COPD, asthma, paroxysmal A-fib on Eliquis, AYLIN on CPAP, GERD, KELLY, DDD, and chronic sinusitis who presents with shortness of breath.
He says that his symptoms started 1 night prior to arrival. He denies any phlegm production or sick contacts. He has been using Sudafed and Afrin to help decongest his nasal cavity + chest but it has not been helping. He has been compliant with
the CPAP at [facility]. In the ER he was afebrile with pulse rate 117, respiratory rate 18, BP 138/101 and was saturating 95% on 6 L/min nasal cannula. Labs are pertinent for leukocytosis to 13.9, Hb 12.1, absolute eosinophil count: 300, potassium
level 3.2, proBNP 782 and COVID-19 antigen negative. Blood cultures collected, and flu swab was found to be negative. Initial CXR showed a large patchy and confluent increased attenuation throughout the left hemothorax. Differential includes
pneumonia, pleural fluid and atelectasis. In the ER he was given aztreonam, vancomycin, 10 mg Cardizem and potassium chloride, and he was admitted to telemetry. Patient's heart rate did become more controlled however on the morning of 08/29,
patient's heart rate increased again into the 120�130s. He was started on Toprol-XL, also given torsemide, and then required Cardizem drip. Patient then upgraded to IMU, and pulmonary service consulted for additional management/recommendations.
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
Impression:
#Left lower lobe pneumonia
#Acute respiratory failure with hypoxia due to above
#Rapid A-fib requiring Cardizem drip
#Bedbound status
#History of COPD (no PFTs or spirometry to review to confirm this)
#Bilateral otitis externa with right ear fullness/clogged
#Severe morbid obesity
#Chronic HFpEF
#AYLIN on CPAP
#GERD
#History of asthma
#Chronic sinusitis
#Former tobacco smoker (quit approximately 15 years ago)
Plan:
Respiratory status with antibiotics and diuresis
Supplemental oxygen as needed-97% saturation-currently on room air
Nebulizers continue
Mucolytic's
Patient on Breo as an outpatient-Symbicort while hospitalized
Aspiration precautions
BiPAP at night-not tolerating and wants CPAP-has CPAP at home for obstructive sleep apnea--tolerated CPAP
Follow occasional chest x-ray
CT chest 08/30/2025-consolidation and mild adjacent opacification left upper lobe and mildly prominent mediastinal lymph nodes, scattered pulmonary nodules measuring up to 8 mm in the right lower lobe
Cultures reviewed
Blood cultures repeat negative
Urine Legionella and streptococcal pneumoniae antigen negative
MRSA screen negative
MRSA influenza negative
Initial blood culture 08/29/2025-Staph aureus methicillin sensitive and Staph epidermidis
Sputum culture-unable to produce
Empiric antibiotics for left lower lobe pneumonia
Infectious disease following-correspondence reviewed-continue cefazolin for 14 days through 09/12/2025
Follow leukocytosis-currently 11.8
Atrial fibrillation rate control
Cardiology evaluation ongoing- Correspondence reviewed
Cardizem drip converted to oral
Continue metoprolol
Echocardiogram 08/30/2025-very technically limited, normal left ventricular size, mild concentric left ventricular hypertrophy, left ventricular systolic function appears to be normal with
Diuresis as tolerated -7.5 L / 4 days
Monitor renal function, electrolytes, intake/output, lower extremity edema and weight
Replace electrolytes as needed
Follow hemoglobin-stable at 12.3
Transfuse if needed
Monitor blood sugar
Insulin supplementation as needed
DVT prophylaxis-on Eliquis
Patient currently stable from a pulmonary perspective-pulmonary will sign off-please call with questions
Outpatient pulmonary/sleep disorders [id number] in [facility] for 'rehab'
Data:
CXR 08/29/2025:
Limited by supine positioning and portable technique.
Stable examination. Persistent left lung opacity/consolidation especially in the mid lung zone, likely pneumonia. There is subtle blunting of lateral costophrenic angle, suggesting at least an element of pleural fluid.
Subjective Data
-
Date of Service:
Date of Service: September 03, 2025
Chief Complaint: Pulmonary Follow Up and Dyspnea Follow Up
Subjective:
Resting comfortably on CPAP on his left side, no respiratory distress, no new complaints
Review of Systems
General: Other (Per HPI)
Objective Data
Data Reviewed
Vital Signs / I&O:
Vital Signs
Temp Pulse Resp BP Pulse Ox
98.1 F 75 18 112/78 98
09/03/25 03:10 09/03/25 03:10 09/03/25 03:10 09/03/25 03:10 09/03/25 03:10
Intake and Output
09/02/25 09/03/25 09/04/25
06:59 06:59 06:59
Intake Total 1380 / 1380 2420 / 2420
Output Total 2450 / 2450 1550 / 1550
Balance -1070 / -1070 870 / 870
SaO2: 98
Nasal Cannula flow liters per minute: 4
Physical Exam
General: Respiratory Distress and Comfortable
HEENT: Normocephalic, Anicteric and Moist Mucous Membranes
Cardiovascular: Regular Rhythm
Respiratory: Wheeze (n), Crackles (n), Rhonchi (n), Non-Labored Respirations, Accessory Resp Muscle Use (n) and Stridor (n)
GI: Soft, Non Distended, Non Tender and Other (Morbid obesity)
Neurology: Awake, Alert and No Motor Deficits
Skin: Warm, Good Color, Cyanosis (n), Jaundice and Rash (n)
Labs/Micro/Reports
Lab Data
09/03/25 04:41
09/03/25 04:41
Microbiology
08/29/25 01:56 Blood/Venous Blood Culture - Final
No Growth - Final Report
08/30/25 14:37 Blood/Venous Blood Culture - Preliminary
No Growth in 72 hours- Final report to follow
08/30/25 16:41 Blood/Venous Blood Culture - Preliminary
No Growth in 72 hours- Final report to follow
08/29/25 01:56 Blood/Venous Blood Culture - Preliminary
S aureus-Methicillin Sensitive
Staphylococcus epidermidis
08/29/25 01:56 Blood/Venous Gram Stain - Final
--- NOTE | 2025-09-03 09:28 | W.PN.CARDCBS ---
Today's Communication / Plan
-
Would continue daily weights. Add Zaroxolyn to Lasix 40 mg IV BID.
Continue rate control strategy for A-fib. Continue Toprol and diltiazem. Ventricular rates are controlled.
Would recommend aggressive diuresis and then consideration for rhythm control after he is adequately diuresed.
Continue CPAP for sleep apnea
Continue weight management
Impression / Plan
-
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
Impression:
Acute hypoxic respiratory insufficiency, multifactorial
Left lower lobe pneumonia
Bacteremia
Acute on chronic heart failure with preserved ejection fraction
Rapid atrial fibrillation with history of paroxysmal atrial fibrillation
Inappropriate Eliquis anticoagulation on admission
Morbid obesity with BMI greater than 60
Obstructive sleep apnea on CPAP
Iron deficiency anemia
ECHO 08/30/25: TDS despite lumason, LV function appears to be normal, mild LVH
Plan:
-Continue diuresis with IV Lasix. Add metolazone 2.5 mg daily to augment. Creatinine overall stable. He does have some mild hyponatremia. Continue to follow.
-rate controlled on review of tele. continue cardizem cd 180mg daily and toprol 50mg BID.
-he has inquired about getting out of afib. we discussed option of AAD therapy. suspect CV alone would not be successful given unknown chronicity of afib and comorbidities
-I would suggest him discussing this with his outpatient scanning tech after he is aggressively diuresed. Other option would be to start amiodarone and cardiovert prior to discharge.
-echo as above, TDS however suspected normal LV function
- Would hold off on SLG 2 inhibitor due to risk of infection for now. Would continue discussions as outpatient.
-Exam is very difficult.
-remains on abx for LLL PNA. blood cultures negative
-continue CPAP for AYLIN. reportedly not being utilized at his [facility] facility.
Progress Note - Performance Test Architect
Subjective
Date of Service: September 03, 2025
Breathing is slowly improving. He is diuresing some.
Objective
Labs:
09/03/25 04:41
09/03/25 04:41
Labs
Hgb 11.9 g/dL (13.0-18.0) L 09/03/25 04:41
Hct 39.2 % (39.0-52.0) 09/03/25 04:41
Plt Count 244 10^3/uL (130-400) 09/03/25 04:41
Sodium 134 mmol/L (135-145) L 09/03/25 04:41
Potassium 4.8 mmol/L (3.5-5.1) 09/03/25 04:41
BUN 16 mg/dl (9-20) 09/03/25 04:41
Creatinine 0.6 mg/dL (0.7-1.3) L 09/03/25 04:41
Glucose 120 mg/dl (70-99) H 09/03/25 04:41
Vital Signs and I&O:
Vital Signs
Temp Pulse Resp BP Pulse Ox
98 F 87 16 121/71 98
09/03/25 07:00 09/03/25 07:00 09/03/25 07:00 09/03/25 07:00 09/03/25 09:17
Vital Signs
Temp Pulse Resp BP Pulse Ox
98 F 87 16 121/71 98
09/03/25 07:00 09/03/25 07:00 09/03/25 07:00 09/03/25 07:00 09/03/25 09:17
Intake & Output
09/01/25 09/02/25 09/03/25 09/04/25
06:59 06:59 06:59 06:59
Intake Total 1380 / 1380 2420 / 2420
Output Total 2950 / 2950 2450 / 2450 1550 / 1550
Balance -2950 / -2950 -1070 / -1070 870 / 870
Physical Exam
Physical Exam
GEN: No distress, awake, Ox3
HEENT: supple, anicteric, mmm
LUNGS: CTA, no wheezes/rales
CV: Irreg, S1/S2, 1/6 syst LSB, no gallop
ABD: soft, BS+, NT/ND
EXT: +++ edema
NEURO: Gross non-focal
SKIN: No rash
[2025-09-03] MEDS: LIDOCAINE 4% PATCH 1 PATCH TOPICAL (10:24)
[2025-09-03] MEDS: TOPROL XL 50 MG PO ×2 (10:24→20:18)
[2025-09-03] MEDS: MUCINEX 1200 MG PO ×2 (10:24→20:18)
[2025-09-03] MEDS: VIBRAMYCIN 100 MG PO ×2 (10:25→20:18)
[2025-09-03] MEDS: ZYRTEC 10 MG PO (10:25)
[2025-09-03] MEDS: LOW STRENGTH ASPIRIN 81 MG PO (10:25)
[2025-09-03] MEDS: CARDIZEM CD 180 MG PO (10:25)
[2025-09-03] MEDS: PROTONIX 40 MG PO (10:25)
[2025-09-03] MEDS: MAGNESIUM OXIDE 400 MG PO ×2 (10:25→20:18)
[2025-09-03] MEDS: LASIX 40 MG IV ×2 (10:25→16:34)
[2025-09-03] MEDS: LIPITOR 20 MG PO (10:26)
[2025-09-03] MEDS: KCL 40 MEQ PO ×2 (10:28→20:17)
[2025-09-03] MEDS: ELIQUIS 5 MG PO ×2 (10:28→20:19)
[2025-09-03] MEDS: DESENEX/MITRAZOL/ZEASORB 1 APPLIC TOPICAL ×2 (10:29→20:20)
[2025-09-03] MEDS: TYLENOL 650 MG PO ×3 (10:31→20:21)
[2025-09-03] MEDS: HYDROPHOR 1 APPLIC TOPICAL (10:38)
[2025-09-03] MEDS: TRIAMCINOLONE ACETONIDE 0.1% TOPICAL ×2 (10:39→20:26)
[2025-09-03] MEDS: DEBROX EAR DROPS 5 DROP RIGHT EAR (10:39)
[2025-09-03 11:00] VITALS: BP 114/68
--- NOTE | 2025-09-03 11:50 | W.PN.HOSP.TC ---
Today's Communication/Plan
-
Continue diuresis, metolazone added. Noted cardiology plan for possible antiarrhythmics versus CVA after aggressively diuresed, inpatient versus outpatient.
Continue antibiotics
On room air
CM for discharge planning to a different SNF as per patient's request
Assessment / Plan
Assessment / Plan
65M w/morbid obesity, AYLIN on CPAP and A-Fib p/w SOB.
LLL Pneumonia
Acute Hypoxemic Respiratory Insufficiency -resolved, no longer on O2
Strep/Legionella negative, COVID/flu negative
Blood cultures MSSA/Staph epidermidis
Repeat blood cultures NGTD
Continue empiric IV antibiotic�cephalexin EOT 09/12 for total 14-days, via midline. p.o. Doxy for total 7 days
consulted ID appreciated recs
pulmonary consulted appreciate recs, discussed care plan with them, now signed off
CT chest reviewed ARNOLD opacities represent pneumonia associated with likely reactive mediastinal lymph nodes
Supportive care including nebs, mucolytics, etc. patient complaining of a lot of nasal congestion, question if he has some kind of sinusitis that he would need to see ENT for.
Acute on chronic HFpEF
Echo was technically limited due to body habitus
Attempt to get outside records from [facility]
Appreciate cardiology consult
Hold off SGLT2i due to infection
LE dopplers negative for DVT but limited study
Continue diuresis with IV Lasix twice daily and cardiology has also added metolazone
Paroxysmal Atrial Fibrillation
with RVR which has resolved
- IV Cardizem weaned off
oral cardizem and BB. HR better controlled
- Continue Eliquis BID
- Cardiology evaluation as noted above. Possible antiarrhythmics versus CV after he is adequately diuresed
- Would avoid further Sudafed doses.
LLE erythema
Erythema/edema/blistering
Concern for cellulitis versus DVT versus edema
Already on antibiotics, already on Eliquis, also had Doppler study that was limited but did not show DVT. Discussed with ID
Supportive care
hypokalemia
- Continue potassium supplementation and adjust dosing as needed.
- replete Mg.
COPD without Acute Exacerbation
- Continue current inhaled medications / PRN nebs.
- No wheezing appreciated on exam.
AYLIN on CPAP
- Nightly AutoPap, home machine
s/p Panniculectomy
- Stable. Surgical site appears well-healed. No current issues.
Morbid Obesity
due to excess calories
- BMI > 60.
- Affects all aspects of care.
PT/OT recommends SNF
DVT Prophylaxis: On Eliquis
Code Status: Full
Anticipated Discharge: 24 - 48 hours
Subjective/Interval History
-
Date of Service: September 03, 2025
Patient feeling about the same, notes he has been urinating a lot
Objective Data
-
Labs:
Laboratory Results
09/03/25
04:41
WBC 10.7
Hgb 11.9 L
Hct 39.2
Plt Count 244
Sodium 134 L
Potassium 4.8
Chloride 99
Carbon Dioxide 32 H
BUN 16
Creatinine 0.6 L
Glucose 120 H
Calcium 8.7
Vital Signs:
Vital Signs
Temp Pulse Resp BP Pulse Ox
98 F 87 16 121/71 98
09/03/25 07:00 09/03/25 10:24 09/03/25 07:00 09/03/25 10:24 09/03/25 09:17
I&O
09/02/25 09/03/25 09/04/25
06:59 06:59 06:59
Intake Total 1380 / 1380 2420 / 2420
Output Total 2450 / 2450 1550 / 1550
Balance -1070 / -1070 870 / 870
Review of Systems
-
All other systems: Reviewed and negative
Physical Exam
-
General: No Apparent Distress, Conversant and Morbidly Obese
HEENT: Anicteric, PERRLA and Other (Wax and erythematous rash with peeling skin noted in and around right ear)
Respiratory: Clear to Auscultation and Decreased Breath Sounds; Negative Wheezes or Rales
Cardiac: S1/S2 and Irregular Rhythm; Negative Murmur
GI: Soft, Nontender, Nondistended and Normal Bowel Sounds
Musculoskeletal: Edema, Left Lower Extrem
Skin: Warm, Dry and Rash (Erythematous peeling rash on face especially forehead and ears. on LLE there is erythema and edema and blistering)
Neuro: Awake and AO x 3
Psych: Calm
Data Reviewed
-
CT Scan: Report Reviewed by me and Discussed with Physician
Labs: Labs Reviewed by me, Discussed with Physician and Discussed with Patient
--- NOTE | 2025-09-03 13:25 | W.PN.ID1 ---
Date of Service
Date of Service: September 03, 2025
Today's Communication
See below.
Assessment / Plan
# L lung pneumonia
# Uncomplicated MSSA bacteremia 1 of 2 sets, most like lung source
# Staphylococcal epidermidis bacteremia 1 of 2 sets =contaminant
# Leukocytosis resolved
#A-fib with RVR now rate controlled
#Asthma/COPD without exacerbation
#BMI 64, sleep apnea on CPAP, recent abdominal panniculectomy
- TTE: limited study, no gross vege
- Repeat blood cx's x2 negative to date
- Continue doxycycline (d6 of 7)
- Continue cefazolin 2g IV q8h x 14 days through 09/12/25.
- Trend wbc
- midline in place
- Infusion sheet submitted to case repairer 09/01.
# LLE dermatitis vs panniculitis
- Apply topical hydrocortisone 2.5% cream bid x 10 days.
Additional Past Medical History:
Asthma/COPD
Atrial fibrillation on Eliquis
HFpEF
Urine incontinence
Obstructive sleep apnea on CPAP
Class III obesity BMI 64
Chronic sinusitis
Abdominal lymphedematous panniculectomy (25 lbs) at [facility] (07/2025)
Hernia repair
Bed-bound since 'dropped from a jamar-lift at a facility'
Chief Complaint
-: Pneumonia and Bacteremia
Subjective / Review of Systems
SOB/cough improving.
No itchingg.
Vital Signs / Physical Exam
Vital Signs
Vital Signs
Temp Pulse Resp BP Pulse Ox
97.5 F 93 16 114/68 93
09/03/25 11:00 09/03/25 11:00 09/03/25 11:00 09/03/25 11:00 09/03/25 11:00
Physical Exam
Constitutional: No Acute Distress, Comfortable and Obese
Eyes: No Conjunctival Hemorrhage and Sclera Anicteric
Cardiovascular: Irregular Rate and S1/S2
Pulmonary: Clear
Gastrointestinal: Soft, Non Tender and Non Distended
Genito-Urinary: Negative CVA Tenderness
Extremities: Edema and Other (LLE: grijalva pale pink erythema with firm skin colored papules; left calf, hemorrhagic blister with pale pink erythema; no warmth)
Skin: Other (excoriations upper chest)
Neurological: AO x 3
Lines: Other (LUE midline)
Objective Data
Lab Data
Lab Results
09/03/25 04:41
09/03/25 04:41
Estimated Creat Clear > 125 ml/min 09/03/25 04:41
Lactic Acid 1.8 mmol/L (0.7-2.0) 08/29/25 06:23
Total Bilirubin 0.4 mg/dl (0.2-1.3) 08/29/25 06:23
AST 17 U/L (17-59) 08/29/25 06:23
ALT 16 U/L (0-50) 08/29/25 06:23
Alkaline Phosphatase 134 U/L (38-126) H 08/29/25 06:23
Most recent labs reviewed.
Micro Results:
08/29/25 01:56 Blood Culture - Final
Blood/Venous No Growth - Final Report
08/30/25 14:37 Blood Culture - Preliminary
Blood/Venous No Growth in 72 hours- Final report to follow
08/30/25 16:41 Blood Culture - Preliminary
Blood/Venous No Growth in 72 hours- Final report to follow
08/29/25 01:56 Blood Culture - Preliminary
Blood/Venous S aureus-Methicillin Sensitive
Staphylococcus epidermidis
Gram Stain - Final
08/29/25 13:17 MRSA Screen - Final
Nose No Methicillin Resistant Staphylococcus aureus isolated.
08/30/25 11:52 Legionella Urinary Antigen - Final
Urine Negative for Legionella pneumophila Serogroup 1 antigen.
A negative result does not rule out the possiblity of
Legionella infection due to other serogroups or species of
Legionella. Clinical correlation is recommended.
Streptococcus pneumoniae Antigen (M - Final
Negative for Streptococcus pneumoniae antigen.
A negative result does not exclude infection with
Streptococcus pneumoniae. Clinical correlation is
recommended.
08/29/25 13:17 Influenza Types A & B (JAMES) - Final
Nasal Swab Negative for Influenza A & B, NAAT
Negative results must be combined with clinical observations
and patient history.
Nucleic Acid Amplification test (NAAT)performed on the
[employer] platform.
08/30/[address]: There is a consolidation with mild adjacent opacities within the left upper lobe which extends slightly into the superior left lower lobe which likely represents pneumonia. There is associated mildly prominent mediastinal lymph
nodes which are likely reactive. There are scattered pulmonary nodules measuring up to 7.8 mm in the right lower lobe. Recommend follow-up CT chest to ensure stability per Fleischner guidelines. Mild fusiform dilation of the ascending thoracic
aorta measuring 4.0 cm.
08/29/25 CXR: Persistent left lung opacity/consolidation especially in the mid lung zone, likely pneumonia.
08/28/25 CXR: There is a large amount of patchy and confluent increased attenuation throughout the left hemithorax. This could represent posterior layering of pleural fluid and/or pulmonary parenchymal consolidation, such as pneumonia.
--- NOTE | 2025-09-03 14:41 | CM ---
Addendum entered by Kusum Alvarado 09/03/25 15:15:
[facility] can only handle a maximum weight of 450lbs.
No response yet from [facility]
Original Note:
Met pt at bedside who is asking to have SNF placement nearer to his home. The following facilities have accepted this pt.
[facility] - with Admissions Rafaela Chahal [phone]
[facility] at [facility] - extended hold time. Unable to leave a message
[facility] - Spoke with Sondra, she is looking into this. They are about 1 1/2 hrs away
This patient will need and auth and IV ABX for 14 days and a jamar lift. Pt weighs approx 500lbs
Plan: DC to SNF when bed available and auth obtained
[2025-09-03 15:00] VITALS: BP 102/56
--- NOTE | 2025-09-03 15:02 | PN.CDI ---
CDI
- -
CDI:
Physician Documentation Request
Admit Date: 08/29/25 03:27
Dear Doctor,
Patient admitted for pneumonia.
ER Physician Documentation: 'presenting with shortness of breath...Respiratory:...Poor air exchange'
09/03 Pulmonary PN: 'Left lower lobe pneumonia #Acute respiratory failure with hypoxia due to above'
09/03 Hospitalist PN: 'LLL Pneumonia Acute Hypoxemic Respiratory Insufficiency -resolved, no longer on O2'
Selected Entries
08/28/25
23:09 08/29/25
07:45 09/01/25
10:53
Nasal Cannula flow liters per minute 6 3 4
Clarify which of the following accurately represents the patient's respiratory status:
Acute hypoxic respiratory failure
Hypoxia
Other
Additional information for Respiratory Failure:
Recognized criteria for Respiratory Failure (Source: Trini Mendiloa. 2018September 02.
Documentation tips: Acute Respiratory Failure, The Hospitalist.)
ABGs: (1 or more) Symptoms Please indicate type if known
1. p)2 <60 or RA SPO2 <91% on RA 1. Tachypnea, SOB, dyspnea Hypoxic
2. pCO2 >45 and pH <7.35 2. Use of accessory muscles Hypercapnic
3. pO2 decrease of pCO2 increase by 3. Pallor or cyanosis Hypoxic and Hypercapnic
10 mmHg from baseline if known 4. Anxiety or restlessness Unable to determine
4. P/F Ratio (pO2/FiO2)nless than 300 5. Unable to speak in full sentences
Use of terms such as suspected, likely, concern for, or probable (associated with a specific diagnosis that is being evaluated, monitored, or treated as if it exists) are acceptable and can be coded in the inpatient setting, when documented at the
time of discharge.
Thank you,
Henny Grullon RN, BSN
CDI Specialist
Available via [place] text
Please use your independent medical judgment in providing your response.
[2025-09-03] MEDS: HYDROCORTISONE 2.5% CREAM 1 APPLIC TOPICAL ×2 (15:03→20:21)
[2025-09-03] MEDS: ZAROXOLYN 2.5 MG PO (16:34)
[2025-09-03 19:15] VITALS: BP 102/67
[2025-09-03] MEDS: REMOVE LIDOCAINE PATCH 1 PATCH REMOVE (20:19)
[2025-09-03] MEDS: SINGULAIR 10 MG PO (22:33)
[2025-09-03 23:18] VITALS: BP 109/72
[2025-09-03] MEDS: BenGay-Like 1 APPLIC TOPICAL (23:43)
[2025-09-04 03:33] VITALS: BP 111/79
[2025-09-04 04:46] LABS: Hematocrit 41.4 % (39.0-52.0); Hemoglobin 12.6 g/dL (13.0-18.0); Mean Corp Hgb Conc. 30.4 g/dL (33.0-37.0); Mean Corpuscular Volume 81.2 fL (80.0-94.0); Nucleated Red Blood Cells % 0 % (-); Platelet Count 254 10^3/uL (130-400); Red Cell Dist. Width 18.2 % (11.5-14.5)
[2025-09-04 05:17] LABS: Blood Urea Nitrogen 17 mg/dl (9-20); Calcium 8.7 mg/dl (8.4-10.2); Carbon Dioxide 32 mmol/L (22-30); Chloride 96 mmol/L (98-107); Estimated Creatinine Clearance > 125 ml/min; Glucose 123 mg/dl (70-99); Potassium 4.2 mmol/L (3.5-5.1); Sodium 134 mmol/L (135-145); eGFR > 60.00
[2025-09-04] MEDS: ANCEF 10 IV ×3 (06:30→22:38)
[2025-09-04 07:15] VITALS: BP 124/73
[2025-09-04] MEDS: ADVAIR HFA 115/21 MCG INHALER 2 PUFF INH ×2 (07:25→19:25)
[2025-09-04] MEDS: VENTOLIN NEBULES INH (07:25)
--- NOTE | 2025-09-04 07:46 | W.PN.HOSP.TC ---
Today's Communication/Plan
-
Continue diuresis, metolazone added. Noted cardiology plan for possible antiarrhythmics versus CVA after aggressively diuresed, inpatient versus outpatient.
Continue antibiotics
On room air, resume nebs as needed
CM for discharge planning to a different SNF as per patient's request
Assessment / Plan
Assessment / Plan
65M w/morbid obesity, AYLIN on CPAP and A-Fib p/w SOB.
LLL Pneumonia
Acute Hypoxemic Respiratory Insufficiency -resolved, no longer on O2
Strep/Legionella negative, COVID/flu negative
Blood cultures +MSSA/Staph epidermidis
Repeat blood cultures NGTD
Continue empiric IV antibiotic�cephalexin EOT 09/12 for total 14-days, via midline. p.o. Doxy for total 7 days
consulted ID appreciated recs
pulmonary consulted appreciate recs, discussed care plan with them, now signed off
CT chest reviewed ARNOLD opacities represent pneumonia associated with likely reactive mediastinal lymph nodes
Supportive care including nebs�resume, mucolytics, etc. patient complaining of a lot of nasal congestion, question if he has some kind of sinusitis that he would need to see ENT for.
Leukocytosis noted 09/04, WB 13, afebrile, continue to trend, already on antibiotics
Acute on chronic HFpEF
Echo was technically limited due to body habitus
outside records from [facility]
Appreciate cardiology consult
Hold off SGLT2i due to infection
LE dopplers negative for DVT but limited study
Continue diuresis with IV Lasix twice daily and cardiology has also added metolazone
Paroxysmal Atrial Fibrillation
with RVR which has resolved
- IV Cardizem weaned off
oral cardizem and BB. HR better controlled
- Continue Eliquis BID
- Cardiology evaluation as noted above. Possible antiarrhythmics versus CV after he is adequately diuresed
- Would avoid further Sudafed doses.
LLE dermatitis
Erythema/edema/blistering
Concern for cellulitis versus DVT versus edema versus dermatitis
Already on antibiotics, already on Eliquis, also had Doppler study that was limited but did not show DVT. Discussed with ID, they have ordered topical hydrocortisone cream
Supportive care
hypokalemia
- Continue potassium supplementation and adjust dosing as needed.
- replete Mg.
COPD without Acute Exacerbation
- Continue current inhaled medications / PRN nebs.
- No wheezing appreciated on exam.
AYLIN on CPAP
- Nightly AutoPap, home machine
s/p Panniculectomy
- Stable. Surgical site appears well-healed. No current issues.
Morbid Obesity
due to excess calories
- BMI > 60.
- Affects all aspects of care.
PT/OT recommends SNF
DVT Prophylaxis: On Eliquis
Code Status: Full
Anticipated Discharge: 24 - 48 hours
Subjective/Interval History
-
Date of Service: September 04, 2025
Patient feeling okay today, denies any acute issues overnight.
Objective Data
-
Labs:
Laboratory Results
09/04/25 09/04/25
04:12 04:13
WBC 13.0 H
Hgb 12.6 L
Hct 41.4
Plt Count 254
Sodium 134 L
Potassium 4.2
Chloride 96 L
Carbon Dioxide 32 H
BUN 17
Creatinine 0.6 L
Glucose 123 H
Calcium 8.7
Vital Signs:
Vital Signs
Temp Pulse Resp BP Pulse Ox
97.6 F 77 16 111/79 92
09/04/25 03:33 09/04/25 07:31 09/04/25 07:31 09/04/25 03:33 09/04/25 07:31
I&O
11/21/25 11/22/25 11/23/25
06:59 06:59 06:59
Intake Total 2420 / 2420 1140 / 1140
Output Total 1550 / 1550 2300 / 2300
Balance 870 / 870 -1160 / -1160
Review of Systems
-
All other systems: Reviewed and negative
Physical Exam
-
General: No Apparent Distress, Conversant and Morbidly Obese
HEENT: Anicteric, PERRLA and Other (Wax and erythematous rash with peeling skin noted in and around right ear)
Respiratory: Clear to Auscultation and Decreased Breath Sounds; Negative Wheezes or Rales
Cardiac: S1/S2 and Irregular Rhythm; Negative Murmur
GI: Soft, Nontender, Nondistended and Normal Bowel Sounds
Musculoskeletal: Edema, Left Lower Extrem
Skin: Warm, Dry and Rash (Erythematous peeling rash on face especially forehead and ears. on LLE there is erythema and edema and blistering)
Neuro: Awake and AO x 3
Psych: Calm
Data Reviewed
-
CT Scan: Report Reviewed by me and Discussed with Physician
Labs: Labs Reviewed by me, Discussed with Physician and Discussed with Patient
--- NOTE | 2025-09-04 09:30 | W.PN.ID1 ---
Date of Service
Date of Service: September 04, 2025
Today's Communication
Continue cefazolin.
Assessment / Plan
# L lung pneumonia
# Uncomplicated MSSA bacteremia 1 of 2 sets, most like lung source
# Staphylococcal epidermidis bacteremia 1 of 2 sets =contaminant
# Leukocytosis waxes and wanes
#A-fib with RVR now rate controlled
#Asthma/COPD without exacerbation
#BMI 64, sleep apnea on CPAP, recent abdominal panniculectomy
- TTE: limited study, no gross vege
- Repeat blood cx's x2 negative
- Continue doxycycline (d7 of 7)
- Continue cefazolin 2g IV q8h x 14 days through 09/12/25.
- midline in place
- Infusion sheet submitted to immigration case worker 09/01.
# LLE dermatitis vs panniculitis
- Continue topical hydrocortisone 2.5% cream bid (d2) x 10 days.
Additional Past Medical History:
Asthma/COPD
Atrial fibrillation on Eliquis
HFpEF
Urine incontinence
Obstructive sleep apnea on CPAP
Class III obesity BMI 64
Chronic sinusitis
Abdominal lymphedematous panniculectomy (25 lbs) at [facility] (07/2025)
Hernia repair
Bed-bound since 'dropped from a jamar-lift at a facility'
Chief Complaint
-: Pneumonia and Bacteremia
Subjective / Review of Systems
SOB continues to improve.
Vital Signs / Physical Exam
Vital Signs
Vital Signs
Temp Pulse Resp BP Pulse Ox
97.9 F 77 16 124/73 92
09/04/25 07:15 09/04/25 07:31 09/04/25 07:31 09/04/25 07:15 09/04/25 07:31
Physical Exam
Constitutional: No Acute Distress and Comfortable
Eyes: No Conjunctival Hemorrhage and Sclera Anicteric
Cardiovascular: Irregular Rate and S1/S2
Pulmonary: Clear
Gastrointestinal: Soft, Non Tender and Non Distended
Genito-Urinary: Negative CVA Tenderness
Extremities: Edema and Other (LLE: grijalva pale pink erythema with firm skin colored papules; left calf, hemorrhagic blister with resolving pale pink erythema; no warmth)
Skin: Other (excoriations upper chest)
Neurological: AO x 3
Lines: Other (LUE midline)
Objective Data
Lab Data
Lab Results
09/04/25 04:12
09/04/25 04:13
Estimated Creat Clear > 125 ml/min 09/04/25 04:13
Lactic Acid 1.8 mmol/L (0.7-2.0) 08/29/25 06:23
Total Bilirubin 0.4 mg/dl (0.2-1.3) 08/29/25 06:23
AST 17 U/L (17-59) 08/29/25 06:23
ALT 16 U/L (0-50) 08/29/25 06:23
Alkaline Phosphatase 134 U/L (38-126) H 08/29/25 06:23
Most recent labs reviewed.
Micro Results:
08/30/25 14:37 Blood Culture - Preliminary
Blood/Venous No Growth in 4 days- Final report to follow
08/30/25 16:41 Blood Culture - Preliminary
Blood/Venous No Growth in 4 days- Final report to follow
08/29/25 01:56 Blood Culture - Final
Blood/Venous No Growth - Final Report
08/29/25 01:56 Blood Culture - Preliminary
Blood/Venous S aureus-Methicillin Sensitive
Staphylococcus epidermidis
Gram Stain - Final
08/29/25 13:17 MRSA Screen - Final
Nose No Methicillin Resistant Staphylococcus aureus isolated.
08/30/25 11:52 Legionella Urinary Antigen - Final
Urine Negative for Legionella pneumophila Serogroup 1 antigen.
A negative result does not rule out the possiblity of
Legionella infection due to other serogroups or species of
Legionella. Clinical correlation is recommended.
Streptococcus pneumoniae Antigen (M - Final
Negative for Streptococcus pneumoniae antigen.
A negative result does not exclude infection with
Streptococcus pneumoniae. Clinical correlation is
recommended.
08/29/25 13:17 Influenza Types A & B (JAMES) - Final
Nasal Swab Negative for Influenza A & B, NAAT
Negative results must be combined with clinical observations
and patient history.
Nucleic Acid Amplification test (NAAT)performed on the
[employer] platform.
08/30/[address]: There is a consolidation with mild adjacent opacities within the left upper lobe which extends slightly into the superior left lower lobe which likely represents pneumonia. There is associated mildly prominent mediastinal lymph
nodes which are likely reactive. There are scattered pulmonary nodules measuring up to 7.8 mm in the right lower lobe. Recommend follow-up CT chest to ensure stability per Fleischner guidelines. Mild fusiform dilation of the ascending thoracic
aorta measuring 4.0 cm.
08/29/25 CXR: Persistent left lung opacity/consolidation especially in the mid lung zone, likely pneumonia.
08/28/25 CXR: There is a large amount of patchy and confluent increased attenuation throughout the left hemithorax. This could represent posterior layering of pleural fluid and/or pulmonary parenchymal consolidation, such as pneumonia.
[2025-09-04] MEDS: CARDIZEM CD 180 MG PO (09:49)
[2025-09-04] MEDS: KCL 40 MEQ PO ×2 (09:49→20:05)
[2025-09-04] MEDS: MUCINEX 1200 MG PO ×2 (09:49→20:07)
[2025-09-04] MEDS: PROTONIX 40 MG PO (09:49)
[2025-09-04] MEDS: ZAROXOLYN 2.5 MG PO (09:49)
[2025-09-04] MEDS: LIDOCAINE 4% PATCH 1 PATCH TOPICAL (09:49)
[2025-09-04] MEDS: VIBRAMYCIN 100 MG PO ×2 (09:49→20:08)
[2025-09-04] MEDS: LOW STRENGTH ASPIRIN 81 MG PO (09:50)
[2025-09-04] MEDS: TOPROL XL 50 MG PO ×2 (09:50→20:09)
[2025-09-04] MEDS: LIPITOR 20 MG PO (09:50)
[2025-09-04] MEDS: MAGNESIUM OXIDE 400 MG PO ×2 (09:50→20:07)
[2025-09-04] MEDS: ZYRTEC 10 MG PO (09:50)
[2025-09-04] MEDS: ELIQUIS 5 MG PO ×2 (09:50→20:14)
[2025-09-04] MEDS: HYDROCORTISONE 2.5% CREAM 1 APPLIC TOPICAL ×2 (09:51→20:17)
[2025-09-04] MEDS: DESENEX/MITRAZOL/ZEASORB 1 APPLIC TOPICAL ×2 (09:51→20:17)
[2025-09-04] MEDS: TRIAMCINOLONE ACETONIDE 0.1% 1 APPLIC TOPICAL (09:52)
[2025-09-04] MEDS: LASIX 40 MG IV ×2 (09:52→15:46)
[2025-09-04] MEDS: HYDROPHOR TOPICAL (09:52)
[2025-09-04] MEDS: TYLENOL 650 MG PO ×3 (10:12→22:39)
--- NOTE | 2025-09-04 10:49 | W.PN.CARDCBS ---
Today's Communication / Plan
-
Diurese
Oral anticoagulation
Is rate controlled
Weight loss
Impression / Plan
-
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
Impression:
Acute hypoxic respiratory insufficiency, multifactorial
Left lower lobe pneumonia
Bacteremia
Acute on chronic heart failure with preserved ejection fraction
Rapid atrial fibrillation with history of paroxysmal atrial fibrillation
Inappropriate Eliquis anticoagulation on admission
Morbid obesity with BMI greater than 60
Obstructive sleep apnea on CPAP
Iron deficiency anemia
ECHO 08/30/25: TDS despite lumason, LV function appears to be normal, mild LVH
Plan:
-Continue diuresis with IV Lasix. Add metolazone 2.5 mg daily to augment. Creatinine overall stable. He does have some mild hyponatremia. Continue to follow. Overnight he diuresed greater than 1 L
-rate controlled on review of tele. continue cardizem cd 180mg daily and toprol 50mg BID.
-he has inquired about getting out of afib. we discussed option of AAD therapy. suspect CV alone would not be successful given unknown chronicity of afib and comorbidities. Given his background BMI of 63 attempts at rhythm control would likely be
unsuccessful and thus we have a durable weight loss plan. He is tolerating apixaban.
-I would suggest him discussing this with his outpatient software tools build engineer after he is aggressively diuresed.
-echo as above, TDS however suspected normal LV function
- Would hold off on SLG 2 inhibitor due to risk of infection for now. Would continue discussions as outpatient.
-Exam is very difficult.
-remains on abx for LLL PNA. blood cultures negative
-continue CPAP for AYLIN. reportedly not being utilized at his [facility] facility.
Progress Note - School Secretary
Subjective
Date of Service: September 04, 2025
Diuresed overnight
Objective
Labs:
09/04/25 04:12
09/04/25 04:13
Labs
Hgb 12.6 g/dL (13.0-18.0) L 09/04/25 04:12
Hct 41.4 % (39.0-52.0) 09/04/25 04:12
Plt Count 254 10^3/uL (130-400) 09/04/25 04:12
Sodium 134 mmol/L (135-145) L 09/04/25 04:13
Potassium 4.2 mmol/L (3.5-5.1) 09/04/25 04:13
BUN 17 mg/dl (9-20) 09/04/25 04:13
Creatinine 0.6 mg/dL (0.7-1.3) L 09/04/25 04:13
Glucose 123 mg/dl (70-99) H 09/04/25 04:13
Vital Signs and I&O:
Vital Signs
Temp Pulse Resp BP Pulse Ox
97.9 F 77 16 124/73 92
09/04/25 07:15 09/04/25 07:31 09/04/25 07:31 09/04/25 07:15 09/04/25 07:31
Vital Signs
Temp Pulse Resp BP Pulse Ox
97.9 F 77 16 124/73 92
09/04/25 07:15 09/04/25 07:31 09/04/25 07:31 09/04/25 07:15 09/04/25 07:31
Intake & Output
09/02/25 09/03/25 09/04/25 09/05/25
06:59 06:59 06:59 06:59
Intake Total 1380 / 1380 2420 / 2420 1140 / 1140
Output Total 2450 / 2450 1550 / 1550 2300 / 2300
Balance -1070 / -1070 870 / 870 -1160 / -1160
Physical Exam
Physical Exam
����Physical Exam
���������������������General:��no apparent distress, not acutely ill
Super BMI�extreme morbid obesity
���������������������������Neck:��supple. no meningeal signs. normal psoterior pharynx
������������������������
���������������������������Heart:�Irregularly irregular, no murmur. equal radial pulses.
��������������������������Lungs: ��no acute respiratory distress. clear bilaterally
����������������������Abdomen:�normal bowel sounds. not tender. no CVAT
��������������������������Neuro:��alert and oriented. no focal neurological deficits
������������������������������Skin: ��no rash
�����������������������Psychiatric:�well kept. interactive and cooperative
�����������������������Extremities:��no edema. no calf tenderness. negative homans. good distal pulses
��
�
[2025-09-04 11:05] VITALS: BP 124/97
[2025-09-04 15:30] VITALS: BP 111/73
[2025-09-04] MEDS: VENTOLIN NEBULES 2.5 MG INH (19:31)
[2025-09-04] MEDS: AFRIN NASAL SPRAY 1 SPRAYS NASAL (20:16)
[2025-09-04] MEDS: REMOVE LIDOCAINE PATCH 1 PATCH REMOVE (20:17)
[2025-09-04] MEDS: BenGay-Like 1 APPLIC TOPICAL (20:18)
[2025-09-04] MEDS: TRIAMCINOLONE ACETONIDE 0.1% TOPICAL (20:19)
[2025-09-04] MEDS: SINGULAIR 10 MG PO (22:07)
[2025-09-04 23:26] VITALS: BP 126/68
[2025-09-05 05:39] LABS: Hematocrit 43.3 % (39.0-52.0); Hemoglobin 13.1 g/dL (13.0-18.0); Mean Corp Hgb Conc. 30.3 g/dL (33.0-37.0); Mean Corpuscular Volume 82.0 fL (80.0-94.0); Nucleated Red Blood Cells % 0 % (-); Platelet Count 247 10^3/uL (130-400); Red Cell Dist. Width 18.0 % (11.5-14.5)
[2025-09-05 05:52] LABS: Blood Urea Nitrogen 22 mg/dl (9-20); Calcium 8.9 mg/dl (8.4-10.2); Carbon Dioxide 34 mmol/L (22-30); Chloride 93 mmol/L (98-107); Estimated Creatinine Clearance > 125 ml/min; Glucose 124 mg/dl (70-99); Potassium 3.9 mmol/L (3.5-5.1); Sodium 131 mmol/L (135-145); eGFR > 60.00
[2025-09-05] MEDS: ANCEF 10 IV ×3 (06:41→22:27)
--- NOTE | 2025-09-05 07:23 | W.PN.HOSP.TC ---
Today's Communication/Plan
-
Continue diuresis.
Continue antibiotics
CM for discharge planning to a different SNF as per patient's request
Assessment / Plan
Assessment / Plan
65M w/morbid obesity, AYLIN on CPAP and A-Fib p/w SOB.
Acute on chronic HFpEF
Echo was technically limited due to body habitus
outside records from [facility]
Appreciate cardiology consult
Hold off SGLT2i due to infection
LE dopplers negative for DVT but limited study
Continue diuresis with IV Lasix twice daily and cardiology has also added metolazone
Monitor I's and O's, goal -1 L.
LLL Pneumonia
Acute Hypoxemic Respiratory Insufficiency -resolved, no longer on O2
Strep/Legionella negative, COVID/flu negative
Blood cultures +MSSA/Staph epidermidis
Repeat blood cultures NGTD
Continue empiric IV antibiotic�cephalexin EOT 09/12 for total 14-days, via midline. Completed p.o. Doxy for total 7 days.
consulted ID appreciated recs
pulmonary consulted appreciate recs, discussed care plan with them, now signed off
CT chest reviewed ARNOLD opacities represent pneumonia associated with likely reactive mediastinal lymph nodes
Supportive care including nebs�resume, mucolytics, etc. patient complaining of a lot of nasal congestion, question if he has some kind of sinusitis that he would need to see ENT for.
Leukocytosis noted 09/04, WBC 13-->12, afebrile, continue to trend, already on antibiotics
Paroxysmal Atrial Fibrillation
with RVR which has resolved
- IV Cardizem weaned off
oral cardizem and BB. HR better controlled
- Continue Eliquis BID
- Cardiology evaluation as noted above. Outpt cardiology f/u to discuss possible cardioversion.
- Would avoid further Sudafed doses.
LLE dermatitis
Erythema/edema/blistering
Concern for cellulitis versus DVT versus edema versus dermatitis
Already on antibiotics, already on Eliquis, also had Doppler study that was limited but did not show DVT. Discussed with ID, they have ordered topical hydrocortisone cream
Supportive care
hypokalemia
- improved. Continue potassium/magnesisum supplementation and adjust dosing as needed.
Hyponatremia
Mild, on IV diuresis as above, will continue for now
COPD without Acute Exacerbation
- Continue current inhaled medications / PRN nebs.
- No wheezing appreciated on exam.
AYLIN on CPAP
- Nightly AutoPap, home machine
s/p Panniculectomy
- Stable. Surgical site appears well-healed. No current issues.
Morbid Obesity
due to excess calories
- BMI > 60.
- Affects all aspects of care.
PT/OT recommends SNF, awaiting acceptance and auth
DVT Prophylaxis: On Eliquis
Code Status: Full
Anticipated Discharge: 24 - 48 hours
Subjective/Interval History
-
Date of Service: September 05, 2025
Patient denies any acute issues overnight
Objective Data
-
Labs:
Laboratory Results
09/05/25
05:17
WBC 12.2 H
Hgb 13.1
Hct 43.3
Plt Count 247
Sodium 131 L
Potassium 3.9
Chloride 93 L
Carbon Dioxide 34 H
BUN 22 H
Creatinine 0.6 L
Glucose 124 H
Calcium 8.9
Vital Signs:
Vital Signs
Temp Pulse Resp BP Pulse Ox
97.6 F 86 19 126/68 96
09/04/25 23:26 09/04/25 23:26 09/04/25 23:26 09/04/25 23:26 09/04/25 23:26
I&O
09/04/25 09/05/25 09/06/25
06:59 06:59 06:59
Intake Total 1140 / 1140 1440 / 1440
Output Total 2300 / 2300 600 / 600
Balance -1160 / -1160 840 / 840
Review of Systems
-
All other systems: Reviewed and negative
Physical Exam
-
General: No Apparent Distress, Conversant and Morbidly Obese
HEENT: Anicteric, PERRLA and Other (Wax and erythematous rash with peeling skin noted in and around right ear)
Respiratory: Clear to Auscultation and Decreased Breath Sounds; Negative Wheezes or Rales
Cardiac: S1/S2 and Irregular Rhythm; Negative Murmur
GI: Soft, Nontender, Nondistended and Normal Bowel Sounds
Musculoskeletal: Edema, Left Lower Extrem
Skin: Warm, Dry and Rash (Erythematous peeling rash on face especially forehead and ears. on LLE there is erythema and edema and blistering)
Neuro: Awake and AO x 3
Psych: Calm
Data Reviewed
-
CT Scan: Report Reviewed by me and Discussed with Physician
Labs: Labs Reviewed by me, Discussed with Physician and Discussed with Patient
[2025-09-05 07:58] VITALS: BP 113/70
[2025-09-05] MEDS: ADVAIR HFA 115/21 MCG INHALER 2 PUFF INH ×2 (08:05→19:29)
[2025-09-05] MEDS: VENTOLIN NEBULES 2.5 MG INH ×2 (09:43→19:32)
[2025-09-05] MEDS: MUCINEX 1200 MG PO ×2 (11:49→21:10)
[2025-09-05] MEDS: DESENEX/MITRAZOL/ZEASORB 1 APPLIC TOPICAL ×2 (11:49→21:16)
[2025-09-05] MEDS: ZYRTEC 10 MG PO (11:50)
[2025-09-05] MEDS: KCL 40 MEQ PO ×2 (11:50→21:10)
[2025-09-05] MEDS: CARDIZEM CD 180 MG PO (11:50)
[2025-09-05] MEDS: ZAROXOLYN 2.5 MG PO (11:50)
[2025-09-05] MEDS: TOPROL XL 50 MG PO ×2 (11:50→21:15)
[2025-09-05] MEDS: ELIQUIS 5 MG PO ×2 (11:50→21:12)
[2025-09-05] MEDS: LIPITOR 20 MG PO (11:50)
[2025-09-05] MEDS: LOW STRENGTH ASPIRIN 81 MG PO (11:50)
[2025-09-05] MEDS: MAGNESIUM OXIDE 400 MG PO ×2 (11:51→21:10)
[2025-09-05] MEDS: PROTONIX 40 MG PO (11:51)
[2025-09-05] MEDS: LIDOCAINE 4% PATCH 1 PATCH TOPICAL (11:51)
[2025-09-05] MEDS: FLUSH (NSS) 2 FLUSH IV ×2 (11:52→15:31)
[2025-09-05] MEDS: LASIX 40 MG IV ×2 (11:52→15:31)
[2025-09-05] MEDS: TYLENOL 650 MG PO ×2 (11:59→22:35)
[2025-09-05] MEDS: HYDROPHOR 1 APPLIC TOPICAL (12:02)
[2025-09-05] MEDS: HYDROCORTISONE 2.5% CREAM 1 APPLIC TOPICAL ×2 (12:03→21:17)
[2025-09-05] MEDS: TRIAMCINOLONE ACETONIDE 0.1% TOPICAL ×2 (15:09→21:28)
[2025-09-05 15:23] VITALS: BP 107/59
--- NOTE | 2025-09-05 16:22 | W.PN.ID1 ---
Date of Service
Date of Service: September 05, 2025
Today's Communication
Continue abx
Assessment / Plan
# L lung pneumonia, improving
# Uncomplicated MSSA bacteremia 1 of 2 sets, most like lung source
# Staphylococcal epidermidis bacteremia 1 of 2 sets =contaminant
# Leukocytosis waxes and wanes
#A-fib with RVR now rate controlled
#Asthma/COPD without exacerbation
#BMI 64, sleep apnea on CPAP, recent abdominal panniculectomy
- TTE: limited study, no gross vege
- Repeat blood cx's x2 negative
- Continue doxycycline (d7 of 7)
- Continue cefazolin 2g IV q8h x 14 days through 09/12/25.
- midline in place
- Infusion sheet submitted to shelter case manager 09/01.
# LLE venous stasis dermatitis vs panniculitis
- Continue topical hydrocortisone 2.5% cream bid (d3) x 10 days.
Additional Past Medical History:
Asthma/COPD
Atrial fibrillation on Eliquis
HFpEF
Urine incontinence
Obstructive sleep apnea on CPAP
Class III obesity BMI 64
Chronic sinusitis
Abdominal lymphedematous panniculectomy (25 lbs) at [facility] (07/2025)
Hernia repair
Bed-bound since 'dropped from a jamar-lift at a facility'
Chief Complaint
-: Pneumonia and Bacteremia
Subjective / Review of Systems
no complaints
Vital Signs / Physical Exam
Vital Signs
Vital Signs
Temp Pulse Resp BP Pulse Ox
97.7 F 89 18 107/59 94
09/05/25 15:23 09/05/25 15:23 09/05/25 15:23 09/05/25 15:23 09/05/25 15:23
Physical Exam
Constitutional: No Acute Distress and Comfortable
Eyes: No Conjunctival Hemorrhage and Sclera Anicteric
Cardiovascular: Irregular Rate and S1/S2
Pulmonary: Clear
Gastrointestinal: Soft, Non Tender and Non Distended
Genito-Urinary: Negative CVA Tenderness
Extremities: Edema and Other (LLE: pale pink erythema with firm skin colored papules; blister on calf)
Skin: Other (excoriations upper chest)
Neurological: AO x 3
Lines: Other (LUE midline)
Objective Data
Lab Data
Lab Results
09/05/25 05:17
09/05/25 05:17
Estimated Creat Clear > 125 ml/min 09/05/25 05:17
Lactic Acid 1.8 mmol/L (0.7-2.0) 08/29/25 06:23
Total Bilirubin 0.4 mg/dl (0.2-1.3) 08/29/25 06:23
AST 17 U/L (17-59) 08/29/25 06:23
ALT 16 U/L (0-50) 08/29/25 06:23
Alkaline Phosphatase 134 U/L (38-126) H 08/29/25 06:23
Most recent labs reviewed.
Micro Results:
08/30/25 14:37 Blood Culture - Final
Blood/Venous No Growth - Final Report
08/30/25 16:41 Blood Culture - Final
Blood/Venous No Growth - Final Report
08/29/25 01:56 Blood Culture - Final
Blood/Venous S aureus-Methicillin Sensitive
Staphylococcus epidermidis
Gram Stain - Final
08/29/25 01:56 Blood Culture - Final
Blood/Venous No Growth - Final Report
08/29/25 13:17 MRSA Screen - Final
Nose No Methicillin Resistant Staphylococcus aureus isolated.
08/30/25 11:52 Legionella Urinary Antigen - Final
Urine Negative for Legionella pneumophila Serogroup 1 antigen.
A negative result does not rule out the possiblity of
Legionella infection due to other serogroups or species of
Legionella. Clinical correlation is recommended.
Streptococcus pneumoniae Antigen (M - Final
Negative for Streptococcus pneumoniae antigen.
A negative result does not exclude infection with
Streptococcus pneumoniae. Clinical correlation is
recommended.
08/29/25 13:17 Influenza Types A & B (JAMES) - Final
Nasal Swab Negative for Influenza A & B, NAAT
Negative results must be combined with clinical observations
and patient history.
Nucleic Acid Amplification test (NAAT)performed on the
[employer] platform.
08/30/[address]: There is a consolidation with mild adjacent opacities within the left upper lobe which extends slightly into the superior left lower lobe which likely represents pneumonia. There is associated mildly prominent mediastinal lymph
nodes which are likely reactive. There are scattered pulmonary nodules measuring up to 7.8 mm in the right lower lobe. Recommend follow-up CT chest to ensure stability per Fleischner guidelines. Mild fusiform dilation of the ascending thoracic
aorta measuring 4.0 cm.
08/29/25 CXR: Persistent left lung opacity/consolidation especially in the mid lung zone, likely pneumonia.
08/28/25 CXR: There is a large amount of patchy and confluent increased attenuation throughout the left hemithorax. This could represent posterior layering of pleural fluid and/or pulmonary parenchymal consolidation, such as pneumonia.
[2025-09-05] MEDS: SINGULAIR 10 MG PO (21:11)
[2025-09-05] MEDS: REMOVE LIDOCAINE PATCH 1 PATCH REMOVE (21:17)
[2025-09-05] MEDS: BenGay-Like 1 APPLIC TOPICAL (21:18)
[2025-09-05 23:36] VITALS: BP 113/79
[2025-09-06 04:51] LABS: Hematocrit 43.8 % (39.0-52.0); Hemoglobin 13.6 g/dL (13.0-18.0); Mean Corp Hgb Conc. 31.1 g/dL (33.0-37.0); Mean Corpuscular Volume 77.4 fL (80.0-94.0); Nucleated Red Blood Cells % 0 % (-); Platelet Count 315 10^3/uL (130-400); Red Cell Dist. Width 18.2 % (11.5-14.5)
[2025-09-06 05:04] LABS: Blood Urea Nitrogen 26 mg/dl (9-20); Calcium 9.2 mg/dl (8.4-10.2); Carbon Dioxide 33 mmol/L (22-30); Chloride 92 mmol/L (98-107); Estimated Creatinine Clearance > 125 ml/min; Glucose 151 mg/dl (70-99); Potassium 4.3 mmol/L (3.5-5.1); Sodium 132 mmol/L (135-145); eGFR > 60.00
[2025-09-06 07:27] VITALS: BP 122/73
[2025-09-06] MEDS: HYDROCORTISONE 2.5% CREAM 1 APPLIC TOPICAL (08:06)
[2025-09-06] MEDS: DESENEX/MITRAZOL/ZEASORB 1 APPLIC TOPICAL ×2 (08:06→20:57)
[2025-09-06] MEDS: LIDOCAINE 4% PATCH 1 PATCH TOPICAL (08:07)
[2025-09-06] MEDS: ELIQUIS 5 MG PO ×2 (08:08→20:55)
[2025-09-06] MEDS: ZAROXOLYN 2.5 MG PO (08:08)
[2025-09-06] MEDS: CARDIZEM CD 180 MG PO (08:08)
[2025-09-06] MEDS: MAGNESIUM OXIDE 400 MG PO ×2 (08:08→20:55)
[2025-09-06] MEDS: TOPROL XL 50 MG PO ×2 (08:08→21:00)
[2025-09-06] MEDS: ZYRTEC 10 MG PO (08:09)
[2025-09-06] MEDS: KCL 40 MEQ PO (08:09)
[2025-09-06] MEDS: PROTONIX 40 MG PO (08:09)
[2025-09-06] MEDS: LOW STRENGTH ASPIRIN 81 MG PO (08:09)
[2025-09-06] MEDS: HYDROPHOR 1 APPLIC TOPICAL (08:09)
[2025-09-06] MEDS: LIPITOR 20 MG PO (08:09)
[2025-09-06] MEDS: MUCINEX 1200 MG PO ×2 (08:09→20:54)
[2025-09-06] MEDS: LASIX 40 MG IV ×2 (08:10→17:03)
[2025-09-06] MEDS: ANCEF 10 IV (08:12)
[2025-09-06] MEDS: ADVAIR HFA 115/21 MCG INHALER 2 PUFF INH ×2 (08:24→19:50)
--- NOTE | 2025-09-06 09:23 | W.PN.HOSP.TC ---
Today's Communication/Plan
-
see plan
Assessment / Plan
Assessment / Plan
65M w/morbid obesity, AYLIN on CPAP and A-Fib p/w SOB.
Gen: NAD, AAOx3.
Eyes: EOMI, PERRLA, no scleral icterus.
Neck: supple.
CV: RRR, +S1/S2, no m/r/g.
Resp: CTAB, no rales, wheezes, or rhonchi.
Abd: +BS, soft, NT, ND
Skin: LLE with pink colored area of skin c/w resolving cellulitis vs venous stasis dermatitis
Neuro: CN 2-12 intact, non-focal.
Psych: Normal mood and affect.
08/30/25 14:37 Blood/Venous Blood Culture - Final
No Growth - Final Report
08/30/25 16:41 Blood/Venous Blood Culture - Final
No Growth - Final Report
08/29/25 01:56 Blood/Venous Blood Culture - Final
S aureus-Methicillin Sensitive
Staphylococcus epidermidis
08/29/25 01:56 Blood/Venous Gram Stain - Final
08/29/25 01:56 Blood/Venous Blood Culture - Final
No Growth - Final Report
08/29/25 13:17 Nose MRSA Screen - Final
No Methicillin Resistant Staphylococcus aureus isolated.
08/30/25 11:52 Urine Legionella Urinary Antigen - Final
Negative for Legionella pneumophila Serogroup 1 antigen.
A negative result does not rule out the possiblity of
Legionella infection due to other serogroups or species of
Legionella. Clinical correlation is recommended.
08/30/25 11:52 Urine Streptococcus pneumoniae Antigen (M - Final
Negative for Streptococcus pneumoniae antigen.
A negative result does not exclude infection with
Streptococcus pneumoniae. Clinical correlation is
recommended.
08/29/25 13:17 Nasal Swab Influenza Types A & B (JAMES) - Final
Negative for Influenza A & B, NAAT
Negative results must be combined with clinical observations
and patient history.
Nucleic Acid Amplification test (NAAT)performed on the
[employer] platform.
Echo:
1. Very technically limited study despite Lumason.
2. Technically difficult study with very limited acoustic windows. Lumison used to enhance image quality with little benefit. Normal left ventricular size. Mild concentric left ventricular hypertrophy. In limited views, left ventricular systolic
function appears to be normal.
CT chest: There is a consolidation with mild adjacent opacities within the left upper lobe which extends slightly into the superior left lower lobe which likely represents pneumonia. There is associated mildly prominent mediastinal lymph nodes which
are likely reactive. There are scattered pulmonary nodules measuring up to 7.8 mm in the right lower lobe. Recommend follow-up CT chest to ensure stability per Fleischner guidelines.
B/L LE U/S: MARKEDLY LIMITED STUDY, as described without findings to confirm deep venous thrombosis of the lower extremity.
Acute on chronic HFpEF:
-Echo above
-cards following
-cont IV lasix
-no SGLT2i due to infection
-cont IV Lasix/Zaroxolyn
-daily wts, I/Os
Acute Hypoxemic Respiratory Insufficiency (resolved) due to LLL PNA:
-imaging above
-Strep/Legionella negative, COVID/flu negative
-BCXs with MSSA and Staph epidermidis, repeat BCxs NGTD
-completed 7 days PO Doxy
-cont IV ancef through 09/12 to complete 14 days as per ID
-trend WBC but increase in leukocytosis is not consistent with the patient's current clinical condition which is improving
PAF:
-with RVR, was on cardizem gtt, now off
-cont BB/Eliquis
-possible outpt CV
Other problems:
LLE cellulitis/dermatitis: currently on Ancef, cont topical hydrocortisone
Hypokalemia, resolved
Hyponatremia, mild
COPD without Acute Exacerbation: cont Advair, albuterol PRN
AYLIN on CPAPL Nightly AutoPap, home machine
h/o Panniculectomy
Morbid Obesity due to excess calories, BMI 63.7, affects all aspects of care
FULL/Eliquis
Total time spent on today's encounter was 50 minutes which included time spent in counseling the patient/family regarding diagnosis and treatment plan as listed above, goals of care, and symptom management. Case was discussed with nursing staff,
specialists, and care coordinators/case management. All labs and imaging personally reviewed by me. Remainder the time spent in detailed review of previous records, lab data, imaging, and other medical provider documentation.
Anticipated Discharge: 24 - 48 hours
Subjective/Interval History
-
Date of Service: September 06, 2025
No new complaints.
Objective Data
-
Labs:
Laboratory Results
09/06/25
04:28
WBC 15.5 H
Hgb 13.6
Hct 43.8
Plt Count 315 D
Sodium 132 L
Potassium 4.3
Chloride 92 L
Carbon Dioxide 33 H
BUN 26 H
Creatinine 0.7
Glucose 151 H
Calcium 9.2
Vital Signs:
Vital Signs
Temp Pulse Resp BP Pulse Ox
97.5 F 78 18 122/73 95
09/06/25 07:27 09/06/25 07:27 09/06/25 07:27 09/06/25 08:08 09/06/25 07:27
I&O
09/05/25 09/06/25 09/07/25
06:59 06:59 06:59
Intake Total 1440 / 1440 420 / 420
Output Total 600 / 600 1900 / 1900
Balance 840 / 840 -1480 / -1480
--- NOTE | 2025-09-06 09:59 | W.PN.CARDCBS ---
Today's Communication / Plan
-
Add spironolactone
Impression / Plan
-
Key Attendant: Follows with cardiology in [facility]
Impression:
Acute hypoxic respiratory insufficiency, multifactorial
Left lower lobe pneumonia
Bacteremia
Acute on chronic heart failure with preserved ejection fraction
Rapid atrial fibrillation with history of paroxysmal atrial fibrillation
Inappropriate Eliquis anticoagulation on admission
Morbid obesity with BMI greater than 60
Obstructive sleep apnea on CPAP
Iron deficiency anemia
ECHO 08/30/25: TDS despite lumason, LV function appears to be normal, mild LVH
Plan:
He is difficult to examine, but heart rate seems controlled per nursing, still obviously volume overloaded though no good way to determine dry weight.
Based on intake and output, he is diuresing, currently on furosemide 40 mg IV twice daily plus metolazone 2.5 mg daily.
Continue metoprolol ER 50 mg twice daily and diltiazem CD100 and 80 mg daily for rate control.
Will add spironolactone 25 mg a day for HFpEF. Will need to monitor sodium closely.
Probably not realistic to reestablish sinus rhythm in his case. Continue rate control and anticoagulation.
He is on aspirin and apixaban. Aspirin should be discontinued.
Given his size, unclear that there is an endpoint for management of his A-fib and HFpEF.
Progress Note - Key Attendant
Subjective
Date of Service: September 06, 2025:
65-year-old man with body mass index of 64, admitted with Staph aureus bacteremia and presumed pneumonia of the left lung, and atrial fibrillation with rapid ventricular response now better controlled, history of asthma/COPD
PMH: Asthma/COPD, history of atrial fibrillation on Eliquis, HFpEF, obstructive sleep apnea, body mass index of 64, history of panniculectomy, bedbound
Meds: Aspirin 81 mg a day, atorvastatin 20 mg a day, Singulair 10 mg a day, pantoprazole 40 mg a day, potassium 40 mEq twice daily, apixaban 5 mg twice daily, diltiazem CD100 80 mg daily, furosemide 40 mg IV twice daily, metoprolol ER 50 mg twice
daily, mag oxide 400 mg twice daily, Ancef, metolazone 2.5 mg daily
Intake and output -1.5 L, 125/73, pulse 78, afebrile, weights not obtainable, morbidly obese lying on his side, eating, exam very difficult, heart tones distant irregular, lungs distant, 3+ edema
White count 15.5, hemoglobin 13.6, MCV 77.4, BUN and creatinine 26 and 0.7, sodium 132, potassium 4.3
Objective
Labs:
09/06/25 04:28
09/06/25 04:28
Labs
Hgb 13.6 g/dL (13.0-18.0) 09/06/25 04:28
Hct 43.8 % (39.0-52.0) 09/06/25 04:28
Plt Count 315 10^3/uL (130-400) D 09/06/25 04:28
Sodium 132 mmol/L (135-145) L 09/06/25 04:28
Potassium 4.3 mmol/L (3.5-5.1) 09/06/25 04:28
BUN 26 mg/dl (9-20) H 09/06/25 04:28
Creatinine 0.7 mg/dL (0.7-1.3) 09/06/25 04:28
Glucose 151 mg/dl (70-99) H 09/06/25 04:28
Vital Signs and I&O:
Vital Signs
Temp Pulse Resp BP Pulse Ox
36.4 C 78 18 122/73 95
09/06/25 07:27 09/06/25 07:27 09/06/25 07:27 09/06/25 08:08 09/06/25 07:27
Vital Signs
Temp Pulse Resp BP Pulse Ox
36.4 C 78 18 122/73 95
09/06/25 07:27 09/06/25 07:27 09/06/25 07:27 09/06/25 08:08 09/06/25 07:27
Intake & Output
09/04/25 09/05/25 09/06/25 09/07/25
07:59 07:59 07:59 07:59
Intake Total 1140 / 1140 1440 / 1440 420 / 420
Output Total 2300 / 2300 600 / 600 1900 / 1900
Balance -1160 / -1160 840 / 840 -1480 / -1480
Physical Exam
Physical Exam
See above
[2025-09-06] MEDS: ALDACTONE 25 MG PO (12:49)
[2025-09-06] MEDS: TRIAMCINOLONE ACETONIDE 0.1% 1 APPLIC TOPICAL ×2 (12:49→20:58)
[2025-09-06] MEDS: TYLENOL 650 MG PO ×2 (12:52→21:04)
--- NOTE | 2025-09-06 14:53 | CM ---
CM following re: discharge planning.
reviewed pt's chart, met with [t.
CM spoke to [facility] daycare director, the only SNF that was looking for to accept the pt and she confirmed that a referral has been denied due to out of network with [employer] insurance.
Pt is aware, expressed his deep and angry feelings and he stated he does not want to return back to [facility]. Pt stated : 'I will kill myself if i go back to [facility] or shoot my now to '. Emotional support offered and provided.
Pt will need some time to process regarding difficulties with placement due to his weight and narrow insurance network in [facility].
D/C plan: preferred and accepted SNF for a short term rehab and a terminologist care.
CM will continue to make useful efforts to find/locate a new SNF.
[2025-09-06 15:21] VITALS: BP 114/66
--- NOTE | 2025-09-06 15:35 | W.PN.ID1 ---
Date of Service
Date of Service: September 06, 2025
Today's Communication
Replace cefazolin with Unasyn. See below.
Assessment / Plan
# Rash - possibly due to cefazolin
# L lung pneumonia, improving
# Uncomplicated MSSA bacteremia 1 of 2 sets, most like lung source
# Staphylococcal epidermidis bacteremia 1 of 2 sets =contaminant
# Leukocytosis waxes and wanes
#A-fib with RVR now rate controlled
#Asthma/COPD without exacerbation
#BMI 64, sleep apnea on CPAP, recent abdominal panniculectomy
- TTE: limited study, no gross vege
- Repeat blood cx's x2 negative
- s/p 7d Doxycycline
- midline in place
- DC cefazolin 2g IV q8h (d7) due to rash
- Replace with Unasyn 3g IV q6h through 09/12/25. Of note pt states he tolerated amoxicillin in the past.
Additional Past Medical History:
Asthma/COPD
Atrial fibrillation on Eliquis
HFpEF
Urine incontinence
Obstructive sleep apnea on CPAP
Class III obesity BMI 64
Chronic sinusitis
Abdominal lymphedematous panniculectomy (25 lbs) at [facility] (07/2025)
Hernia repair
Bed-bound since 'dropped from a jamar-lift at a facility'
Chief Complaint
-: Pneumonia and Bacteremia
Subjective / Review of Systems
+ rash. He reports h/o 'tinea vesicolor currently on topical triamcinolone.
Vital Signs / Physical Exam
Vital Signs
Vital Signs
Temp Pulse Resp BP Pulse Ox
97.4 F 84 18 114/66 96
09/06/25 15:21 09/06/25 15:21 09/06/25 15:21 09/06/25 15:21 09/06/25 15:21
Physical Exam
Constitutional: No Acute Distress and Obese
Pulmonary: Clear
Gastrointestinal: Soft, Non Tender and Non Distended
Extremities: Edema (BLE)
Skin: Rash (Erythematous macules on chest, abdomen posterior back)
Neurological: AO x 3
Objective Data
Lab Data
Lab Results
09/06/25 04:28
09/06/25 04:28
Estimated Creat Clear > 125 ml/min 09/06/25 04:28
Lactic Acid 1.8 mmol/L (0.7-2.0) 08/29/25 06:23
Total Bilirubin 0.4 mg/dl (0.2-1.3) 08/29/25 06:23
AST 17 U/L (17-59) 08/29/25 06:23
ALT 16 U/L (0-50) 08/29/25 06:23
Alkaline Phosphatase 134 U/L (38-126) H 08/29/25 06:23
Most recent labs reviewed.
Micro Results:
08/30/25 14:37 Blood Culture - Final
Blood/Venous No Growth - Final Report
08/30/25 16:41 Blood Culture - Final
Blood/Venous No Growth - Final Report
08/29/25 01:56 Blood Culture - Final
Blood/Venous S aureus-Methicillin Sensitive
Staphylococcus epidermidis
Gram Stain - Final
08/29/25 01:56 Blood Culture - Final
Blood/Venous No Growth - Final Report
08/29/25 13:17 MRSA Screen - Final
Nose No Methicillin Resistant Staphylococcus aureus isolated.
08/30/25 11:52 Legionella Urinary Antigen - Final
Urine Negative for Legionella pneumophila Serogroup 1 antigen.
A negative result does not rule out the possiblity of
Legionella infection due to other serogroups or species of
Legionella. Clinical correlation is recommended.
Streptococcus pneumoniae Antigen (M - Final
Negative for Streptococcus pneumoniae antigen.
A negative result does not exclude infection with
Streptococcus pneumoniae. Clinical correlation is
recommended.
08/29/25 13:17 Influenza Types A & B (JAMES) - Final
Nasal Swab Negative for Influenza A & B, NAAT
Negative results must be combined with clinical observations
and patient history.
Nucleic Acid Amplification test (NAAT)performed on the
[employer] platform.
08/30/[address]: There is a consolidation with mild adjacent opacities within the left upper lobe which extends slightly into the superior left lower lobe which likely represents pneumonia. There is associated mildly prominent mediastinal lymph
nodes which are likely reactive. There are scattered pulmonary nodules measuring up to 7.8 mm in the right lower lobe. Recommend follow-up CT chest to ensure stability per Fleischner guidelines. Mild fusiform dilation of the ascending thoracic
aorta measuring 4.0 cm.
08/29/25 CXR: Persistent left lung opacity/consolidation especially in the mid lung zone, likely pneumonia.
08/28/25 CXR: There is a large amount of patchy and confluent increased attenuation throughout the left hemithorax. This could represent posterior layering of pleural fluid and/or pulmonary parenchymal consolidation, such as pneumonia.
[2025-09-06] MEDS: ANCEF IV (16:00)
[2025-09-06] MEDS: UNASYN IV ×2 (17:03→22:57)
[2025-09-06] MEDS: VENTOLIN NEBULES 2.5 MG INH (19:54)
[2025-09-06] MEDS: KCL 20 MEQ PO (20:53)
[2025-09-06] MEDS: SINGULAIR 10 MG PO (20:54)
[2025-09-06] MEDS: REMOVE LIDOCAINE PATCH 1 PATCH REMOVE (20:57)
[2025-09-06] MEDS: BenGay-Like 1 APPLIC TOPICAL (22:58)
[2025-09-06 23:12] VITALS: BP 112/59
[2025-09-07] MEDS: UNASYN IV (05:44)
[2025-09-07 07:00] VITALS: BP 102/70
[2025-09-07] MEDS: ADVAIR HFA 115/21 MCG INHALER 2 PUFF INH (07:15)
--- NOTE | 2025-09-07 08:30 | W.PN.HOSP.TC ---
Addendum entered and electronically signed by Cristobal Allison MD 09/07/25 11:32:
Total time spent on d/c = 38 min. This included today's physical exam, progress note, review of laboratory and diagnostic data, preparation of discharge documents and prescriptions, and discussions about the pt's hospital course and discharge plan
with the patient and other medical billing and coding specialist involved in the patient's care.
Original Note:
Today's Communication/Plan
-
see plan
Assessment / Plan
Assessment / Plan
65M w/morbid obesity, AYLIN on CPAP and A-Fib p/w SOB.
Gen: NAD, AAOx3.
Eyes: EOMI, PERRLA, no scleral icterus.
Neck: supple.
CV: remains RRR, +S1/S2, no m/r/g.
Resp: CTAB anteriorly, no rales, wheezes, or rhonchi.
Abd: +BS, soft, NT, ND
Skin: remains LLE with pink colored area of skin c/w resolving cellulitis vs venous stasis dermatitis
Neuro: CN 2-12 intact, non-focal.
Psych: Normal mood and affect.
08/30/25 14:37 Blood/Venous Blood Culture - Final
No Growth - Final Report
08/30/25 16:41 Blood/Venous Blood Culture - Final
No Growth - Final Report
08/29/25 01:56 Blood/Venous Blood Culture - Final
S aureus-Methicillin Sensitive
Staphylococcus epidermidis
08/29/25 01:56 Blood/Venous Gram Stain - Final
08/29/25 01:56 Blood/Venous Blood Culture - Final
No Growth - Final Report
08/29/25 13:17 Nose MRSA Screen - Final
No Methicillin Resistant Staphylococcus aureus isolated.
08/30/25 11:52 Urine Legionella Urinary Antigen - Final
Negative for Legionella pneumophila Serogroup 1 antigen.
A negative result does not rule out the possiblity of
Legionella infection due to other serogroups or species of
Legionella. Clinical correlation is recommended.
08/30/25 11:52 Urine Streptococcus pneumoniae Antigen (M - Final
Negative for Streptococcus pneumoniae antigen.
A negative result does not exclude infection with
Streptococcus pneumoniae. Clinical correlation is
recommended.
08/29/25 13:17 Nasal Swab Influenza Types A & B (JAMES) - Final
Negative for Influenza A & B, NAAT
Negative results must be combined with clinical observations
and patient history.
Nucleic Acid Amplification test (NAAT)performed on the
[employer] platform.
Echo:
1. Very technically limited study despite Lumason.
2. Technically difficult study with very limited acoustic windows. Lumison used to enhance image quality with little benefit. Normal left ventricular size. Mild concentric left ventricular hypertrophy. In limited views, left ventricular systolic
function appears to be normal.
CT chest: There is a consolidation with mild adjacent opacities within the left upper lobe which extends slightly into the superior left lower lobe which likely represents pneumonia. There is associated mildly prominent mediastinal lymph nodes which
are likely reactive. There are scattered pulmonary nodules measuring up to 7.8 mm in the right lower lobe. Recommend follow-up CT chest to ensure stability per Fleischner guidelines.
B/L LE U/S: MARKEDLY LIMITED STUDY, as described without findings to confirm deep venous thrombosis of the lower extremity.
Acute on chronic HFpEF:
-Echo above
-cards following
-no SGLT2i due to infection
-cont IV Lasix/Zaroxolyn
-aldactone started
-daily wts, I/Os
Acute Hypoxemic Respiratory Insufficiency (resolved) due to LLL PNA:
-imaging above
-Strep/Legionella negative, COVID/flu negative
-BCXs with MSSA and Staph epidermidis, repeat BCxs NGTD
-completed 7 days PO Doxy
-was on IV ancef (not stopped due to rash) now on IV Unasyn through 09/12 to complete 14 days as per ID
-trend WBC but increase in leukocytosis is not consistent with the patient's current clinical condition which is improving
PAF:
-with RVR, was on cardizem gtt, now off
-cont BB/Eliquis
-possible outpt CV
Other problems:
LLE cellulitis/dermatitis: currently on Unasyn, cont topical hydrocortisone
Hypokalemia, resolved
Hyponatremia, mild
COPD without Acute Exacerbation: cont Advair, albuterol PRN
AYLIN on CPAPL Nightly AutoPap, home machine
h/o Panniculectomy
Morbid Obesity due to excess calories, BMI 63.7, affects all aspects of care
FULL/Eliquis
Dispo: d/c today if OK with cards
Anticipated Discharge: Today
Subjective/Interval History
-
Date of Service: September 07, 2025
No new complaints.
Objective Data
-
Vital Signs:
Vital Signs
Temp Pulse Resp BP Pulse Ox
98.1 F 101 20 112/59 97
09/06/25 23:12 09/07/25 07:17 09/07/25 07:17 09/06/25 23:12 09/07/25 07:17
I&O
09/06/25 09/07/25 09/08/25
06:59 06:59 06:59
Intake Total 420 / 420 1380 / 1380
Output Total 1900 / 1900 2950 / 2950
Balance -1480 / -1480 -1570 / -1570
[2025-09-07] MEDS: VENTOLIN NEBULES 2.5 MG INH (09:17)
--- NOTE | 2025-09-07 09:18 | W.PN.CARDCBS ---
Today's Communication / Plan
-
Overall improved and stable for discharge from cardiology standpoint.
Continue rate control strategy for A-fib. Continue diltiazem 180 mg daily and metoprolol XL 50 mg p.o. twice daily.
Continue Eliquis 5 mg p.o. twice daily.
Blood pressure is stable controlled. Continue spironolactone 25 mg daily.
I suspect he has lost significant amounts of weight but we are unable to weigh him due to his super morbid obesity.
Would discharge on Lasix 60 mg p.o. twice daily with Zaroxolyn 2.5 mg daily.
Check basic metabolic panel in 1 to 2 weeks.
If he is going to remain in the [facility] we will follow-up with him as outpatient.
Impression / Plan
-
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
Impression:
Acute hypoxic respiratory insufficiency, multifactorial
Left lower lobe pneumonia
Bacteremia
Acute on chronic heart failure with preserved ejection fraction
Rapid atrial fibrillation with history of paroxysmal atrial fibrillation
Inappropriate Eliquis anticoagulation on admission
Morbid obesity with BMI greater than 60
Obstructive sleep apnea on CPAP
Iron deficiency anemia
ECHO 08/30/25: TDS despite lumason, LV function appears to be normal, mild LVH
Plan:
Unable to weigh him but overall I suspect he has lost significant amounts of weight. From a cardiac standpoint okay for discharge back to [facility] or another facility.
Would discharge on Lasix 60 mg p.o. twice daily with Zaroxolyn 2.5 mg daily. Will check basic metabolic panel in 1 to 2 weeks.
Continue metoprolol ER 50 mg twice daily and diltiazem CD 180 mg daily for rate control.
Continue spironolactone 25 mg daily. Blood pressure is stable and controlled.
Probably not realistic to reestablish sinus rhythm in his case. Continue rate control and anticoagulation.
He is on aspirin and apixaban. Aspirin should be discontinued.
He needs to decide where he is going to live in follow-up. If he remains in the [facility] area we will arrange outpatient follow-up.
Progress Note - Marketing Financial Analyst
Subjective
Date of Service: September 07, 2025
Overall has improved and breathing is better. Still has baseline dyspnea due to super morbid obesity.
Objective
Labs:
Labs
Hgb 13.6 g/dL (13.0-18.0) 09/06/25 04:28
Hct 43.8 % (39.0-52.0) 09/06/25 04:28
Plt Count 315 10^3/uL (130-400) D 09/06/25 04:28
Sodium 132 mmol/L (135-145) L 09/06/25 04:28
Potassium 4.3 mmol/L (3.5-5.1) 09/06/25 04:28
BUN 26 mg/dl (9-20) H 09/06/25 04:28
Creatinine 0.7 mg/dL (0.7-1.3) 09/06/25 04:28
Glucose 151 mg/dl (70-99) H 09/06/25 04:28
Vital Signs and I&O:
Vital Signs
Temp Pulse Resp BP Pulse Ox
97.6 F 101 20 102/70 97
09/07/25 07:00 09/07/25 07:17 09/07/25 07:17 09/07/25 07:00 09/07/25 07:17
Vital Signs
Temp Pulse Resp BP Pulse Ox
97.6 F 101 20 102/70 97
09/07/25 07:00 09/07/25 07:17 09/07/25 07:17 09/07/25 07:00 09/07/25 07:17
Intake & Output
09/05/25 09/06/25 09/07/25 09/08/25
06:59 06:59 06:59 06:59
Intake Total 1440 / 1440 420 / 420 1380 / 1380
Output Total 600 / 600 1900 / 1900 2950 / 2950
Balance 840 / 840 -1480 / -1480 -1570 / -1570
Physical Exam
Physical Exam
GEN: No distress, awake
HEENT: supple, anicteric, mmm
LUNGS: bilat rhonchi
CV: Irreg, S1/S2, 1/6 syst LSB, no gallop
ABD: soft, BS+, NT/ND
EXT: No edema
NEURO: Gross non-focal
SKIN: No rash
[2025-09-07] MEDS: CARDIZEM CD 180 MG PO (09:26)
[2025-09-07] MEDS: KCL 20 MEQ PO (09:27)
[2025-09-07] MEDS: LIPITOR 20 MG PO (09:27)
[2025-09-07] MEDS: MAGNESIUM OXIDE 400 MG PO (09:27)
[2025-09-07] MEDS: ZYRTEC 10 MG PO (09:27)
[2025-09-07] MEDS: TOPROL XL 50 MG PO (09:27)
[2025-09-07] MEDS: ELIQUIS 5 MG PO (09:27)
[2025-09-07] MEDS: LIDOCAINE 4% PATCH 1 PATCH TOPICAL (09:27)
[2025-09-07] MEDS: ZAROXOLYN 2.5 MG PO (09:28)
[2025-09-07] MEDS: MUCINEX 1200 MG PO (09:28)
[2025-09-07] MEDS: LASIX 40 MG IV (09:28)
[2025-09-07] MEDS: ALDACTONE 25 MG PO (09:28)
[2025-09-07] MEDS: PROTONIX 40 MG PO (09:28)
[2025-09-07] MEDS: HYDROPHOR 1 APPLIC TOPICAL (09:29)
[2025-09-07] MEDS: DESENEX/MITRAZOL/ZEASORB 1 APPLIC TOPICAL (09:29)
[2025-09-07] MEDS: TRIAMCINOLONE ACETONIDE 0.1% 1 APPLIC TOPICAL (09:29)
[2025-09-07 09:40] LABS: Hematocrit 44.7 % (39.0-52.0); Hemoglobin 13.6 g/dL (13.0-18.0); Mean Corp Hgb Conc. 30.4 g/dL (33.0-37.0); Mean Corpuscular Volume 81.7 fL (80.0-94.0); Platelet Count 302 10^3/uL (130-400); Red Cell Dist. Width 18.4 % (11.5-14.5)
[2025-09-07 10:03] LABS: Blood Urea Nitrogen 30 mg/dl (9-20); Calcium 9.2 mg/dl (8.4-10.2); Carbon Dioxide 36 mmol/L (22-30); Chloride 91 mmol/L (98-107); Estimated Creatinine Clearance > 125 ml/min; Glucose 115 mg/dl (70-99); Potassium 3.8 mmol/L (3.5-5.1); Sodium 134 mmol/L (135-145); eGFR > 60.00
--- NOTE | 2025-09-07 10:04 | W.PN.ID1 ---
Date of Service
Date of Service: September 07, 2025
Today's Communication
- DC Unasyn 3g IV q6h(d1) due to worsening rash
- Start linezolid 600mg po bid through 09/12/25 to finish course.
Assessment / Plan
# Drug rash - while on cefazolin, progressed on Unasyn
# L lung pneumonia, improving
# Uncomplicated MSSA bacteremia 1 of 2 sets, most like lung source
# Staphylococcal epidermidis bacteremia 1 of 2 sets =contaminant
# Leukocytosis waxes and wanes
#A-fib with RVR now rate controlled
#Asthma/COPD without exacerbation
#BMI 64, sleep apnea on CPAP, recent abdominal panniculectomy
- TTE: limited study, no gross vege
- Repeat blood cx's x2 negative
- s/p 7d Doxycycline
- midline in place
- DC'd cefazolin 2g IV q8h (d7) due to rash
- DC Unasyn 3g IV q6h(d1) due to worsening rash
- Start linezolid 600mg po bid through 09/12/25 to finish course.
Additional Past Medical History:
Asthma/COPD
Atrial fibrillation on Eliquis
HFpEF
Urine incontinence
Obstructive sleep apnea on CPAP
Class III obesity BMI 64
Chronic sinusitis
Abdominal lymphedematous panniculectomy (25 lbs) at [facility] (07/2025)
Hernia repair
Bed-bound since 'dropped from a jamar-lift at a facility'
Chief Complaint
-: Pneumonia and Bacteremia
Subjective / Review of Systems
Rash appears worse. Denies itching.
Vital Signs / Physical Exam
Vital Signs
Vital Signs
Temp Pulse Resp BP Pulse Ox
97.6 F 101 20 102/70 97
09/07/25 07:00 09/07/25 07:17 09/07/25 07:17 09/07/25 09:27 09/07/25 07:17
Physical Exam
Constitutional: Obese
Cardiovascular: Regular Rate and S1/S2
Pulmonary: Clear
Gastrointestinal: Soft, Non Tender and Non Distended
Extremities: Edema (BLE)
Skin: Rash (Erythematous macular rash on chest, abdomen, posterior back progressed)
Neurological: AO x 3
Objective Data
Lab Data
Lab Results
09/07/25 09:25
09/07/25 09:25
Estimated Creat Clear > 125 ml/min 09/07/25 09:25
Lactic Acid 1.8 mmol/L (0.7-2.0) 08/29/25 06:23
Total Bilirubin 0.4 mg/dl (0.2-1.3) 08/29/25 06:23
AST 17 U/L (17-59) 08/29/25 06:23
ALT 16 U/L (0-50) 08/29/25 06:23
Alkaline Phosphatase 134 U/L (38-126) H 08/29/25 06:23
Most recent labs reviewed.
Micro Results:
08/30/25 14:37 Blood Culture - Final
Blood/Venous No Growth - Final Report
08/30/25 16:41 Blood Culture - Final
Blood/Venous No Growth - Final Report
08/29/25 01:56 Blood Culture - Final
Blood/Venous S aureus-Methicillin Sensitive
Staphylococcus epidermidis
Gram Stain - Final
08/29/25 01:56 Blood Culture - Final
Blood/Venous No Growth - Final Report
08/29/25 13:17 MRSA Screen - Final
Nose No Methicillin Resistant Staphylococcus aureus isolated.
08/30/25 11:52 Legionella Urinary Antigen - Final
Urine Negative for Legionella pneumophila Serogroup 1 antigen.
A negative result does not rule out the possiblity of
Legionella infection due to other serogroups or species of
Legionella. Clinical correlation is recommended.
Streptococcus pneumoniae Antigen (M - Final
Negative for Streptococcus pneumoniae antigen.
A negative result does not exclude infection with
Streptococcus pneumoniae. Clinical correlation is
recommended.
08/29/25 13:17 Influenza Types A & B (JAMES) - Final
Nasal Swab Negative for Influenza A & B, NAAT
Negative results must be combined with clinical observations
and patient history.
Nucleic Acid Amplification test (NAAT)performed on the
[employer] platform.
08/30/[address]: There is a consolidation with mild adjacent opacities within the left upper lobe which extends slightly into the superior left lower lobe which likely represents pneumonia. There is associated mildly prominent mediastinal lymph
nodes which are likely reactive. There are scattered pulmonary nodules measuring up to 7.8 mm in the right lower lobe. Recommend follow-up CT chest to ensure stability per Fleischner guidelines. Mild fusiform dilation of the ascending thoracic
aorta measuring 4.0 cm.
08/29/25 CXR: Persistent left lung opacity/consolidation especially in the mid lung zone, likely pneumonia.
08/28/25 CXR: There is a large amount of patchy and confluent increased attenuation throughout the left hemithorax. This could represent posterior layering of pleural fluid and/or pulmonary parenchymal consolidation, such as pneumonia.
Care Review
Plan reviewed with: Physician (Dr. Allison)
--- NOTE | 2025-09-07 11:42 | CM ---
Addendum entered by Delia Wilson 09/07/25 11:51:
CM spoke with liaison regarding auth and they will speak with meaghan about continuing auth.
Original Note:
Patient seen at bedside in [address] [place] [address] with Director of case management, liaison from [facility] and . Provided IMM and patient refused to sign form, CM circled information to appeal and provided form with patient. Patient for ambulance transfer back
to [facility] following extensive discussions with patient about returning to facility and patient concerns. [facility] has been out to interview patient and has not found any cause. Patient aware that [facility] is to follow
with the facility. CM sent updated referrals to all options and have not had any acceptances. Patient had previously been at a facility in [place] per admissions in [facility] and per [place] [phone] they could not accept into their
buildings due to concerns. Patient updated about all referrals and Liaison agreed to work with middleware administrator and facility staff about patient concerns. Patient ambulance transportation forms given to SNF. CM will continue to follow for discharge
planning needs.
Plan; return to snf.
Please call report to [phone]/fax [phone]
[2025-09-07] MEDS: ZYVOX 600 MG PO (13:33)
[2025-09-07] MEDS: FLUZONE (6 mos+) 2025-2026 FORMULA 0.5 ML IM (13:33)
--- NOTE | 2025-09-07 13:40 | VATNOTE ---
Midline D/C'd per protocol. TCL retrieved was 16cm. Pressure dressing applied.
[2025-09-07 15:26] VITALS: BP 100/56
== END 2025-09-07 17:12 | DRG 193 ==
LOC: 2 NORTH 03:27
PROVIDERS: Internal Medicine; ADMITTING PHYSICIAN Hospitalist; ATTENDING PHYSICIAN Internal Medicine; CONSULT PHYSICIAN Internal Medicine Cardiovascular Disease; CONSULT PHYSICIAN Internal Medicine Infectious Disease; EMERGENCY PHYSICIAN Student in an Organized Health Care Education/Training Program; FAMILY PHYSICIAN Internal Medicine; OTHER PHYSICIAN Internal Medicine Critical Care Medicine
PROC: 3E02340 Introduction of Influenza Vaccine into Muscle, Percutaneous Approach (ICD-10-PCS; 2025-09-07)
DX: J18.9 Pneumonia, unspecified organism (principal); I50.33 Acute on chronic diastolic (congestive) heart failure; J96.01 Acute respiratory failure with hypoxia; J44.1 Chronic obstructive pulmonary disease with (acute) exacerbation; J44.0 Chronic obstructive pulmonary disease with (acute) lower respiratory infection; Z68.44 Body mass index [BMI] 60.0-69.9, adult; E87.1 Hypo-osmolality and hyponatremia; I31.39 Other pericardial effusion (noninflammatory); R78.81 Bacteremia; I48.0 Paroxysmal atrial fibrillation; Z87.891 Personal history of nicotine dependence; D50.9 Iron deficiency anemia, unspecified; G47.33 Obstructive sleep apnea (adult) (pediatric); I89.0 Lymphedema, not elsewhere classified; K21.9 Gastro-esophageal reflux disease without esophagitis; E87.6 Hypokalemia; E66.01 Morbid (severe) obesity due to excess calories; Z74.01 Bed confinement status; I11.0 Hypertensive heart disease with heart failure; Z79.01 Long term (current) use of anticoagulants; Z79.82 Long term (current) use of aspirin; Z79.899 Other long term (current) drug therapy; Z11.52 Encounter for screening for COVID-19; Z23 Encounter for immunization
CPT/HCPCS: 71045; 71250; 73030; 80048; 80053; 80061; 80076; 83036; 83605; 83735; 83880; 84100; 84132; 84443; 84484; 85025; 85027; 87040; 87070; 87147; 87154; 87186; 87205; 87449; 87502; 87811; 87899; 90656; 93005; 93308; 93321; 93325; 93970; 94640; 94660; 96365; 96366; 96375; 97163; 97167; 97530; 97535; 99291; G0008; Q9950

== ENCOUNTER 2025-09-15 20:40 | Inpatient (IN) | payer OTHER, SELFPAY ==
[2025-09-15] VITALS (7 sets, daily range): BP systolic 107–124; BP diastolic 63–79
[2025-09-15 15:55] LABS: Hematocrit 42.3 % (39.0-52.0); Hemoglobin 13.4 g/dL (13.0-18.0); Mean Corp Hgb Conc. 31.7 g/dL (33.0-37.0); Mean Corpuscular Volume 76.8 fL (80.0-94.0); Nucleated Red Blood Cells % 0 % (-); Platelet Count 291 10^3/uL (130-400); Red Cell Dist. Width 17.8 % (11.5-14.5)
[2025-09-15 16:09] LABS: ALT (SGPT) 17 U/L (0-50); AST (SGOT) 20 U/L (17-59); Albumin 4.2 g/dl (3.5-5.0); Alkaline Phosphatase 155 U/L (38-126); Blood Urea Nitrogen 31 mg/dl (9-20); Calcium 9.1 mg/dl (8.4-10.2); Carbon Dioxide 36 mmol/L (22-30); Chloride 86 mmol/L (98-107); Glucose 160 mg/dl (70-99); Potassium 3.7 mmol/L (3.5-5.1); Sodium 131 mmol/L (135-145); Total Protein 7.6 g/dl (6.3-8.2); eGFR > 60.00
[2025-09-15 16:19] LABS: Troponin I < 0.012 ng/ml
[2025-09-15 16:20] LABS: D-Dimer 0.98 ug/mlFEU (0.00-0.50)
--- NOTE | 2025-09-15 17:12 | ED.GENMED ---
History of Present Illness
General
Chief Complaint: Breathing Problem
Source: patient and ambulance crew
Exam Limitations: none
Time Seen by Provider: 09/15/25 17:09
Nursing documentation reviewed up to this point in time: agreed with
History of Present Illness
History of Present Illness:
Note:
CHIEF COMPLAINT(S)
Chest tightness and difficulty breathing.
HISTORY OF PRESENT ILLNESS
The patient is a 65-year-old male presenting with chest tightness and difficulty breathing. He describes a sensation of heaviness in the chest and states, �Everythings just really tight to heavy.� He reports that the discomfort extends to his throat
and the right side of his face, saying that his �whole right side� feels congested. He denies having chills or fever. The patient states that his symptoms have been present for about one day.
PAST MEDICAL AND SURGICAL HISTORY
The patient has a history of atrial fibrillation and is on blood thinners (Eliquis).
SOCIAL HISTORY
The patient is described as morbidly obese.
PHYSICAL EXAM
General: Morbidly obese, coughing, and tachycardic, alert, and oriented.
Skin: Mild erythema noted on the right face.
Head: Normocephalic.
Eye, Ears, Nose, Mouth, and Throat: Right tympanic membrane obscured by cerumen.
Neck: Supple.
Respiratory: Difficulty breathing noted by the patient.
Neurological: Alert and oriented to person, place, and situation.
PROBLEM LIST
Acute:
- Chest tightness
- Difficulty breathing
- Right facial congestion
Chronic:
- Atrial fibrillation
PLAN
1. Assess cardiac function and manage atrial fibrillation as needed.
2. Evaluate respiratory status and provide supportive care.
3. Conduct a thorough examination to address right facial congestion.
DIFFERENTIAL DIAGNOSIS
The Differential Diagnosis includes, in no particular order and is not limited to:
1. Heart failure
2. Pulmonary embolism
3. Myocardial infarction
4. Chronic obstructive pulmonary disease exacerbation
5. Pneumonia
6. Anemia
7. Anxiety or panic disorder
8. Sinus infection
9. Allergic reactions
10. Angina pectoris
Disposition:
SUMMARY OF ENCOUNTER
The patient was seen in the emergency department for recurrent pneumonia with worsening shortness of breath and chest pain. Given the patients atrial fibrillation and current medication regimen of apixaban (Eliquis), acute coronary syndrome (ACS)
and pulmonary embolism (PE) were considered but are not suspected. D-dimer levels were slightly increased, but PE is not suspected. Hence, the focus was on addressing the pneumonia. Infectious disease consultation recommended treatment with
meropenem 1 gram every eight hours.
MANAGEMENT OF THE PATIENTS CARE WAS DISCUSSED WITH
Consultation with the infectious disease specialist, who recommended meropenem.
PLAN
1. Initiate treatment with meropenem 1 gram every eight hours as recommended by infectious disease.
2. Monitor respiratory status and look for any signs of improvement or deterioration.
3. Continue to manage atrial fibrillation with apixaban (Eliquis).
MEDICATION RECONCILIATION
- Apixaban (Eliquis) for atrial fibrillation.
- Meropenem, 1 gram every eight hours.
MEDICAL DECISION MAKING
-Complexity of Data Reviewed: Chronic conditions affecting care include atrial fibrillation. Differential diagnosis considered: heart failure, pulmonary embolism, myocardial infarction, chronic obstructive pulmonary disease exacerbation, pneumonia,
anemia, anxiety or panic disorder, sinus infection, allergic reactions, angina pectoris.
-Data:
Category 3
- Discussion of management with infectious disease specialist regarding antibiotic treatment with meropenem.
-Risk:
Care significantly affected by Social Determinants of Health: The patients recurrent pneumonia and morbid obesity may play a role in the current health condition and management.
DIAGNOSIS
- Recurrent pneumonia (ICD-10: J18.9)
- Atrial fibrillation (ICD-10: I48.91)
Phy Exam
Physical Exam
Physical Exam:
.
Scores
Heart Failure Risk
Heart Failure Risk Score: Not Applicable
Course
Orders/Labs/Results
Orders:
Orders
09/15/25 15:40
Electrocardiogram (*1) Urgent
Reason for Study: Shortness of Breath
09/15/25 15:41
EKG- Treatment ONCE
09/15/25 15:47
CMP [Comprehensive Metabolic Panel] Urgent
Complete Blood Count/With Diff Urgent
D-Dimer Urgent
NT-proBNP Urgent
Troponin I Urgent
09/15/25 17:33
CR Chest Portable - 1 View Urgent
Comment:
Reason For Exam: cough, short of breath
Reason Study Needs to be Portable: Unable to Transport
09/15/25 19:24
Meropenem [Merrem] 1,000 mg IV NOW STA
09/15/25 19:37
Sterile Water [Sterile Water For Injection] 20 ml .ROUTE .STK-MED
09/15/25 20:10
Admit/Transfer Patient As Directed
Co-Sign Provider:
Level of Care: Inpatient admission
Assign to:: Telemetry
Physician / Group: bogdan
Diagnosis: pneumonia
Reason for Telemetry: Arrhythmia
Date to Stop Telemetry: 09/18/25
Time to Stop Telemetry: 11:00
Reason for Hospitalization: pneumonia
Expected length of stay greater than two midnights?: Yes
ELOS- Estimated Length of Stay in days: 3
I certify the patient meets the requirements for IP care: Yes
PRN Pain Medication Management As Directed
May give lesser potent ordered pain med per pt: Yes
preference::
Protocol:: Medication orders for pain may be administered in a
manner that supports deferring to patient preference
when the pt is:
- Requesting an ordered lesser potent pain medication.
Least to most potent pain medications are defined
as: acetaminophen < NSAID < tramadol < opioids
(morphine, oxycodone, hydromorphone).
- Requesting a lesser dose of the same medication IF
ORDERED.
- Requesting a less intrusive route of administration
if both routes are prescribed by the provider (PO <
IV).
09/15/25 20:12
Code Status As Directed
Resuscitation Status: Full Code
09/15/25 20:17
CT Chest PE Study Stat
Comment:
Reason For Exam: sob
09/18/25 11:00
DC Protocol for Telemetry ONCE
Abnormal Lab Results
09/15/25
15:47
WBC 15.2 H 10^3/uL
(4.8-10.8)
MCV 76.8 L fL
(80.0-94.0)
MCH 24.3 L pg
(27.0-31.0)
MCHC 31.7 L g/dL
(33.0-37.0)
RDW 17.8 H %
(11.5-14.5)
MPV 10.6 H fL
(7.4-10.4)
Abs Immat Gran (auto) 0.1 H 10^3/uL
(0-0.05)
Absolute Neuts (auto) 11.0 H 10^3/uL
(1.4-6.5)
Absolute Monos (auto) 1.3 H 10^3/uL
(0.1-0.6)
Immature Gran % 0.9 H %
(0-0.5)
Lymphocytes % 16.5 L %
(20.5-51.1)
D-Dimer 0.98 H ug/mlFEU
(0.00-0.50)
Sodium 131 L mmol/L
(135-145)
Chloride 86 L mmol/L
(98-107)
Carbon Dioxide 36 H mmol/L
(22-30)
BUN 31 H mg/dl
(9-20)
Glucose 160 H mg/dl
(70-99)
Alkaline Phosphatase 155 H U/L
(38-126)
09/15/25 15:47
09/15/25 15:47
Vital Signs
Initial and Last Documented VS:
Initial Vital Signs
BP
113/64
09/15/25 15:34
Last Documented Vital Signs
Temp Pulse Resp BP Pulse Ox
98.2 F 96 13 113/67 93
09/15/25 15:35 09/15/25 20:15 09/15/25 20:15 09/15/25 20:00 09/15/25 18:15
*Pulse Oximetry
SaO2: 95
Oxygen Mode of Delivery: Room air
Patient hypoxic: no
*Critical Care Note
Total Time (30-74mins, 75-104mins- exclusive of procedures): Not Applicable
ED Attending Note
-
Portions of this chart may have been created with voice recognition software.� Occasional wrong word or��sound alike� substitutions may have occurred due to the inherent limitations of voice recognition software.
Discharge Plan
Departure
Patient Disposition: Admit
Date of Disposition: 09/15/25
Time of Disposition: 19:19
Admit to: Telemetry
Presentation/result/management discussed w/ accepting MD/DO: Hospitalist
Patient with high blood pressure during this ER visit?: Yes
Condition: Fair
Discharge Problem:
PNA (pneumonia), Atrial fibrillation with RVR
Prescriptions:
No Action
acetaminophen 325 mg Tablet
650 mg PO Q6HPRN PRN (Reason: MILD PAIN)
atorvastatin 20 mg Tablet
20 mg PO DAILY
albuterol sulfate 2.5 mg /3 mL (0.083 %) Solution For Nebulization
2.5 mg INHALATION R [id number] PRN (Reason: SOB)
cetirizine 10 mg Tablet
10 mg PO DAILY
cyanocobalamin (vitamin B-12) 1,000 mcg Tablet
1,000 mcg PO DAILY
aspirin 81 mg Tablet,Chewable
81 mg PO DAILY
montelukast 10 mg Tablet
10 mg PO HS
ergocalciferol (vitamin D2) 1,250 mcg (50,000 unit) Capsule
1,250 mcg PO QMONTH
Rx Instructions:
ON THE OF EACH MONTH
albuterol sulfate 90 mcg/actuation Hfa Aerosol Inhaler
2 puff INHALATION R Q4HPRN PRN (Reason: SOB)
fluticasone propionate 50 mcg/actuation [place],Suspension
1 spray INTRANASAL DAILY
Eliquis 5 mg Tablet
5 mg PO HS
fluticasone furoate-vilanterol 100-25 mcg/dose Blister With Device
1 inh INHALATION R DAILY
metolazone 2.5 mg Tablet
2.5 mg PO DAILY Qty: 0 0RF
diltiazem HCl 180 mg Capsule,Extended Release 24hr
180 mg PO DAILY Qty: 0 0RF
metoprolol succinate 50 mg Tablet Extended Release 24 Hr
50 mg PO BID Qty: 0 0RF
miconazole nitrate [Miconazorb AF] 2 % Powder
1 applic topical BID Qty: 0 0RF
Rx Instructions:
GROIN,LLQ,RLQ
spironolactone 25 mg Tablet
25 mg PO DAILY Qty: 0 0RF
potassium chloride [Klor-Con M20] 20 mEq Tablet,Er Particles/Crystals
20 meq PO BID Qty: 0 0RF
magnesium oxide 400 mg (241.3 mg magnesium) Tablet
400 mg PO BID Qty: 0 0RF
pantoprazole 40 mg Tablet,Delayed Release (Dr/Ec)
40 mg PO DAILY Qty: 0 0RF
triamcinolone acetonide 0.1 % Lotion
1 applic topical BID Qty: 0 0RF
Rx Instructions:
BOTH LEGS
furosemide [Lasix] 20 mg tablet
60 mg PO BID Qty: 1 0RF
acetaminophen [Tylenol Extra Strength] 500 mg Tablet
1,000 mg PO BID
magnesium hydroxide [Milk of Magnesia] 400 mg/5 mL Suspension
2,400 mg PO DAILYPRN PRN (Reason: IF NO BM BY 3RD DAY)
bisacodyl [Dulcolax (bisacodyl)] 10 mg Suppository
10 mg [place] DAILYPRN PRN (Reason: if no bm aFTR MOM)
Referrals:
Sushil Gomez DO [Family Provider, Internal Medicine]
Interventions
Interventions:
*Risk Screen - Suicide Last Done: 09/15/25 15:35
*General Assessment Last Done: 09/15/25 15:35
*Neglect/Abuse Screening Last Done: 09/15/25 15:35
*ED COVID-19 Vaccine History Last Done: 09/15/25 15:50
*ED Influenza Vaccine History Last Done: 09/15/25 15:50
[facility] Fall Risk Assessment Tool Last Done: 09/15/25 19:34
ED- Cardiac Assessment Last Done: 09/15/25 15:52
ED- Pulmonary Assessment Last Done: 09/15/25 15:52
Discharge Date and Time
Print Language: ICELANDIC
[2025-09-15] MEDS: MERREM 1000 MG IV (19:38)
--- NOTE | 2025-09-15 19:42 | HPS.HSE ---
Addendum entered and electronically signed by Juan C Marcelo DO 09/15/25 21:57:
Patient seen and examined independently. Agree with findings and plan as set forth by ABDON Odonnell.
Patient is a 65y M with recent admission for pneumonia who presents to ED from [place] complaining of worsening SOB. Patient was treated with IV Unasyn during his hospital stay and discharged on Linezolid for blood culture which were positive for
Staph epi in 1 of 2 sets. He apparently developed a rash due to the Unasyn (as well as cefazolin). Patient felt improved at discharge; however, his symptoms have since returned.
Ass:
Acute Hypoxemic Respiratory Insufficiency
LLL Pneumonia - recurrent / persistent
Paroxysmal Atrial Fibrillation
Chronic HFpEF
COPD
AYLIN on CPAP
Morbid Obesity
Plan:
Admit for further evaluation and treatment.
IV meropenem for now at ID recommendation for recurrent / persistent pneumonia.
Follow for clinical improvement.
Follow I/Os, daily weights.
Continue usual Lasix dose for now - change to IV dosing if ineffective diuresis.
Continue other usual outpatient medications.
Original Note:
Family Physician
-
Family Physician: Sushil Gomez, DO
Chief Complaint
-
sob, wheezing
History of Present Illness
65 year old with PMh for COPD, pneumonia, CHF, HTN, atrial fib, CAD presented to us with sob. he was admitted here with pneumonia and discharged on 09/09. patient feeling better for few days but for past few days, he is very sob. first he noticed
his ear was clogged, then his head got clogged. he noticed congestion. denied cough. he felt feverish but never measured the temperature. he complained of ORANTES. denied dizzy or syncope. denied chest pain. denied abdominal pain, vomiting or diarrhea.
he was nauseous. denied dysuria or hematuria.
chest x ray with pleural effusion and pneumonia. received Meropenem in ER. admitting for further management.
Medical History
Past Medical History
Past Medical History: Reports Other
Additional Past Medical History:
morbid obesity, chornic sinusitis, otitis externa, sciatica, gerd, htn,CHF,atrial fib, iron def anemia, osteoarthritis, sleep apnea, chronic respiratory failure with hyperapnia, cad,COPD, bactremia, pneumonia,tinea vesicula
Past Surgical History: Reports Other
Additional Past Surgical History:
Lymphedematous Panniculectomy
Hernia Surgeries
Social History
Tobacco: Former Smoker
Alcohol: Former
Drug: None
Living: Half-Way
Family History
Family History: Other
Allergies / Home Medications
Allergies reflects when Allergies were last updated in [facility].
Home Medications with original date entered in [facility]
Allergy/Medication List:
Allergies
Allergy/AdvReac Type Severity Reaction Status Date / Time
ampicillin (From Unasyn) Allergy Rash Verified 09/07/25 10:04
cefazolin Allergy Rash Verified 09/07/25 10:04
Penicillins Allergy Unknown as Verified 09/07/25 10:04
a child.
sulbactam (From Unasyn) Allergy Rash Verified 09/07/25 10:04
Home Medications
acetaminophen 325 mg tablet 650 mg PO Q6HPRN PRN MILD PAIN 08/29/25
albuterol sulfate 2.5 mg/3 mL (0.083 %) solution for nebulization 2.5 mg inhalation R [id number] PRN SOB 08/29/25
albuterol sulfate 90 mcg/actuation aerosol inhaler 2 puff inhalation R Q4HPRN PRN SOB 08/29/25
apixaban 5 mg tablet (Eliquis) 5 mg PO HS Blood Clot Prevention/Tx 08/29/25
aspirin 81 mg chewable tablet 81 mg PO DAILY Blood Clot Prevention/Tx 08/29/25
atorvastatin 20 mg tablet 20 mg PO DAILY High Cholesterol 08/29/25
cetirizine 10 mg tablet 10 mg PO DAILY Allergies 08/29/25
cyanocobalamin (vitamin B-12) 1,000 mcg tablet 1,000 mcg PO DAILY Supplement 08/29/25
ergocalciferol (vitamin D2) 1,250 mcg (50,000 unit) capsule 1,250 mcg PO QMONTH Supplement 08/29/25
fluticasone furoate 100 mcg-vilanterol 25 mcg/dose inhalation powder 1 inh inhalation R DAILY Lung/Breathing Issues 08/29/25
fluticasone propionate 50 mcg/actuation nasal spray,suspension 1 spray intranasal DAILY Allergies 08/29/25
montelukast 10 mg tablet 10 mg PO HS Allergies 08/29/25
diltiazem HCl 180 mg capsule,extended release 24 hr 180 mg PO DAILY #0 caps 09/07/25
furosemide 20 mg tablet (Lasix) 60 mg (3 x 20 mg) PO BID #1 tab 09/07/25
magnesium oxide 400 mg (241.3 mg magnesium) tablet 400 mg PO BID #0 tabs 09/07/25
metolazone 2.5 mg tablet 2.5 mg PO DAILY #0 tabs 09/07/25
metoprolol succinate 50 mg tablet,extended release 24 hr 50 mg PO BID #0 tabs 09/07/25
miconazole nitrate 2 % topical powder (Miconazorb AF) 1 applic topical BID #0 grams 09/07/25
pantoprazole 40 mg tablet,delayed release 40 mg PO DAILY #0 tabs 09/07/25
potassium chloride 20 mEq tablet,extended release(part/cryst) (Klor-Con M) 20 meq PO BID #0 tabs 09/07/25
spironolactone 25 mg tablet 25 mg PO DAILY #0 tabs 09/07/25
triamcinolone acetonide 0.1 % lotion 1 applic topical BID #0 mL 09/07/25
acetaminophen 500 mg tablet (Tylenol Extra Strength) 1,000 mg PO BID 09/15/25
bisacodyl 10 mg rectal suppository (Dulcolax (bisacodyl)) 10 mg [place] DAILYPRN PRN if no bm aFTR MOM 09/15/25
magnesium hydroxide 400 mg/5 mL oral suspension (Milk of Magnesia) 2,400 mg PO DAILYPRN PRN IF NO BM BY 3RD DAY 09/15/25
Review of Systems
-
Constitutional: Reports Fatigue and Chills
EENT: Reports No Symptoms
Respiratory: Reports Trouble Breathing
Cardiac: Reports No Symptoms
Abdomen/GI: Reports Nausea
: Reports No Symptoms
Musculoskeletal: Reports No Symptoms
Skin: Reports No Symptoms
Neurological: Reports Headache and Weakness
Endocrine: Reports No Symptoms
Hematologic/Lymphatic: Reports No Symptoms
Psych: Reports No Symptoms
Physical Exam
Vital Signs
Vital Signs
Temp Pulse Resp BP Pulse Ox
98.2 F 104 19 124/79 93
09/15/25 15:35 09/15/25 19:30 09/15/25 19:15 09/15/25 18:00 09/15/25 18:15
Physical Exam
General: Well Developed, Well Nourished and No Apparent Distress
HEENT: NormoCephalic, Moist mucous membranes and Atraumatic
Respiratory: Wheezes and Decreased Breath Sounds
Cardiac: S1/S2 and Regular Rhythm; No Murmur or Rub
GI: Soft, Non Tender, Non Distended and Normal Bowel Sounds; No Organomegaly
Rectal: Deferred by Provider
Musculoskeletal: No Clubbing and No Cyanosis
Skin: Dry
Neuro: AO x 3 and Nonfocal/grossly intact
Psych: Calm
Laboratory Results
-
09/15/25 15:47
09/15/25 15:47
Laboratory Results
Total Bilirubin 0.5 mg/dl (0.2-1.3) 09/15/25 15:47
AST 20 U/L (17-59) 09/15/25 15:47
ALT 17 U/L (0-50) 09/15/25 15:47
Alkaline Phosphatase 155 U/L (38-126) H 09/15/25 15:47
Troponin I < 0.012 ng/ml 09/15/25 15:47
Data Reviewed
-
Diagnostic Radiology: Report Reviewed by me
Lab Data: Labs Reviewed by me
Impression/Plan
-
#acute hypoxic respiratory failure secondary to recurrent pneumonia
-wbc 15.2, patient is afebrile
chest x ray with Left-sided pleural effusion and consolidation (likely pneumonia), slightly improved.
-iv meropenem continued
-Tylenol prn for fever and pain
-continue supplemental oxygen to keep sat>87, wean as tolerated
#elevated D dimer
-obtain CT chest
#rapid atrial fib
-HR in 100's
-Cardizem,metoprolol continued
-eliquis continued
#hxt of CHF
-not in acute exacerbation
-metolazone and Lasix,spironolactone continued
-strict I8O, daily weight
#hxt of tinea versicolor
#wound on LE
-wound care consulted
#COPD without Acute Exacerbation: cont Advair, albuterol PRN
#AYLIN on CPAP Nightly AutoPap, home machine
-Singulair continued
#HLD
-statin continued
#h/o Panniculectomy
#Morbid Obesity due to excess calories, BMI 63.7, affects all aspects of care
#FULL/Eliquis
[2025-09-16 01:10] VITALS: BP 127/79
[2025-09-16] MEDS: LASIX 60 MG PO ×2 (02:19→09:08)
[2025-09-16] MEDS: ELIQUIS 5 MG PO ×3 (02:21→19:54)
[2025-09-16] MEDS: TYLENOL 650 MG PO ×3 (02:23→15:45)
--- NOTE | 2025-09-16 03:20 | PTCARENOTE ---
Pt arrived to unit at 0015 from ED on [facility] Bariatric Bed. No larger bariatric bed available at this time. Patient with various wounds throughout-See Wound Care Intervention. VSS. Patient prefers sleeping on left side-made aware of dangers
involving skin breakdown & pressure injuries associated with not turning-pt verbalizes understanding yet refuses to turn. Bed in lowest position and locked, call [place] within reach, pt has no further concerns at this time.
[2025-09-16] MEDS: MERREM 100 MG IV ×3 (04:48→19:59)
[2025-09-16 06:24] LABS: Hematocrit 42.7 % (39.0-52.0); Hemoglobin 13.0 g/dL (13.0-18.0); Mean Corp Hgb Conc. 30.4 g/dL (33.0-37.0); Mean Corpuscular Volume 79.5 fL (80.0-94.0); Platelet Count 264 10^3/uL (130-400); Red Cell Dist. Width 17.6 % (11.5-14.5)
[2025-09-16 06:52] LABS: Blood Urea Nitrogen 31 mg/dl (9-20); Calcium 8.9 mg/dl (8.4-10.2); Chloride 86 mmol/L (98-107); Glucose 126 mg/dl (70-99); Potassium 3.5 mmol/L (3.5-5.1); Sodium 132 mmol/L (135-145); eGFR > 60.00
[2025-09-16 07:33] LABS: Carbon Dioxide 37 mmol/L (22-30)
[2025-09-16 07:45] VITALS: BP 112/70
[2025-09-16] MEDS: SYMBICORT 160/4.5 MCG INHALER INH (07:49)
[2025-09-16] MEDS: PROTONIX 40 MG PO (09:08)
[2025-09-16] MEDS: ZAROXOLYN 2.5 MG PO (09:08)
[2025-09-16] MEDS: TOPROL XL 50 MG PO (09:09)
[2025-09-16] MEDS: LOW STRENGTH ASPIRIN 81 MG PO (09:09)
[2025-09-16] MEDS: CARDIZEM CD 180 MG PO (09:09)
[2025-09-16] MEDS: KCL 20 MEQ PO ×2 (09:09→19:53)
[2025-09-16] MEDS: ALDACTONE 25 MG PO (09:09)
[2025-09-16] MEDS: TRIAMCINOLONE ACETONIDE 0.1% 1 APPLIC TOPICAL ×2 (09:10→19:55)
[2025-09-16] MEDS: DESENEX/MITRAZOL/ZEASORB 1 APPLIC TOPICAL ×2 (09:10→19:56)
[2025-09-16] MEDS: LIPITOR 20 MG PO (09:10)
[2025-09-16 11:30] VITALS: BP 113/72
--- NOTE | 2025-09-16 12:09 | CON.ID ---
Addendum entered and electronically signed by Mary Berrios MD 09/16/25 14:52:
I personally performed a history and physical exam of the patient and discussed management with the resident. I reviewed the resident's note and agree with most of the documented findings and plan of care HPI/CC.
65-year-old male with BMI 76, bedbound, asthma/COPD, chronic sinusitis, well-known to me from recent [id number]/16-09/09 with pneumonia, uncomplicated MSSA bacteremia treated with cefazolin then changed to Unasyn due to rash. Rash worse on
Unasyn and therefore he was transitioned to oral linezolid x 6 more days to complete a total 14-day course of antibiotic. He was discharged back to [facility]. He returned to the hospital 09/15 due to shortness of breath. Patient's respiratory
symptoms were improving/resolving. However then developed acute shortness of breath, difficulty breathing, without cough. No fevers or chills. Has chronic sinusitis stable. No diarrhea. No urine symptoms. No abdominal pain. The previous rash
has resolved. CT chest no PE, the left upper lobe consolidation has improved. He is currently on meropenem.
O: Afebrile, O2 sat 95�100 room air
Chest: Clear to auscultation bilaterally
CV: Irregular irregular S1-S2
Ext: Lymphedema
Skin: no rash
Neuro A+O x 3
A/P
# SOB
# Leukocytosis ? chronic
# Recent ARNOLD PNA and uncomplicated MSSA bacteremia completed 14d abx on 09/12.
- CT chest ARNOLD consolidation has improved
Doubt new pneumonia.
- Not consistent with viral PNA.
- Of note, patient always lay on left side, including meal time - ?aspiration risk. He denies cough with meals.
- Check am procalcitonin to rule out bacterial PNA. If neg, dc abx.
# Conditions present on admission
Asthma/COPD
Atrial fibrillation on Eliquis
HFpEF
Urine incontinence
Obstructive sleep apnea on CPAP
Class III obesity BMI 76
Chronic sinusitis
Abdominal lymphedematous panniculectomy (25 lbs) at [facility] (07/2025)
Hernia repair
Bed-bound since 'dropped from a jamar-lift at a facility'
Original Note:
Consultation
-
Date/Time Consultation Requested: 09/16/25
Date/Time Consultation Performed: 09/16/25
Requesting Provider: Dr. Justin Vargas
Performing Provider: Dr. Mary Berrios
Reason for Consultation: Pneumonia
Chief Complaint / Past History
Chief Complaint
Pneumonia like symptoms
History of Present Illness
65-year-old male who presents to the emergency department with shortness of breath associated with ear fullness, chest congestion. Not associated with cough, fever, chills, nausea, vomiting, abdominal pain, dysuria, hematuria. Chest x-ray and CT
both done in the ER and they both showed a left upper lobe consolidation consistent with pneumonia. Vitals on admission are temperature of 98.2, pulse of 96, respiratory rate 13, blood pressure 113 x 67, oxygen saturation of 93. Nasal swab for
influenza is negative microbiology culture pending. Previously had pneumonia on previous admission with culture positive Staph aureus and Staph epidermidis. Was discharged on linezolid to [facility].
Past History
Additional Past Medical History:
COPD, pneumonia, CHF, hypertension, atrial fibrillation, CAD
Additional Past Surgical History:
Lymphedematous Panniculectomy, Hernia Surgeries
Allergy History:
ampicillin (From Unasyn) Allergy (Verified 09/07/25 10:04)
Rash
cefazolin Allergy (Verified 09/07/25 10:04)
Rash
Penicillins Allergy (Verified 09/07/25 10:04)
Unknown as a child.
sulbactam (From Unasyn) Allergy (Verified 09/07/25 10:04)
Rash
Medications Reviewed: Yes
Current Antibiotics:
Meropenem
Social History
Tobacco: Former Smoker
Alcohol: Former
Drug: None
Personal:
Living: With Family
Family History
Family History: Not Pertinent
Review of Systems
Review of Systems
General: Negative Fever or Chills
Cardiovascular: Negative Chest Pain or Dyspnea
Respiratory: Dyspnea; Negative Cough, Cyanosis or Hemoptysis
Gasteroenterology: Negative Nausea, Vomiting or Diarrhea
Genital / Urological: Negative Dysuria
Endocrine: Negative Weight Change or Weakness
Musculoskeletal: Negative Joint Pain or Joint Swelling
Skin / Hair / Nails: Negative Rash
Neurological: Negative Headache
Vital Signs
Temp Pulse Resp BP Pulse Ox
97.7 F 101 16 112/70 94
09/16/25 07:45 09/16/25 09:09 09/16/25 07:45 09/16/25 09:09 09/16/25 10:26
Physical Exam
Physical Exam
Constitutional: No Acute Distress and Other (Morbidly obese)
Head: Normocephalic
Lymph Nodes: Negative Lymphadenopathy
Cardiovascular: Regular Rate and S1/S2
Pulmonary: Clear and Symmetric
Gastrointestinal: Soft, Non Tender, Non Distended and Normal Bowel Sounds
Extremities: Edema (Bilateral lower extremity edema); Negative Splinter Hemorrhage or Janeway Lesions
Musculoskeletal: Negative Joint Swelling or Joint Effusion
Wound: None (There are wounds covered with bandages on his right elbow, right heel.)
Neurological: AO x 3
Psychological: Calm
Lab / Diagnostic Study Results
09/16/25 06:08
09/16/25 06:08
Abs Immat Gran (auto) 0.1 10^3/uL (0-0.05) H 09/15/25 15:47
Absolute Neuts (auto) 11.0 10^3/uL (1.4-6.5) H 09/15/25 15:47
Absolute Lymphs (auto) 2.5 10^3/uL (1.2-3.4) 09/15/25 15:47
Absolute Monos (auto) 1.3 10^3/uL (0.1-0.6) H 09/15/25 15:47
Absolute Basos (auto) 0.1 10^3/uL (0-0.2) 09/15/25 15:47
Immature Gran % 0.9 % (0-0.5) H 09/15/25 15:47
Neutrophils % 72.1 % (42.2-75.2) 09/15/25 15:47
Lymphocytes % 16.5 % (20.5-51.1) L 09/15/25 15:47
Monocytes % 8.6 % (1.7-9.3) 09/15/25 15:47
Eosinophils % 1.0 % (0-6) 09/15/25 15:47
Basophils % 0.9 % (0-2) 09/15/25 15:47
Microbiology Results
Micro:
09/16/25 06:09 Influenza Types A & B (JAMES) - Final
Nasal Swab Negative for Influenza A & B, NAAT
Negative results must be combined with clinical observations
and patient history.
Nucleic Acid Amplification test (NAAT)performed on the
[employer] platform.
09/16/25 00:47 MRSA Screen - Pending
Nose
Chest x-ray on 09/15/2025:
IMPRESSION:
Left-sided pleural effusion and consolidation (likely pneumonia), slightly improved.
Chest CT on 09/15/2025:
IMPRESSION:
1. No evidence of pulmonary embolism.
2. Left upper lobe consolidation consistent with pneumonia, slightly improved.
Assessment / Plan
Shortness of breath
- possibly due to left sided pneumonia hospital-acquired vs aspiration pneumonia
-Confirmed on both chest x-ray and CT scan this admission, and CT scan shows that the pneumonia is slightly improving from previous admission
-Patient diagnosed with pneumonia last admission and was discharged on linezolid to [facility]
- Will not get blood cultures because patient has no fever, chills, cough, sputum production, unstable vitals, and only has mild leukocytosis (which is always chronically elevated). Physical examination the lungs is benign for any positive
pertinent findings.
- Influenza negative, MRSA screen pending,
- Continue the meropenem as patient is allergic to ampicillin, penicillins, sulbactam
- Ordered procalcitonin to help us differentiate if this is a viral or bacterial cause. If negative will stop antibiotics.
-Will consider a speech and swallow evaluation
- Continue to trend temperature, CBC, CMP
--- NOTE | 2025-09-16 13:43 | WOUNDNOTE ---
[facility] RN note: Patient admitted with worsening SOB, s/p hospitalization for pneumonia
See H&P for complete history.
PMH: Acute Hypoxemic Respiratory Insufficiency
LLL Pneumonia - recurrent / persistent
Paroxysmal Atrial Fibrillation
Chronic HFpEF
COPD
AYLIN on CPAP
Morbid Obesity
Wound Location and type/assessment: Patient admitted with fungal appearing skin to groin and abdomen, healing burn with open area to left lateral (per patient report) vs stage 2 PI surrounded by chronic appearing discoloration. Blood blisters and
raised scabs to toes (see worklist), scab on right lower leg. Stretch prajapati noted under right arm. Patient declined moving right arm for assessment. Patient has a large pannus and requires 2 people to turn body and pannus. Patient prefers to lay on
left side and refuses to turn for staff. He did turn briefly for full assessment of pannus, but then insisted on laying on his left side again. He states he cannot tolerate being on his right side because it is 'not comfortable'. Sacrum and heels
intact.
Appetite: Good
Pressure redistribution devices in place: Bariatric air bed
Plan: Desenex has already been ordered for fungal appearing skin to groin and abdomen. Educated patient about need to off-load abdomen and left hip to promote healing of left lateral abdominal wound and to prevent further skin injury. Patient said
again he does not like laying on right side and said 'It's always been this way. I like being on my left side.' This jingle writer asked, ' Do you understand the risks we discussed regarding your skin if your refuse to turn.' Patient stated, 'Yes I
understand the risks and I will sign a waiver if you want me to.' Reviewed off-loading of heels but again patient reports that was not comfortable. TT. Dr. Parker booker update. Will confirm orders with hospitalist and update nurse. Updated care plan
and will follow as needed.
Note to case management of equipment requested for discharge:
Recommend follow up at wound care center upon discharge.
[2025-09-16] MEDS: LIDOCAINE 4% PATCH 1 PATCH TOPICAL (13:54)
[2025-09-16 13:57] VITALS: BMI 76.2
--- NOTE | 2025-09-16 14:47 | W.PN.HOSP.TC ---
Today's Communication/Plan
-
IV antibiotics
ID consult
Assessment / Plan
Assessment / Plan
65M w/morbid obesity, AYLIN on CPAP and A-Fib p/w SOB.
SOB, possibly secondary to LLL Pneumonia
Recurrent, imaging shows pneumonia slightly improving
Last admission MSSA bacteremia, treated with cefazolin which was DC'd due to rash, then treated with Unasyn which was DC'd due to rash, then changed to linezolid p.o. twice daily
Empirically placed on IV Merrem due to allergy profile
ID consulted, appreciate recs
Pro-Burke pending
Chronic HFpEF
Echo was technically limited due to body habitus
Not hypoxic
Hold off SGLT2i due to infection
Continue diuresis with oral Lasix, metolazone
Continue beta-dea, aspirin, statin, spironolactone
Monitor I's and O's, goal -1 L.
Paroxysmal Atrial Fibrillation
HR controlled
- Continue Eliquis BID
Continue beta-dea, diltiazem
Outpatient cardiology follow-up
COPD without Acute Exacerbation
- Continue current inhaled medications / PRN nebs.
- No wheezing appreciated on exam.
AYLIN on CPAP
- Nightly AutoPap, home machine
s/p Panniculectomy
- Stable. Surgical site appears well-healed. No current issues.
Morbid Obesity
due to excess calories
- BMI > 60.
- Affects all aspects of care.
PT/OT recommends SNF, awaiting acceptance and auth
DVT Prophylaxis: On Eliquis
Code Status: Full
Anticipated Discharge: 24 - 48 hours
Subjective/Interval History
-
Date of Service: September 16, 2025
Patient states he feels about the same, discussed with RN and PT
Objective Data
-
Labs:
Laboratory Results
09/16/25
06:08
WBC 14.8 H
Hgb 13.0
Hct 42.7
Plt Count 264
Sodium 132 L
Potassium 3.5
Chloride 86 L
Carbon Dioxide 37 H
BUN 31 H
Creatinine 0.7
Glucose 126 H
Calcium 8.9
Vital Signs:
Vital Signs
Temp Pulse Resp BP Pulse Ox
97.6 F 93 16 113/72 95
09/16/25 11:30 09/16/25 11:30 09/16/25 11:30 09/16/25 11:30 09/16/25 11:30
I&O
09/15/25 09/16/25 09/17/25
06:59 06:59 06:59
Intake Total 100 / 100 630 / 630
Output Total 1750 / 1750
Balance 100 / 100 -1120 / -1120
Review of Systems
-
All other systems: Reviewed and negative
Physical Exam
-
General: No Apparent Distress, Conversant and Morbidly Obese
HEENT: Anicteric and PERRLA
Respiratory: Clear to Auscultation and Decreased Breath Sounds; Negative Wheezes or Rales
Cardiac: S1/S2 and Irregular Rhythm; Negative Murmur
GI: Soft, Nontender, Nondistended and Normal Bowel Sounds
Musculoskeletal: No Edema
Skin: Warm and Dry; Negative Rash, Ulcers or Lesions
Neuro: Awake and AO x 3
Psych: Calm
Data Reviewed
-
CT Scan: Report Reviewed by me and Discussed with Physician
Labs: Labs Reviewed by me, Discussed with Physician and Discussed with Patient
--- NOTE | 2025-09-16 15:24 | WOUNDNOTE ---
RIGHT UNDER ARM AND SIDE (STRETCH TOMAS)
--- NOTE | 2025-09-16 15:25 | WOUNDNOTE ---
RIGHT ELBOW ABRASION POA
--- NOTE | 2025-09-16 15:26 | WOUNDNOTE ---
RIGHT LOWER LEG SCAB
--- NOTE | 2025-09-16 15:26 | WOUNDNOTE ---
RIGHT TOES POA
--- NOTE | 2025-09-16 15:27 | WOUNDNOTE ---
RIGHT 2nd and 3rd TOES
--- NOTE | 2025-09-16 15:28 | WOUNDNOTE ---
LEFT LATERAL ABDOMEN
[2025-09-16 15:35] VITALS: BP 107/61
[2025-09-16 19:17] LABS: Hepatitis C Antibody Negative (Negative)
[2025-09-16] MEDS: SYMBICORT 160/4.5 MCG INHALER 2 PUFF INH (19:21)
[2025-09-16 19:23] VITALS: BP 99/60
[2025-09-16] MEDS: LASIX PO (19:54)
[2025-09-16] MEDS: TOPROL XL PO (19:55)
[2025-09-16] MEDS: REMOVE LIDOCAINE PATCH 1 PATCH REMOVE (19:56)
[2025-09-16] MEDS: SINGULAIR 10 MG PO (22:12)
[2025-09-16 23:00] VITALS: BP 137/71
[2025-09-17] MEDS: MERREM 100 MG IV (04:29)
[2025-09-17 05:49] LABS: Hematocrit 42.6 % (39.0-52.0); Hemoglobin 13.5 g/dL (13.0-18.0); Mean Corp Hgb Conc. 31.7 g/dL (33.0-37.0); Mean Corpuscular Volume 78.6 fL (80.0-94.0); Platelet Count 252 10^3/uL (130-400); Red Cell Dist. Width 17.4 % (11.5-14.5)
[2025-09-17 06:00] VITALS: BMI 76.4
[2025-09-17 06:15] LABS: Blood Urea Nitrogen 35 mg/dl (9-20); Calcium 8.9 mg/dl (8.4-10.2); Chloride 84 mmol/L (98-107); Estimated Creatinine Clearance > 125 ml/min; Glucose 133 mg/dl (70-99); Potassium 3.4 mmol/L (3.5-5.1); Sodium 131 mmol/L (135-145); eGFR > 60.00
[2025-09-17 06:22] LABS: Procalcitonin 0.10 ng/ml (0.0-0.25)
[2025-09-17 06:39] LABS: Carbon Dioxide 40 mmol/L (22-30)
[2025-09-17 07:00] VITALS: BP 116/77
[2025-09-17] MEDS: SYMBICORT 160/4.5 MCG INHALER INH (07:22)
[2025-09-17] MEDS: LIDOCAINE 4% PATCH 1 PATCH TOPICAL (09:52)
[2025-09-17] MEDS: LASIX 60 MG PO ×2 (09:52→20:37)
[2025-09-17] MEDS: TOPROL XL 50 MG PO ×2 (09:53→20:37)
[2025-09-17] MEDS: ZAROXOLYN 2.5 MG PO (09:53)
[2025-09-17] MEDS: LOW STRENGTH ASPIRIN 81 MG PO (09:53)
[2025-09-17] MEDS: LIPITOR 20 MG PO (09:53)
[2025-09-17] MEDS: CARDIZEM CD 180 MG PO (09:53)
[2025-09-17] MEDS: PROTONIX 40 MG PO (09:53)
[2025-09-17] MEDS: ALDACTONE 25 MG PO (09:53)
[2025-09-17] MEDS: KCL 20 MEQ PO ×2 (09:53→20:37)
[2025-09-17] MEDS: ELIQUIS 5 MG PO ×2 (09:53→20:36)
[2025-09-17] MEDS: DESENEX/MITRAZOL/ZEASORB 1 APPLIC TOPICAL ×2 (09:54→20:38)
[2025-09-17] MEDS: TYLENOL 650 MG PO ×2 (09:54→20:41)
[2025-09-17] MEDS: SYMBICORT 160/4.5 MCG INHALER 2 PUFF INH (09:57)
[2025-09-17] MEDS: TRIAMCINOLONE ACETONIDE 0.1% 1 APPLIC TOPICAL ×2 (09:57→21:56)
[2025-09-17 11:00] VITALS: BP 112/61
[2025-09-17 11:10] VITALS: BMI 76.4
[2025-09-17 11:18] LABS: Venous Blood Gas B.E. 20.5 mmol/L (-4 to +4); Venous Blood Gas O2 Sat % 86.3 %
--- NOTE | 2025-09-17 12:40 | W.PN.HOSP.TC ---
Today's Communication/Plan
-
Pulm consult
Antibiotics stopped
Assessment / Plan
Assessment / Plan
65M w/morbid obesity, AYLIN on CPAP and A-Fib p/w SOB.
SOB
CO2 retention
COPD
AYLIN on CPAP (autopap)
imaging shows that previous pneumonia is slightly improving
No E/O CHF exacerbation
BMP bicarb 40, concern for CO2 retention, VBG ordered, reviewed, pCO2 65
Patient is compliant with his CPAP at night
Patient prefers Advair so will change, also asks for Dulera, does not appear to be formulary
Consulted pulmonology
Recent pneumonia
Last admission MSSA bacteremia, treated with cefazolin which was DC'd due to rash, then treated with Unasyn which was DC'd due to rash, then changed to linezolid p.o. twice daily
Empirically placed on IV Merrem due to allergy profile
ID consulted, appreciate recs, CT not showing worsening pneumonia
They have discontinued Merrem
Pro-Burke was low
Chronic HFpEF
Echo was technically limited due to body habitus
Not hypoxic, no edema, no effusions on CT, appears compensated
Resume SGLT2i
Continue diuresis with oral Lasix, metolazone
Continue beta-dea, aspirin, statin, spironolactone
Monitor I's and O's, goal -1 L.
Paroxysmal Atrial Fibrillation
HR controlled
- Continue Eliquis BID
Continue beta-dea, diltiazem
Outpatient cardiology follow-up
s/p Panniculectomy
- Stable. Surgical site appears well-healed. No current issues.
Morbid Obesity
due to excess calories
- BMI > 60.
- Affects all aspects of care.
DVT Prophylaxis: On Eliquis
Code Status: Full
Anticipated Discharge: 24 - 48 hours
Subjective/Interval History
-
Date of Service: September 17, 2025
Patient reports he is still feeling poorly, very short of breath, he notes it he prefers Advair and Dulera to his current inhalers, he reports compliance with CPAP
Objective Data
-
Labs:
Laboratory Results
09/17/25
05:38
WBC 15.5 H
Hgb 13.5
Hct 42.6
Plt Count 252
Sodium 131 L
Potassium 3.4 L
Chloride 84 L
Carbon Dioxide 40 H
BUN 35 H
Creatinine 0.8
Glucose 133 H
Calcium 8.9
Vital Signs:
Vital Signs
Temp Pulse Resp BP Pulse Ox
98.3 F 102 16 112/61 97
09/17/25 11:00 09/17/25 11:00 09/17/25 11:00 09/17/25 11:00 09/17/25 11:00
I&O
09/16/25 09/17/25 09/18/25
06:59 06:59 06:59
Intake Total 100 / 100 1210 / 1210
Output Total 2825 / 2825
Balance 100 / 100 -1615 / -1615
Review of Systems
-
All other systems: Reviewed and negative
Physical Exam
-
General: No Apparent Distress, Conversant and Morbidly Obese
HEENT: Anicteric and PERRLA
Respiratory: Clear to Auscultation and Decreased Breath Sounds; Negative Wheezes or Rales
Cardiac: S1/S2 and Irregular Rhythm; Negative Murmur
GI: Soft, Nontender, Nondistended and Normal Bowel Sounds
Musculoskeletal: No Edema
Skin: Warm and Dry; Negative Rash, Ulcers or Lesions
Neuro: Awake and AO x 3
Psych: Calm
Data Reviewed
-
CT Scan: Report Reviewed by me, Discussed with Physician and Discussed with Patient
Labs: Labs Reviewed by me, Discussed with Physician and Discussed with Patient
--- NOTE | 2025-09-17 12:49 | W.PN.ID1 ---
Addendum entered and electronically signed by Mary Berrios MD 09/17/25 13:17:
I saw and evaluated the patient. I reviewed the resident�s note and agree with findings and plan as documented in the resident�s note with exceptions (in bold).
A/P
S: SOB better. Has chest 'gurgling'. No sputum. No diarrhea.
O: Afebrile
A/P:
# SOB - improving
# Leukocytosis - chronic
# Recent ARNOLD PNA and uncomplicated MSSA bacteremia completed 14d abx on 09/12.
- CT chest ARNOLD consolidation has improved
- Procalcitonin 0.10, ruled out bacterial PNA.
- DISCONTINUE meropenem.
ID will sign off
# Conditions present on admission
Asthma/COPD
Atrial fibrillation on Eliquis
HFpEF
Urine incontinence
Obstructive sleep apnea on CPAP
Class III obesity BMI 76
Chronic sinusitis
Abdominal lymphedematous panniculectomy (25 lbs) at [facility] (07/2025)
Hernia repair
Bed-bound since 'dropped from a jamar-lift at a facility'
Original Note:
Documented by User: Remy Garcia MD, Resident 09/17/25 12:58
Date of Service
Date of Service: September 17, 2025
Today's Communication
Shortness of breath (resolved)
- New pneumonia is ruled out with negative procal, viral penumonia/aspiration pneumonia- does not match clinical picture ( no cough alvaro when eating, dyspnea, pleuritic chest pain, fever, chills, symptoms worsening when lying flat)
- Pneumonia ( resolving) Confirmed on both chest x-ray and CT scan this admission, and CT scan shows that the pneumonia is slightly improving from previous admission
-Patient diagnosed with pneumonia last admission and was discharged on linezolid to [facility]
- Will not get blood cultures because patient has no fever, chills, cough, sputum production, unstable vitals, and only has mild leukocytosis (which is always chronically elevated). Physical examination the lungs is benign for any positive
pertinent findings.
- Influenza negative, MRSA screen pending,
- Continue the meropenem as patient is allergic to ampicillin, penicillins, sulbactam
- Procalcitonin is negative, so we will d/c antibiotics
- Continue to trend temperature, CBC
- Will sign off
Assessment / Plan
Shortness of breath
- possibly due to left sided pneumonia hospital-acquired vs aspiration pneumonia
-Confirmed on both chest x-ray and CT scan this admission, and CT scan shows that the pneumonia is slightly improving from previous admission
-Patient diagnosed with pneumonia last admission and was discharged on linezolid to [facility]
- Will not get blood cultures because patient has no fever, chills, cough, sputum production, unstable vitals, and only has mild leukocytosis (which is always chronically elevated). Physical examination the lungs is benign for any positive
pertinent findings.
- Influenza negative, MRSA screen pending,
- Continue the meropenem as patient is allergic to ampicillin, penicillins, sulbactam
- Ordered procalcitonin to help us differentiate if this is a viral or bacterial cause. If negative will stop antibiotics.
-Will consider a speech and swallow evaluation
- Continue to trend temperature, CBC, CMP
Chief Complaint
-: Other (shortness of breath)
Subjective / Review of Systems
Review of Systems: No Fever, No Chills, No Headache, No Stiff Neck, No Cough, No Sputum Production, No Chest Pain, No Palpitations, No Nausea, No Vomiting, No Diarrhea, No Dysuria and No Skin Rash
Vital Signs / Physical Exam
Vital Signs
Vital Signs
Temp Pulse Resp BP Pulse Ox
98.3 F 102 16 112/61 97
09/17/25 11:00 09/17/25 11:00 09/17/25 11:00 09/17/25 11:00 09/17/25 11:00
Physical Exam
Constitutional: No Acute Distress and Obese
Head: Normocephalic
Lymph Nodes: Negative Lymphadenopathy
Cardiovascular: Regular Rate and S1/S2
Pulmonary: Clear and Symmetric
Gastrointestinal: Soft, Non Tender, Non Distended and Normal Bowel Sounds
Extremities: Edema (bilateral lower extremity edema); Negative Splinter Hemorrhage or Janeway Lesions
Musculoskeletal: Negative Joint Swelling or Joint Effusion
Skin: Warm and Dry
Wound: Other (There are wounds covered with bandages on his right elbow, right heel. No active bleeding or drainage.)
Neurological: AO x 3
Psychological: Calm
Objective Data
Lab Data
Lab Results
09/17/25 05:38
09/17/25 05:38
Estimated Creat Clear > 125 ml/min 09/17/25 05:38
Total Bilirubin 0.5 mg/dl (0.2-1.3) 09/15/25 15:47
AST 20 U/L (17-59) 09/15/25 15:47
ALT 17 U/L (0-50) 09/15/25 15:47
Alkaline Phosphatase 155 U/L (38-126) H 09/15/25 15:47
Most recent labs reviewed.
Micro Results:
09/16/25 00:47 MRSA Screen - Final
Nose No Methicillin Resistant Staphylococcus aureus isolated.
09/16/25 06:09 Influenza Types A & B (JAMES) - Final
Nasal Swab Negative for Influenza A & B, NAAT
Negative results must be combined with clinical observations
and patient history.
Nucleic Acid Amplification test (NAAT)performed on the
[employer] platform.
Chest x-ray on 09/15/2025:
IMPRESSION:
Left-sided pleural effusion and consolidation (likely pneumonia), slightly improved.
Chest CT on 09/15/2025:
IMPRESSION:
1. No evidence of pulmonary embolism.
2. Left upper lobe consolidation consistent with pneumonia, slightly improved.

Documented by User: Mary Berrios MD 09/17/25 13:10
Assessment / Plan
Shortness of breath
- possibly due to left sided pneumonia hospital-acquired vs aspiration pneumonia
-Confirmed on both chest x-ray and CT scan this admission, and CT scan shows that the pneumonia is slightly improving from previous admission
-Patient diagnosed with pneumonia last admission and was discharged on linezolid to [facility]
- Will not get blood cultures because patient has no fever, chills, cough, sputum production, unstable vitals, and only has mild leukocytosis (which is always chronically elevated). Physical examination the lungs is benign for any positive
pertinent findings.
- Influenza negative, MRSA screen pending,
- Discontinue the meropenem.
- Ordered procalcitonin to help us differentiate if this is a viral or bacterial cause. If negative will stop antibiotics.
-Will consider a speech and swallow evaluation
- Continue to trend temperature, CBC, CMP
--- NOTE | 2025-09-17 14:20 | CON.PUL ---
Consultation
Consultation Request
Date/Time Consultation Requested: 09/17/2025
Date/Time Consultation Performed: 09/17/2025
Requesting Provider: Dr. Canales
Performing Provider: Dr. Ashu Reyes
Reason for Consultation: COPD/chronic hypercapnic respiratory failure
Medical History
-
Chief Complaint: SOB
History of Present Illness:
65-year-old man with history of obesity BMI of 76, bedbound, asthma/COPD, chronic sinusitis, recently hospitalized from 08 19-09 09 2025 with pneumonia, MSSA bacteremia treated with antibiotics.
Discharged back to [facility].
Return to the hospital 09/15/2025 complaining of shortness of breath. No reports of coughing or phlegm production. No reports of fevers or chills.
No nausea or vomiting.
CT of the chest showed no evidence for pulmonary embolism but a left upper lobe consolidation which is improving.
CT chest showed consolidation. On meropenem for now-suspicion for repeat infection not very high.
-
Patient is on obstructive patient has history of obstructive sleep apnea on AutoPap at home.
VBG performed and showed suggestion of some degree of hypercapnia.
He is compliant with CPAP
He is compliant with inhalers
Currently not bronchospastic
Not on oxygen therapy
-
PMHx: morbid obesity, chronic HFpEF, paroxysmal A-fib on Eliquis, history of COPD on Breo, AYLIN on CPAP, GERD, history of asthma, iron deficiency anemia, DDD, chronic sinusitis, former tobacco smoker
PSHx: lymphedematous panniculectomy, hernia surgeries
Past Medical History
Past Medical History: Other (See assessment and plan)
Past Surgical History: Other (Above as per HPI)
Social History
Tobacco: Former Smoker (Quit 15 years ago)
Alcohol: None
Drug: None
Living: Assisted
Family History
Family History: Reviewed & Not Pertinent
Allergies / Home Medications
Allergies
Allergy/AdvReac Type Severity Reaction Status Date / Time
ampicillin (From Unasyn) Allergy Rash Verified 09/07/25 10:04
cefazolin Allergy Rash Verified 09/07/25 10:04
Penicillins Allergy Unknown as Verified 09/07/25 10:04
a child.
sulbactam (From Unasyn) Allergy Rash Verified 09/07/25 10:04
Home Medications
�Medication �Instructions �Recorded �Confirmed �Last Taken �Type
acetaminophen 325 mg tablet 650 mg PO Q6HPRN PRN MILD PAIN 08/29/25 09/15/25 Unknown History
albuterol sulfate 2.5 mg/3 mL 2.5 mg inhalation R [id number] PRN SOB 08/29/25 09/15/25 Unknown History
(0.083 %) solution for nebulization
albuterol sulfate 90 mcg/actuation 2 puff inhalation R Q4HPRN PRN SOB 08/29/25 09/15/25 Unknown History
aerosol inhaler
apixaban 5 mg tablet (Eliquis) 5 mg PO HS Blood Clot Prevention/Tx 08/29/25 09/15/25 Unknown History
aspirin 81 mg chewable tablet 81 mg PO DAILY Blood Clot 08/29/25 09/15/25 Unknown History
Prevention/Tx
atorvastatin 20 mg tablet 20 mg PO DAILY High Cholesterol 08/29/25 09/15/25 Unknown History
cetirizine 10 mg tablet 10 mg PO DAILY Allergies 08/29/25 09/15/25 Unknown History
cyanocobalamin (vitamin B-12) 1,000 mcg PO DAILY Supplement 08/29/25 09/15/25 Unknown History
1,000 mcg tablet
ergocalciferol (vitamin D2) 1,250 1,250 mcg PO QMONTH Supplement 08/29/25 09/15/25 Unknown History
mcg (50,000 unit) capsule
fluticasone furoate 100 1 inh inhalation R DAILY 08/29/25 09/15/25 Unknown History
mcg-vilanterol 25 mcg/dose Lung/Breathing Issues
inhalation powder
fluticasone propionate 50 1 spray intranasal DAILY Allergies 08/29/25 09/15/25 Unknown History
mcg/actuation nasal
spray,suspension
montelukast 10 mg tablet 10 mg PO HS Allergies 08/29/25 09/15/25 Unknown History
diltiazem HCl 180 mg 180 mg PO DAILY #0 caps 09/07/25 09/15/25 Unknown Rx
capsule,extended release 24 hr
furosemide 20 mg tablet (Lasix) 60 mg (3 x 20 mg) PO BID #1 tab 09/07/25 09/15/25 Unknown Rx
magnesium oxide 400 mg (241.3 mg 400 mg PO BID #0 tabs 09/07/25 09/15/25 Unknown Rx
magnesium) tablet
metolazone 2.5 mg tablet 2.5 mg PO DAILY #0 tabs 09/07/25 09/15/25 Unknown Rx
metoprolol succinate 50 mg 50 mg PO BID #0 tabs 09/07/25 09/15/25 Unknown Rx
tablet,extended release 24 hr
miconazole nitrate 2 % topical 1 applic topical BID #0 grams 09/07/25 09/15/25 Unknown Rx
powder (Miconazorb AF)
pantoprazole 40 mg tablet,delayed 40 mg PO DAILY #0 tabs 09/07/25 09/15/25 Unknown Rx
release
potassium chloride 20 mEq 20 meq PO BID #0 tabs 09/07/25 09/15/25 Unknown Rx
tablet,extended
release(part/cryst) (Klor-Con M)
spironolactone 25 mg tablet 25 mg PO DAILY #0 tabs 09/07/25 09/15/25 Unknown Rx
triamcinolone acetonide 0.1 % 1 applic topical BID #0 mL 09/07/25 09/15/25 Unknown Rx
lotion
acetaminophen 500 mg tablet 1,000 mg PO BID Pain 09/15/25 09/15/25 Unknown History
(Tylenol Extra Strength)
bisacodyl 10 mg rectal suppository 10 mg DE DAILYPRN PRN if no bm 09/15/25 09/15/25 Unknown History
(Dulcolax (bisacodyl)) aFTR MOM
magnesium hydroxide 400 mg/5 mL 2,400 mg PO DAILYPRN PRN IF NO BM 09/15/25 09/15/25 Unknown History
oral suspension (Milk of Magnesia) BY 3RD DAY
Review of Systems
-
History Source: Patient
All other systems: Negative unless noted
Vitals / Labs / Diagnostic Testing
Vital Signs
Temp Pulse Resp BP Pulse Ox
98.3 F 102 16 112/61 97
09/17/25 11:00 09/17/25 11:00 09/17/25 11:00 09/17/25 11:00 09/17/25 11:00
Lab Data
09/17/25 05:38
09/17/25 05:38
Microbiology
09/16/25 00:47 Nose MRSA Screen - Final
No Methicillin Resistant Staphylococcus aureus isolated.
09/16/25 06:09 Nasal Swab Influenza Types A & B (JAMES) - Final
Negative for Influenza A & B, NAAT
Negative results must be combined with clinical observations
and patient history.
Nucleic Acid Amplification test (NAAT)performed on the
[employer] NOW platform.
Diagnostic Testing:
Physical Exam
-
HEENT: Normocephalic
Cardiovascular: S1/S2
Respiratory: Non-Labored Respirations
GI: Soft and Distended (Obese)
Neurology: Awake and Alert
Skin: Warm
General: Comfortable
Assessment
-
65-year-old male morbidly obese bed-bound male former tobacco smoker with a past medical history of chronic HFpEF, COPD, asthma, paroxysmal A-fib on Eliquis, AYLIN on CPAP, GERD, KELLY, DDD, and chronic sinusitis who presents with shortness of breath. H
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
Impression:
Chronic hypercapnic respiratory failure-suspect obesity hypoventilation syndrome.
Abnormal CT chest 09/15/2025: Left upper lobe consolidation atelectasis versus recovering pneumonia.
? COPD-no acute exacerbation.
-
Conditions present prior admission.
#Left lower lobe pneumonia 08/2025
#Rapid A-fib
#Bedbound status
#History of COPD (no PFTs or spirometry to review to confirm this)
On BREO
#Bilateral otitis externa with right ear fullness/clogged
#Severe morbid obesity
#Chronic HFpEF
#AYLIN on CPAP/chronic hypercapnic respiratory failure likely obesity hypoventilation syndrome
#GERD
#History of asthma
#Chronic sinusitis
#Former tobacco smoker (quit approximately 15 years ago)
Plan:
-
From the pulmonary perspective is close to baseline.
? COPD-no emphysema on CAT scan.
Former smoker who quit 15 years ago.
Certainly no emphysema noted on CT chest.
Suspect most of pulmonary abnormalities may be driven by morbid obesity and restrictive lung defect.
Patient on Breo in the outpatient setting. Unclear whether he can perform inhaler technique properly.
Patient states that only medication that was Dulera, other inhalers not working.
I am not convinced that COPD is driving any significant symptoms. Suspect chronic microaspiration and morbid obesity.
-
He does report history of rhinosinusitis-perhaps some component of asthma. No details available.
-
If transition to nebulizer is desired: Recommend DuoNebs 3 times daily/Pulmicort twice daily. Subsequently can be transferred to long-acting nebulizer
Patient has multiple complaints regarding his current living facility regarding medications.
He will need to establish care with us first before proceeding with long-acting nebulizers.
-
If patient does not desire nebulizers-can try to transition to Trelegy. Again, do not think he will be essential as most of the symptoms are due to morbid obesity. This can be looked into the outpatient setting.
Supplemental oxygen as needed-97% saturation-currently on room air
-
Obstructive sleep apnea-chronic hypercapnic respiratory failure. Appears compensated.
Doubt COPD is driving hypercapnia.
VBG 7.48/65/54. Likely baseline CO2 in the mid 50s.
Patient did not tolerate BiPAP last admission-patient refused as well this admission.
Okay to continue with CPAP for now-no change in settings. This could be discussed in the outpatient setting.
Avoid sedatives
Weight loss recommended
Patient may qualify for GLP-1 agonist.
He was recommended to make an appointment in our office for follow-up.
-
Abnormal CT chest:
CT chest 09/15/2025: Left upper lobe infiltrate. Suspect resolving pneumonia.
CT chest 08/30/2025-consolidation and mild adjacent opacification left upper lobe and mildly prominent mediastinal lymph nodes, scattered pulmonary nodules measuring up to 8 mm in the right lower lobe
Negative procalcitonin
Completed antibiotics for MSSA and bacteremia/pneumonia 09/12/2025.
Infectious disease consulted and correspondence reviewed.
DVT prophylaxis-on Eliquis
No additional recommendations.
Agree with discharge planning.
Information will be left in the chart to follow-up.
Unlikely to be able to follow-up due to his size and in mobility. We cannot accommodate in the office.
-
From the pulmonary perspective no additional acute recommendations. All this could be addressed in the outpatient setting.
Data:
CXR 08/29/2025:
Limited by supine positioning and portable technique.
Stable examination. Persistent left lung opacity/consolidation especially in the mid lung zone, likely pneumonia. There is subtle blunting of lateral costophrenic angle, suggesting at least an element of pleural fluid.
--- NOTE | 2025-09-17 14:21 | CM ---
Addendum entered by Rola Monique RN 09/19/25 08:55:
Late entry for 09/17. Per Lisha at [facility] patient called [phone] himself to come to ED. Both their Physician and nursing evaluated patient and felt that his condition at that time did not warrant an ED visit.
Original Note:
Spoke to Lisha at [facility], She stated that they are willing to take back but we will need to obtain an auth. She stated they can accept patient even if skilled auth is denied, as then they can bill MA with denied auth. Macy , in Admissions at
[facility], is oncall this week-end. She can be reached at [phone]. Update to .
--- NOTE | 2025-09-17 14:24 | PN.CDI ---
CDI
- -
CDI:
Physician Documentation Request
Admit Date: 09/15/25 20:40
Dear Doctor Parker,
Clinical Indicators:
09/16 WOC RN skin/wound consult: Left Abdomen Stage 2 Pressure Injury vs healing burn, POA
Treatment: Silicone border foam dressing, bariatric air bed
Physician documentation of the type and location of wounds is required for compliant documentation. Based on the above clinical findings and your assessment, please provide the following in your progress note:
1. Location of the ulcer/wound, including laterality.
2. Type (etiology) of ulcer/wound:
- Diabetic ulcer
- Arterial (ischemic) ulcer
- Traumatic wound
- Venous stasis ulcer
- Pressure (decubitus) ulcer
- Non-healing surgical wound
- Other
- Unable to determine
3. If a pressure ulcer, please also include the stage* of the ulcer:
- Stage 1 - Skin intact, non-blanchable redness
- Stage 2 - Partial thickness loss of dermis, includes intact or open blister
- Stage 3 - Full thickness tissue not including bone, tendon or muscle
- Stage 4 - Full thickness tissue loss, including exposed bone, tendon or muscle
- Unstageable - Full thickness loss in which the base of the ulcer is covered by slough (yellow, arriola, richey, green or brown) and/or eschar (arriola, brown or black) in the wound bed.
- Unable to determine
Use of terms such as suspected, likely, concern for, or probable (associated with a specific diagnosis that is being evaluated, monitored, or treated as if it exists) are acceptable and can be coded in the inpatient setting, when documented at the
time of discharge.
Thank you,
MOLLY Potts RN
CDI Specialist
available via tiger text
Please use your independent medical judgment in providing your response.
*Source: National Pressure Ulcer Advisory Panel (NPUAP)
--- NOTE | 2025-09-17 14:32 | PN.CDI ---
CDI
- -
CDI:
Physician Documentation Request
Admit Date: 09/15/25 20:40
Dear Doctor Parker,
Clinical Indicators:
PMH includes chronic HFpEF & COPD
Home medications include Lasix 60 mg PO BID
Sodium trend:
09/15/25 09/16/25 09/17/25
15:47 06:08 05:38
Sodium 131 L 132 L 131 L
Based on the above, could you clarify in the progress notes, the appropriate diagnosis, if significant, that supports the above abnormalities and additional evaluation, monitoring and/or treatment rendered:
Hyponatremia
Abnormal lab values, clinically insignificant
Other
Use of terms such as suspected, likely, concern for, or probable (associated with a specific diagnosis that is being evaluated, monitored, or treated as if it exists) are acceptable and can be coded in the inpatient setting, when documented at the
time of discharge.
Thank you,
MOLLY Potts RN
CDI Specialist
available via tiger text
Please use your independent medical judgment in providing your response.
[2025-09-17 15:57] VITALS: BP 111/58
--- NOTE | 2025-09-17 16:17 | CM ---
Chart reviewed. Per [facility], can accept patient back w/ an auth, whether approved or denied
[employer] [facility] [phone]. Policy # [id number]
RE[facility] to attempt auth, was transferred to another department. Spoke w/ Hari who informed CM that his dept doesn't complete authorizations, that they are only tech support for [employer] portal so not sure why CM was transferred to his
dept
Attempted call back to customer service number, unable to connect w/ a data entry representative due to lengthy wait time
CM to attempt to obtain auth another time
Plan: Return to [facility] once auth is obtained
[2025-09-17] MEDS: DUONEB 3 ML INH ×2 (16:40→19:44)
--- NOTE | 2025-09-17 17:06 | CM ---
Call received from Hayley Aguilar from [facility] regarding utilization review determination. I asked her who we would contact to obtain SNF auth for this patient. Per Hayley clinical information,face sheet and completed [facility] Pre-cert
Worksheet needs to be fax'd to [phone], ATTN :[employer].Update to .
[2025-09-17 19:23] VITALS: BP 116/60
[2025-09-17] MEDS: PULMICORT 0.5 MG INH (19:44)
[2025-09-17] MEDS: SINGULAIR 10 MG PO (20:37)
[2025-09-17] MEDS: REMOVE LIDOCAINE PATCH 1 PATCH REMOVE (21:00)
[2025-09-17 23:31] VITALS: BP 107/65
[2025-09-18 03:10] VITALS: BP 92/58
[2025-09-18 03:27] VITALS: BP 110/64
[2025-09-18 06:00] VITALS: BMI 76.3
[2025-09-18 07:07] VITALS: BP 101/67
[2025-09-18] MEDS: PULMICORT 0.5 MG INH ×2 (07:24→19:42)
[2025-09-18] MEDS: DUONEB 3 ML INH ×3 (07:24→19:41)
[2025-09-18 08:17] LABS: Hematocrit 45.0 % (39.0-52.0); Hemoglobin 13.9 g/dL (13.0-18.0); Mean Corp Hgb Conc. 30.9 g/dL (33.0-37.0); Mean Corpuscular Volume 78.5 fL (80.0-94.0); Platelet Count 256 10^3/uL (130-400); Red Cell Dist. Width 18.2 % (11.5-14.5)
[2025-09-18 08:44] LABS: Blood Urea Nitrogen 35 mg/dl (9-20); Calcium 9.2 mg/dl (8.4-10.2); Chloride 85 mmol/L (98-107); Estimated Creatinine Clearance > 125 ml/min; Glucose 139 mg/dl (70-99); Potassium 3.5 mmol/L (3.5-5.1); Sodium 131 mmol/L (135-145); eGFR > 60.00
[2025-09-18] MEDS: KCL 20 MEQ PO ×2 (08:45→20:53)
[2025-09-18] MEDS: LIPITOR 20 MG PO (08:46)
[2025-09-18] MEDS: ALDACTONE 25 MG PO (08:46)
[2025-09-18] MEDS: ELIQUIS 5 MG PO ×2 (08:46→20:53)
[2025-09-18] MEDS: CARDIZEM CD 180 MG PO (08:46)
[2025-09-18] MEDS: LASIX 60 MG PO ×2 (08:46→20:59)
[2025-09-18] MEDS: ZAROXOLYN 2.5 MG PO (08:46)
[2025-09-18] MEDS: LOW STRENGTH ASPIRIN 81 MG PO (08:46)
[2025-09-18] MEDS: LIDOCAINE 4% PATCH 1 PATCH TOPICAL (08:46)
[2025-09-18] MEDS: TOPROL XL 50 MG PO ×2 (08:46→21:00)
[2025-09-18] MEDS: DESENEX/MITRAZOL/ZEASORB 1 APPLIC TOPICAL ×2 (08:47→20:59)
[2025-09-18] MEDS: PROTONIX 40 MG PO (08:47)
[2025-09-18] MEDS: TRIAMCINOLONE ACETONIDE 0.1% 1 APPLIC TOPICAL ×2 (08:47→21:01)
[2025-09-18 09:15] LABS: Carbon Dioxide 37 mmol/L (22-30)
[2025-09-18 12:01] VITALS: BP 101/59
--- NOTE | 2025-09-18 13:51 | W.PN.HOSP.TC ---
Today's Communication/Plan
-
Continue nebs
Discharge to facility is pending auth
Assessment / Plan
Assessment / Plan
65M w/morbid obesity, AYLIN on CPAP and A-Fib p/w SOB.
SOB
CO2 retention
COPD
AYLIN on CPAP (autopap)
imaging shows that previous pneumonia is slightly improving
No E/O CHF exacerbation
Labs consistent with CO2 retention
Patient is compliant with his CPAP at night
Patient prefers Advair, also asks for Dulera, does not appear to be formulary
Consulted pulmonology, appreciate recs, his inhalers were changed to nebs.
Recent pneumonia
Last admission MSSA bacteremia, treated with cefazolin which was DC'd due to rash, then treated with Unasyn which was DC'd due to rash, then changed to linezolid p.o. twice daily
Empirically placed on IV Merrem due to allergy profile
ID consulted, appreciate recs, CT not showing worsening pneumonia
They have discontinued Merrem
Pro-Burke was low
Chronic HFpEF
Echo was technically limited due to body habitus
Not hypoxic, no edema, no effusions on CT, appears compensated
Resume SGLT2i
Continue diuresis with oral Lasix, metolazone
Continue beta-dea, aspirin, statin, spironolactone
Monitor I's and O's, goal -1 L.
Paroxysmal Atrial Fibrillation
HR controlled
- Continue Eliquis BID
Continue beta-dea, diltiazem
Outpatient cardiology follow-up
s/p Panniculectomy
- Stable. Surgical site appears well-healed. No current issues.
Morbid Obesity
due to excess calories
- BMI > 60.
- Affects all aspects of care.
DVT Prophylaxis: On Eliquis
Code Status: Full
Anticipated Discharge: Today
Subjective/Interval History
-
Date of Service: September 18, 2025
No acute issues overnight
Objective Data
-
Labs:
Laboratory Results
09/18/25
08:04
WBC 13.9 H
Hgb 13.9
Hct 45.0
Plt Count 256
Sodium 131 L
Potassium 3.5
Chloride 85 L
Carbon Dioxide 37 H
BUN 35 H
Creatinine 0.8
Glucose 139 H
Calcium 9.2
Vital Signs:
Vital Signs
Temp Pulse Resp BP Pulse Ox
97.4 F 94 18 101/59 95
09/18/25 12:01 09/18/25 12:01 09/18/25 12:01 09/18/25 12:01 09/18/25 12:01
I&O
09/17/25 09/18/25 09/19/25
06:59 06:59 06:59
Intake Total 1210 / 1210 1000 / 1000
Output Total 2825 / 2825 2950 / 2950
Balance -1615 / -1615 -1950 / -1950
Review of Systems
-
All other systems: Reviewed and negative
Physical Exam
-
General: No Apparent Distress, Conversant and Morbidly Obese
HEENT: Anicteric and PERRLA
Respiratory: Clear to Auscultation and Decreased Breath Sounds; Negative Wheezes or Rales
Cardiac: S1/S2 and Irregular Rhythm; Negative Murmur
GI: Soft, Nontender, Nondistended and Normal Bowel Sounds
Musculoskeletal: No Edema
Skin: Warm and Dry; Negative Rash, Ulcers or Lesions
Neuro: Awake and AO x 3
Psych: Calm
Data Reviewed
-
CT Scan: Report Reviewed by me, Discussed with Physician and Discussed with Patient
Labs: Labs Reviewed by me, Discussed with Physician and Discussed with Patient
[2025-09-18] MEDS: TYLENOL 650 MG PO ×2 (14:49→21:03)
--- NOTE | 2025-09-18 15:44 | CM ---
sent fax with clinical to [facility] for auth for snf.
[2025-09-18 19:27] VITALS: BP 101/66
[2025-09-18] MEDS: SINGULAIR 10 MG PO (20:57)
[2025-09-18] MEDS: REMOVE LIDOCAINE PATCH 1 PATCH REMOVE (21:01)
[2025-09-18 23:22] VITALS: BP 104/55
[2025-09-19 03:24] VITALS: BP 105/71
[2025-09-19 05:31] VITALS: BMI 76.2
[2025-09-19 06:00] VITALS: BMI 76.2
[2025-09-19] MEDS: DUONEB 3 ML INH ×3 (08:22→19:16)
[2025-09-19] MEDS: PULMICORT 0.5 MG INH ×2 (08:22→19:16)
[2025-09-19 08:29] VITALS: BP 107/69
[2025-09-19] MEDS: LASIX 60 MG PO ×2 (08:41→20:26)
[2025-09-19] MEDS: KCL 20 MEQ PO ×2 (08:41→20:24)
[2025-09-19] MEDS: LOW STRENGTH ASPIRIN 81 MG PO (08:41)
[2025-09-19] MEDS: LIDOCAINE 4% PATCH 1 PATCH TOPICAL (08:41)
[2025-09-19] MEDS: PROTONIX 40 MG PO (08:41)
[2025-09-19] MEDS: ZAROXOLYN 2.5 MG PO (08:41)
[2025-09-19] MEDS: ELIQUIS 5 MG PO ×2 (08:41→20:24)
[2025-09-19] MEDS: CARDIZEM CD 180 MG PO (08:41)
[2025-09-19] MEDS: TOPROL XL 50 MG PO ×2 (08:41→20:24)
[2025-09-19] MEDS: LIPITOR 20 MG PO (08:41)
[2025-09-19] MEDS: ALDACTONE 25 MG PO (08:41)
[2025-09-19] MEDS: TYLENOL 650 MG PO ×2 (08:49→20:23)
[2025-09-19 11:58] VITALS: BP 113/64
[2025-09-19] MEDS: DESENEX/MITRAZOL/ZEASORB 1 APPLIC TOPICAL ×2 (12:56→20:40)
[2025-09-19] MEDS: TRIAMCINOLONE ACETONIDE 0.1% 1 APPLIC TOPICAL ×2 (12:56→20:39)
--- NOTE | 2025-09-19 13:41 | W.PN.HOSP.TC ---
Addendum entered and electronically signed by Nunu Canales MD 09/24/25 10:19:
for cdi:
abnormal lab values clinically insignificant
Left Abdomen Stage 2 Pressure Injury vs healing burn, POA
Original Note:
Today's Communication/Plan
-
Continue nebs
Discharge to facility is pending auth
Assessment / Plan
Assessment / Plan
65M w/morbid obesity, AYLIN on CPAP and A-Fib p/w SOB.
SOB
CO2 retention
COPD
AYLIN on CPAP (autopap)
imaging shows that previous pneumonia is slightly improving
No e/o CHF exacerbation
Labs consistent with CO2 retention
Patient is compliant with his CPAP at night
Patient prefers Advair, also asks for Dulera, does not appear to be formulary
Consulted pulmonology, appreciate recs, his inhalers were changed to nebs.
Chronic sinusitis
Outpatient ENT referral
Hold off Sudafed given his cardiac issues
Can try guaifenesin
Recent pneumonia
Last admission MSSA bacteremia, treated with cefazolin which was DC'd due to rash, then treated with Unasyn which was DC'd due to rash, then changed to linezolid p.o. twice daily
Empirically placed on IV Merrem due to allergy profile
ID consulted, appreciate recs, CT not showing worsening pneumonia
They have discontinued Merrem
Pro-Burke was low
Chronic HFpEF
Echo was technically limited due to body habitus
Not hypoxic, no edema, no effusions on CT, appears compensated
Resume SGLT2i
Continue diuresis with oral Lasix, metolazone
Continue beta-dea, aspirin, statin, spironolactone
Monitor I's and O's, goal -1 L.
Paroxysmal Atrial Fibrillation
HR controlled
- Continue Eliquis BID
Continue beta-dea, diltiazem
Outpatient cardiology follow-up
s/p Panniculectomy
- Stable. Surgical site appears well-healed. No current issues.
Morbid Obesity
due to excess calories
- BMI > 60.
- Affects all aspects of care.
DVT Prophylaxis: On Eliquis
Code Status: Full
Anticipated Discharge: Within 24 hours
Subjective/Interval History
-
Date of Service: September 19, 2025
Patient saying he has a lot of nasal congestion and asking for Sudafed and guaifenesin
Objective Data
-
Labs:
Laboratory Results
09/18/25
08:04
WBC 13.9 H
Hgb 13.9
Hct 45.0
Plt Count 256
Sodium 131 L
Potassium 3.5
Chloride 85 L
Carbon Dioxide 37 H
BUN 35 H
Creatinine 0.8
Glucose 139 H
Calcium 9.2
Vital Signs:
Vital Signs
Temp Pulse Resp BP Pulse Ox
97.8 F 88 16 113/64 96
09/19/25 11:58 09/19/25 11:58 09/19/25 11:58 09/19/25 11:58 09/19/25 11:58
I&O
09/18/25 09/19/25 09/20/25
06:59 06:59 06:59
Intake Total 1000 / 1000 1680 / 1680 480 / 480
Output Total 2950 / 2950 2650 / 2650 1000 / 1000
Balance -1950 / -1950 -970 / -970 -520 / -520
Review of Systems
-
All other systems: Reviewed and negative
Physical Exam
-
General: No Apparent Distress, Conversant and Morbidly Obese
HEENT: Anicteric and PERRLA
Respiratory: Clear to Auscultation and Decreased Breath Sounds; Negative Wheezes or Rales
Cardiac: S1/S2 and Irregular Rhythm; Negative Murmur
GI: Soft, Nontender, Nondistended and Normal Bowel Sounds
Musculoskeletal: No Edema
Skin: Warm and Dry; Negative Rash, Ulcers or Lesions
Neuro: Awake and AO x 3
Psych: Calm
Data Reviewed
-
CT Scan: Report Reviewed by me, Discussed with Physician and Discussed with Patient
Labs: Labs Reviewed by me, Discussed with Physician and Discussed with Patient
[2025-09-19 15:50] VITALS: BP 105/62
[2025-09-19 19:21] VITALS: BP 102/62
[2025-09-19] MEDS: MUCINEX 1200 MG PO (20:23)
[2025-09-19] MEDS: SINGULAIR 10 MG PO (20:24)
[2025-09-19] MEDS: REMOVE LIDOCAINE PATCH 1 PATCH REMOVE (20:28)
[2025-09-19 23:22] VITALS: BP 120/66
[2025-09-20] MEDS: VENTOLIN NEBULES 2.5 MG INH (05:28)
[2025-09-20] MEDS: DUONEB 3 ML INH ×2 (07:49→14:52)
[2025-09-20] MEDS: PULMICORT 0.5 MG INH (07:50)
--- NOTE | 2025-09-20 08:27 | W.PN.HOSP.TC ---
Addendum entered and electronically signed by Cristobal Allison MD 09/20/25 15:42:
Case discussed with cards and the pt is cleared for discharge from their standpoint.
Total time spent on d/c = 42 min. This included today's physical exam, progress note, review of laboratory and diagnostic data, preparation of discharge documents and prescriptions, and discussions about the pt's hospital course and discharge plan
with the patient and other medical nurse involved in the patient's care.
Original Note:
Today's Communication/Plan
-
see plan
Assessment / Plan
Assessment / Plan
65M w/morbid obesity, AYLIN on CPAP and A-Fib p/w SOB.
Gen: NAD, AAOx3.
Eyes: EOMI, PERRLA, no scleral icterus.
Neck: supple.
CV: irreg/irreg, +S1/S2, no m/r/g.
Resp: CTAB, no rales, wheezes, or rhonchi.
Abd: +BS, soft, NT, ND
Skin: No rashes.
Neuro: CN 2-12 intact, non-focal.
Psych: Normal mood and affect.
CTA chest:
1. No evidence of pulmonary embolism.
2. Left upper lobe consolidation consistent with pneumonia, slightly improved.
Chronic hypercapnic respiratory failure due to AYLIN/OHS:
-presented with shortness of breath
-VBG on admission 7, pt has chronic CO2 retention due to underlying COPD as well as AYLIN/OHS
-on CPAP HS, has been compliant
-cont Singulair/duonebs
Chest pain:
-08/30/25 echo: TDS, with very limited acoustic windows. Lumison used to enhance image quality with little benefit. Normal left ventricular size. Mild concentric left ventricular hypertrophy. In limited views, left ventricular systolic function
appears to be normal.
-place on tele
-trend trop
-check ECG
-c/s cards
Recent pneumonia:
-Last admission pt had MSSA bacteremia, treated with both cefazolin and Unasyn which were both stopped due to rash, then transitioned to linezolid
-procal 0.10
-was on Meropenem on admission, now stopped as per ID
Other problems:
Chronic sinusitis: outpt ENT referral, cont Mucinex
Chronic HFpEF: cont Lasix/Zaroxolyn/Toprol XL/Aldactone
Paroxysmal Atrial Fibrillation: cont Eliquis/BB/cardizem
h/o Panniculectomy
Morbid Obesity due to excess calories
FULL/Eliquis
Total time spent on today's encounter was 50 minutes which included time spent in counseling the patient/family regarding diagnosis and treatment plan as listed above, goals of care, and symptom management. Case was discussed with nursing staff,
specialists, and care coordinators/case management. All labs and imaging personally reviewed by me. Remainder the time spent in detailed review of previous records, lab data, imaging, and other medical provider documentation.
Anticipated Discharge: Within 24 hours
Subjective/Interval History
-
Date of Service: September 20, 2025
Pt c/o congestion and discomfort in both ears. Upon prompting pt c/o intermittent pressure-like CP and SOB.
Objective Data
-
Vital Signs:
Vital Signs
Temp Pulse Resp BP Pulse Ox
97.5 F 85 18 120/66 94
09/19/25 23:22 09/20/25 07:53 09/20/25 07:53 09/19/25 23:22 09/20/25 07:53
I&O
09/19/25 09/20/25 09/21/25
06:59 06:59 06:59
Intake Total 1680 / 1680 2160 / 2160
Output Total 2650 / 2650 2200 / 2200
Balance -970 / -970 -40 / -40
[2025-09-20 08:35] VITALS: BP 118/63
[2025-09-20] MEDS: LIPITOR 20 MG PO (08:41)
[2025-09-20] MEDS: MUCINEX 1200 MG PO (08:41)
[2025-09-20] MEDS: PROTONIX 40 MG PO (08:41)
[2025-09-20] MEDS: ALDACTONE 25 MG PO (08:42)
[2025-09-20] MEDS: KCL 20 MEQ PO (08:42)
[2025-09-20] MEDS: ELIQUIS 5 MG PO (08:42)
[2025-09-20] MEDS: ZAROXOLYN 2.5 MG PO (08:42)
[2025-09-20] MEDS: TOPROL XL 50 MG PO (08:42)
[2025-09-20] MEDS: LOW STRENGTH ASPIRIN 81 MG PO (08:42)
[2025-09-20] MEDS: LASIX 60 MG PO (08:43)
[2025-09-20] MEDS: CARDIZEM CD 180 MG PO (08:43)
[2025-09-20] MEDS: TRIAMCINOLONE ACETONIDE 0.1% 1 APPLIC TOPICAL (08:44)
[2025-09-20] MEDS: LIDOCAINE 4% PATCH 1 PATCH TOPICAL (08:44)
[2025-09-20] MEDS: DESENEX/MITRAZOL/ZEASORB 1 APPLIC TOPICAL (08:45)
[2025-09-20] MEDS: TYLENOL 650 MG PO (08:55)
[2025-09-20 10:35] LABS: Troponin I < 0.012 ng/ml
[2025-09-20 11:13] VITALS: BMI 75.7
--- NOTE | 2025-09-20 12:36 | CM ---
Addendum entered by Nuvia Layton 09/20/25 13:35:
Awaiting clearance for discharge. Transport forms on chart.
Addendum entered by Nuvia Layton 09/20/25 12:45:
[facility] liaison was Emmy at [phone].
Original Note:
[facility] reviewed case for SNF. Referred to Clinic Manager. Clinic Manager declined SNF LOC. Patient did not have any PT/OT evaluations. Did have PT assessment. Reference # for denial is [id number]. Peer to Peer was offered.
Need to Call . This CM spoke with Lizbeth in admissions at [facility] and relayed the above information. [facility] is willing to accept under Medicaid. They can accept today. Attending notified. Patient c/o chest pain this AM.
Cardiology needs to review and clear for discharge.
[2025-09-20 13:01] VITALS: BP 93/66
--- NOTE | 2025-09-20 14:22 | CON.CAR ---
Addendum entered and electronically signed by Lisa Donaldson DO 09/21/25 03:01:
I saw and examined the patient.
The Knot Tier's note was reviewed and I agree with the note.
Comment: Patient seen and examined with cardiac PA. Joey Sethi is a 65-year-old male who has past medical history significant for morbid obesity, obstructive sleep apnea/CPAP, COPD, iron deficiency anemia, persistent atrial fibrillation,
chronic heart failure with preserved ejection fraction, chronic lymphedema, GERD and ambulatory dysfunction who presented to emergency department 09/15/2025 from [facility] with worsening shortness of breath. He had recent admission for
pneumonia in August 2025 and discharged 09/09/2025. He reports he felt okay for several days and started to feel poorly again with worsening shortness of breath prompting him to return to emergency department. Chest x-ray in emergency department
showed left-sided pleural effusion and consolidation felt to be pneumonia. This was confirmed with CT of chest which showed left upper lobe pneumonia. There was no evidence of pulmonary embolism. ProBNP 236, however may not be accurate given
patient's morbid obesity and BMI > 75. Troponin was negative. Cardiology was consulted for complaints of chest discomfort earlier today. Subsequent cardiac troponin was undetectable. Patient was currently chest pain-free lying on his left side and
appears comfortable.
General: Morbidly obese 65-year-old gentleman lying supine on the left side. RA
Heart: Irregularly irregular. Positive S1-S2. Distant heart sounds. Telemetry atrial fibrillation with heart rates mostly in in the 80s/90s
Lungs:Bronchovesicular breath sounds decreased but clear bilaterally
Abd: Morbidly obese. Positive bowel sounds. Nontender
Ext: Chronic lymphedema
Plan:
65-year-old morbidly obese man from [facility] with atypical chest pain this morning currently chest pain-free
- Cardiac troponin undetectable
- Twelve-lead EKG atrial fibrillation with no acute ischemic changes
- Continue medical therapy including aspirin, statin and beta-dea
- No further inpatient cardiac evaluation at this time
Persistent atrial fibrillation with heart rates relatively controlled
-Plan for rate control strategy given comorbidities
- Continue Eliquis anticoagulation
- Continue Cardizem CD 180 mg daily and metoprolol succinate 50 mg twice daily
- No need to repeat echocardiogram done last month
Left lower no pneumonia
-On room air
- Management per primary
Spoke with hospitalist. Okay from a cardiac standpoint for discharge back to longterm.
Original Note:
Consultation
Consultation Request
Date/Time Consultation Requested: 09/20/2025
Date/Time Consultation Performed: 09/20/2025
Requesting Provider: Dr. Allison
Performing Provider: Monica John PA-C for Dr. Lisa Donaldson
Reason for Consultation: A-fib, chest pain
Medical History
-
Chief Complaint: SOB, rapid AF
History of Present Illness:
Joey Sethi is a 65-year-old male who has past medical history significant for super morbid obesity, obstructive sleep apnea with utilization of CPAP, COPD, iron deficiency anemia, persistent atrial fibrillation, chronic heart failure with
preserved ejection fraction, chronic lymphedema, GERD and ambulatory dysfunction who presented to emergency department 09/15/2025 from [facility] with worsening shortness of breath. He had recent admission for pneumonia in August 2025
and discharged 09/09/2025. He reports he felt okay for several days and started to feel poorly again with worsening shortness of breath prompting him to return to emergency department. Chest x-ray in emergency department showed left-sided pleural
effusion and consolidation felt to be pneumonia. This was confirmed with CT of chest which showed left upper lobe pneumonia. There was no evidence of pulmonary embolism. ProBNP 236, however may not be accurate given patient's super morbid obesity.
Troponin was negative. EKG continued to show atrial fibrillation with rapid ventricular response. Heart rates have improved currently ongoing treatment of pneumonia on diltiazem and metoprolol. On morning of 09/20/2025 patient complained of his
ears feeling clogged up then felt chest pain and a little more short of breath prompting cardiology consult.. EKG showed atrial fibrillation with controlled ventricular response and no evidence of ischemia. Troponin was undetectable. Patient
reports he is currently chest pain-free and breathing back to normal.
Past medical history:
Morbid obesity with BMI greater than 60
Obstructive sleep apnea on CPAP
COPD,
Iron deficiency anemia
Persistent atrial fibrillation
Chronic heart failure with preserved ejection fraction
Chronic lymphedema
GERD
Ambulatory dysfunction/bedbound/Arpan lift
Past Medical History
Past Medical History: Other (See HPI)
Past Surgical History: Other (Abdominal lymphedematous panniculectomy (25 lbs) at [facility] (07/2025), hernia repair)
Social History
Tobacco: Former Smoker
Alcohol: None
Drug: None
Living: Snf ([facility] facility at [facility]. Resides in [place])
Family History
Family History: Reviewed & Not Pertinent
Allergies / Home Medications
Allergy/AdvReac Type Severity Reaction Status Date / Time
ampicillin (From Unasyn) Allergy Rash Verified 09/07/25 10:04
cefazolin Allergy Rash Verified 09/07/25 10:04
Penicillins Allergy Unknown as Verified 09/07/25 10:04
a child.
sulbactam (From Unasyn) Allergy Rash Verified 09/07/25 10:04
�Medication �Instructions �Recorded �Confirmed �Type
acetaminophen 325 mg tablet 650 mg PO Q6HPRN PRN MILD PAIN 08/29/25 09/15/25 History
albuterol sulfate 2.5 mg/3 mL 2.5 mg inhalation R [id number] PRN SOB 08/29/25 09/15/25 History
(0.083 %) solution for nebulization
albuterol sulfate 90 mcg/actuation 2 puff inhalation R Q4HPRN PRN SOB 08/29/25 09/15/25 History
aerosol inhaler
apixaban 5 mg tablet (Eliquis) 5 mg PO HS Blood Clot Prevention/Tx 08/29/25 09/15/25 History
aspirin 81 mg chewable tablet 81 mg PO DAILY Blood Clot 08/29/25 09/15/25 History
Prevention/Tx
atorvastatin 20 mg tablet 20 mg PO DAILY High Cholesterol 08/29/25 09/15/25 History
cetirizine 10 mg tablet 10 mg PO DAILY Allergies 08/29/25 09/15/25 History
cyanocobalamin (vitamin B-12) 1,000 mcg PO DAILY Supplement 08/29/25 09/15/25 History
1,000 mcg tablet
ergocalciferol (vitamin D2) 1,250 1,250 mcg PO QMONTH Supplement 08/29/25 09/15/25 History
mcg (50,000 unit) capsule
fluticasone propionate 50 1 spray intranasal DAILY Allergies 08/29/25 09/15/25 History
mcg/actuation nasal
spray,suspension
montelukast 10 mg tablet 10 mg PO HS Allergies 08/29/25 09/15/25 History
diltiazem HCl 180 mg 180 mg PO DAILY #0 caps 09/07/25 09/15/25 Rx
capsule,extended release 24 hr
furosemide 20 mg tablet (Lasix) 60 mg (3 x 20 mg) PO BID #1 tab 09/07/25 09/15/25 Rx
magnesium oxide 400 mg (241.3 mg 400 mg PO BID #0 tabs 09/07/25 09/15/25 Rx
magnesium) tablet
metolazone 2.5 mg tablet 2.5 mg PO DAILY #0 tabs 09/07/25 09/15/25 Rx
metoprolol succinate 50 mg 50 mg PO BID #0 tabs 09/07/25 09/15/25 Rx
tablet,extended release 24 hr
miconazole nitrate 2 % topical 1 applic topical BID #0 grams 09/07/25 09/15/25 Rx
powder (Miconazorb AF)
pantoprazole 40 mg tablet,delayed 40 mg PO DAILY #0 tabs 09/07/25 09/15/25 Rx
release
potassium chloride 20 mEq 20 meq PO BID #0 tabs 09/07/25 09/15/25 Rx
tablet,extended
release(part/cryst) (Klor-Con M)
spironolactone 25 mg tablet 25 mg PO DAILY #0 tabs 09/07/25 09/15/25 Rx
triamcinolone acetonide 0.1 % 1 applic topical BID #0 mL 09/07/25 09/15/25 Rx
lotion
acetaminophen 500 mg tablet 1,000 mg PO BID Pain 09/15/25 09/15/25 History
(Tylenol Extra Strength)
bisacodyl 10 mg rectal suppository 10 mg MI DAILYPRN PRN if no bm 09/15/25 09/15/25 History
(Dulcolax (bisacodyl)) aFTR MOM
magnesium hydroxide 400 mg/5 mL 2,400 mg PO DAILYPRN PRN IF NO BM 09/15/25 09/15/25 History
oral suspension (Milk of Magnesia) BY 3RD DAY
budesonide 0.5 mg/2 mL suspension 0.5 mg (2 mL) inhalation R BID #0 09/17/25 Rx
for nebulization mL
ipratropium 0.5 mg-albuterol 3 mg 3 ml inhalation R TID #0 mL 09/17/25 Rx
(2.5 mg base)/3 mL nebulization
soln
lidocaine 4 % topical patch 1 patch topical DAILY #0 ea 09/17/25 Rx
Review of Systems
-
History Source: Patient
All other systems: Negative unless noted
Physical Exam
Vital Signs
Temp Pulse Resp BP Pulse Ox
97.8 F 95 18 93/66 94
09/20/25 13:01 09/20/25 13:01 09/20/25 13:01 09/20/25 13:01 09/20/25 13:01
Lab Results
09/18/25 08:04
09/18/25 08:04
Troponin I < 0.012 ng/ml 09/20/25 09:59
Rvu-[id number] Pept 236 pg/ml 09/15/25 15:47
Impression / Plan
-
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
Impression:
Presented 09/15/2025 with worsening SOB
Acute hypoxic respiratory insufficiency, multifactorial
Left lower lobe pneumonia
Chronic heart failure with preserved ejection fraction
Recent admission August 2025 for pneumonia, bacteremia and heart failure, discharged 09/07/2025
Persistent atrial fibrillation
Chronic anticoagulation on Eliquis
Morbid obesity with BMI greater than 60
Obstructive sleep apnea on CPAP
Iron deficiency anemia
ECHO 08/30/25: TDS despite lumason, LV function appears to be normal, mild LVH
Plan:
-Presented 09/15/2025 with worsening shortness of breath, likely multifactorial due to pneumonia
-Left lower lobe pneumonia
- Continue on empiric antibiotics per primary service
Atrial fibrillation, now appears to be persistent
- Rates improving with treatment of pneumonia
- Continue diltiazem 180 mg daily and metoprolol 50 mg twice daily for rate control
- Continue Eliquis 5 mg twice daily
- Prior echo from several weeks ago with preserved ejection fraction. No need to repeat this admission
- TSH 2.99 in August 2025 within normal limits
- Probably not realistic to reestablish sinus rhythm in his case. This was discussed with the patient during previous visit as well as this admission. Continue rate control and anticoagulation.
Atypical chest pain that comes on abruptly associated with some mild shortness of breath
- Troponins in August 2025 and again during one presentation this admission and a.m. of 09/20/2025 are unremarkable. EKG without ischemic changes therefore not suggestive of ACS. Did discuss possibly GERD component given his morbid obesity and
body habitus.
- Stable echo in August 2025
- Continue aspirin, statin, beta-dea
Chronic heart failure with preserved ejection fraction with difficult volume status determination. proBNP not elevated but likely be inaccurate in the setting of morbid obesity
- Unclear how accurate bed scale is. Doubt patient has gained almost 100 pounds from discharge a few weeks ago.
- Continue Lasix 40 mg p.o. twice daily and metolazone 2.5 mg daily.
- Monitor renal function and electrolytes. Keep K greater than 4, mag greater than 2.
Blood pressure well-controlled on Cardizem, metoprolol, Aldactone
Discussed with patient, hospitalist no need for additional cardiac testing at this time.
Data Reviewed
-
EKG: Report Reviewed by me, Discussed with Physician and Discussed with Patient
Radiology: Report Reviewed by me, Discussed with Physician and Discussed with Patient
CT Scan: Report Reviewed by me, Discussed with Physician and Discussed with Patient
Labs: Labs Reviewed by me, Discussed with Physician and Discussed with Patient
Old Records: Reviewed
--- NOTE | 2025-09-20 16:29 | CM ---
Patient has been medically cleared for discharge Back to [facility] for resumption of SNF services. Ambulance transport scheduled for 6:30-7:00PM.
Nurse to Nurse report #: [phone] ask for 1st floor nursing station
Fax#: [phone]
[2025-09-20 18:14] VITALS: BP 119/63
[2025-09-20] MEDS: PULMICORT INH (19:35)
[2025-09-20] MEDS: DUONEB INH (19:35)
== END 2025-09-20 19:10 | DRG 189 ==
LOC: 2 NORTH 20:40
PROVIDERS: Emergency Medicine; Internal Medicine; Registered Nurse; ADMITTING PHYSICIAN Hospitalist; ATTENDING PHYSICIAN Internal Medicine; CONSULT PHYSICIAN Internal Medicine Critical Care Medicine; EMERGENCY PHYSICIAN Emergency Medicine; FAMILY PHYSICIAN Internal Medicine; OTHER PHYSICIAN Internal Medicine Cardiovascular Disease; OTHER PHYSICIAN Internal Medicine Infectious Disease
DX: J96.12 Chronic respiratory failure with hypercapnia (principal); J18.9 Pneumonia, unspecified organism; J44.0 Chronic obstructive pulmonary disease with (acute) lower respiratory infection; E66.2 Morbid (severe) obesity with alveolar hypoventilation; Z68.45 Body mass index [BMI] 70 or greater, adult; I50.32 Chronic diastolic (congestive) heart failure; I48.19 Other persistent atrial fibrillation; I11.0 Hypertensive heart disease with heart failure; Z87.891 Personal history of nicotine dependence; Z79.01 Long term (current) use of anticoagulants; I48.0 Paroxysmal atrial fibrillation; L89.892 Pressure ulcer of other site, stage 2; Z74.01 Bed confinement status; Z79.82 Long term (current) use of aspirin; Z79.899 Other long term (current) drug therapy
CPT/HCPCS: 71045; 71275; 80048; 80053; 82805; 83880; 84145; 84484; 85025; 85027; 85379; 86803; 87070; 87502; 93005; 94640; 96374; 99285; J2185; Q9967

== ENCOUNTER 2025-09-26 23:12 | Emergency (ER) | payer OTHER, SELFPAY ==
[2025-09-26 23:13] VITALS: BMI 61.7
[2025-09-26 23:28] VITALS: BP 119/82
--- NOTE | 2025-09-26 23:34 | ED.GENMED ---
History of Present Illness
General
Chief Complaint: Breathing Problem
Source: patient
Exam Limitations: none
Time Seen by Provider: 09/26/25 23:31
Nursing documentation reviewed up to this point in time: agreed with
History of Present Illness
History of Present Illness:
65-year-old male with a past medical history of morbid obesity, COPD, A-fib on Eliquis, hypertension, GERD, chronic sinusitis, chronic otitis externa, presents to the ER today with concerns of shortness of breath x 3 days. Patient reports that he
was discharged from [facility] on 09/20/2025 at that time was seen for ongoing shortness of breath with possible pneumonia versus obesity hypoventilation syndrome with restrictive defect. He was seen at that time felt better for a few days
but then his symptoms returned. He is not coughing. He has had intermittent chills and hot sweats although no clear fever. He also feels sinus pressure and congestion. No chest pain at this time. No extremity swelling. No hemoptysis. No
nausea or vomiting. He reports that he is not seeing his primary care provider in weeks and reports that no doctor has come to [facility]. He reports that they have been giving him albuterol treatments that helped for around 20 to 30 minutes when
the symptoms return.
I spoke to staff from [facility] who reports that they did a chest x-ray and blood work and they thought that it looked okay but patient insisted emergency department evaluation.
Review of Systems
Review of Systems
All Other Systems: ROS reviewed and negative except as documented in HPI and ROS
Phy Exam
Physical Exam
Physical Exam:
General: Patient is well appearing and in no acute distress; non-toxic, morbidly obesity
Skin: Warm and dry, no rashes or lesions
Head: Normocephalic, atraumatic
Eyes: Sclera non-icteric. EOMs intact.
Cardiac: Heart rate irregularly irregular, no murmurs
Peripheral Vascular: No lower extreme swelling or edema
Pulm: Normal respiratory effort, no wheezes, rhonchi, chronically on 2 L via nasal cannula
93% on RA
Neuro: CN II-XII intact, no focal neurologic deficits.
Psychiatric: Appropriate mood and affect.
Scores
Heart Failure Risk
Heart Failure Risk Score: Not Applicable
Course
Orders/Labs/Results
Orders:
Orders
09/26/25 23:53
Complete Blood Count/With Diff Urgent
Comprehensive Metabolic Panel Urgent
NT-proBNP Urgent
Troponin I Urgent
09/26/25 23:57
COVID-19 Antigen Urgent
Source: Nasal Swab
Influenza A+B Rapid Molecular Urgent
LUCIA Source: Nasal Swab
Specimen Description:
09/26/25 23:58
Respiratory Syncytial Virus Urgent
LUCIA Source: Nasal Swab
Specimen Description:
Date Specimen was Collected: 09/27/25
Time Specimen was Collected: 00:52
09/27/25
Electrocardiogram (*1) Stat
Reason for Study: Chest Pain
Comment: DONE
09/27/25 00:24
CT Chest PE Study Urgent
Comment:
Reason For Exam: shortness of breath, tachycardia
09/27/25 01:34
Potassium Chloride 10% Elixir [KCl Elixir] 20 meq PO NOW STA
Abnormal Lab Results
09/27/25
00:34
WBC 14.9 H 10^3/uL
(4.8-10.8)
MCV 78.0 L fL
(80.0-94.0)
MCH 24.6 L pg
(27.0-31.0)
MCHC 31.5 L g/dL
(33.0-37.0)
RDW 17.5 H %
(11.5-14.5)
MPV 11.3 H fL
(7.4-10.4)
Abs Immat Gran (auto) 0.1 H 10^3/uL
(0-0.05)
Absolute Neuts (auto) 8.9 H 10^3/uL
(1.4-6.5)
Absolute Lymphs (auto) 4.0 H 10^3/uL
(1.2-3.4)
Absolute Monos (auto) 1.3 H 10^3/uL
(0.1-0.6)
Immature Gran % 0.6 H %
(0-0.5)
Sodium 133 L mmol/L
(135-145)
Potassium 3.2 L mmol/L
(3.5-5.1)
Chloride 89 L mmol/L
(98-107)
Carbon Dioxide 33 H mmol/L
(22-30)
BUN 39 H mg/dl
(9-20)
Glucose 151 H mg/dl
(70-99)
Alkaline Phosphatase 162 H U/L
(38-126)
09/27/25 00:34
09/27/25 00:34
Vital Signs
Initial and Last Documented VS:
Initial Vital Signs
BP
119/82
09/26/25 23:28
Last Documented Vital Signs
Temp Pulse Resp BP Pulse Ox
98.1 F 104 20 119/63 94
09/26/25 23:30 09/27/25 06:00 09/27/25 06:00 09/27/25 06:00 09/27/25 05:00
MDM/Problems Addressed
Differential Diagnosis Includes:
ddx include rapid afib, chf, pneumonia, viral syndrome
MDM/Problems Addressed:
65-year-old male with a past medical history of COPD, A-fib, morbid obesity presents the ER today with concerns of ongoing shortness of breath x 3 days.
Of note, he was just discharged on 09/20/25 for shortness of breath thought to be secondary to recovering from pneumonia vs obesity hyperventilation syndrome.
On 09/09/2025, he was discharged for acute respiratory insufficiency secondary to left lower lobe pneumonia.
Patient declined DuoNeb treatment as he feels that they do not help his symptoms much. On reassessment, he feels that his shortness of breath feels okay at this time but reports that when he is at [facility], his shortness of breath gets worse. He
reports that sometimes the room is stuffy there and is concerned that there is something else that could be contributing to these episodes that were not finding on testing. Today, his lung sounds are clear for me and he does not appear to be any
respiratory distress. Reviewed labs, leukocytosis noted although this is around his baseline. He is mildly hyper kalemia could did give a small dose of potassium. proBNP decreased from baseline. ECG shows no acute ischemic changes. CT scan of
the chest shows no evidence of pulmonary embolism, findings on the left favor atelectasis however could represent developing pneumonia but patient has no pneumonia symptoms, no fever, no cough. Suspect this is chronic related to restrictive lung
disease/OHS versus viral syndrome. Discussed case with ED attending. Patient will need follow-up with primary care provider. Patient stable for discharge.
Chronic conditions affecting care:
COPD, pneumonia, afib, htn
*Pulse Oximetry
Nasal Cannula flow liters per minute: 2
Patient hypoxic: no
*Critical Care Note
Total Time (30-74mins, 75-104mins- exclusive of procedures): Not Applicable
Data Reviewed
Review of Other/Old Records Reveals: Records (Reviewed prior discharge summaries)
Source: patient and records
ED Attending Note
-
Portions of this chart may have been created with voice recognition software.� Occasional wrong word or��sound alike� substitutions may have occurred due to the inherent limitations of voice recognition software.
Discharge Plan
Departure
Patient Disposition: Home (Routine Discharge)
Date of Disposition: 09/27/25
Time of Disposition: 02:20
Patient with high blood pressure during this ER visit?: Yes
Condition: Good
Discharge Problem:
Shortness of breath, Obesity hypoventilation syndrome
Instructions: Shortness of Breath (Dyspnea) (DC)
Prescriptions:
No Action
acetaminophen 325 mg Tablet
650 mg PO Q6HPRN PRN (Reason: mild pain/temp >100.4)
atorvastatin 20 mg Tablet
20 mg PO DAILY
albuterol sulfate 2.5 mg /3 mL (0.083 %) Solution For Nebulization
2.5 mg INHALATION R [id number] PRN (Reason: SOB)
cetirizine 10 mg Tablet
10 mg PO DAILY
cyanocobalamin (vitamin B-12) 1,000 mcg Tablet
1,000 mcg PO DAILY
aspirin 81 mg Tablet,Chewable
81 mg PO DAILY
montelukast 10 mg Tablet
10 mg PO HS
ergocalciferol (vitamin D2) 1,250 mcg (50,000 unit) Capsule
1,250 mcg PO QMONTH
Rx Instructions:
ON THE OF EACH MONTH
albuterol sulfate 90 mcg/actuation Hfa Aerosol Inhaler
1 puff INHALATION R Q4HPRN PRN (Reason: SOB)
fluticasone propionate 50 mcg/actuation [place],Suspension
1 spray INTRANASAL DAILY
Eliquis 5 mg Tablet
5 mg PO HS
metolazone 2.5 mg Tablet
2.5 mg PO DAILY Qty: 0 0RF
diltiazem HCl 180 mg Capsule,Extended Release 24hr
180 mg PO DAILY Qty: 0 0RF
miconazole nitrate [Miconazorb AF] 2 % Powder
1 applic topical BID Qty: 0 0RF
Rx Instructions:
groin, LLQ, RLQ, neck
spironolactone 25 mg Tablet
25 mg PO DAILY Qty: 0 0RF
potassium chloride [Klor-Con M20] 20 mEq Tablet,Er Particles/Crystals
20 meq PO BID Qty: 0 0RF
magnesium oxide 400 mg (241.3 mg magnesium) Tablet
400 mg PO BID Qty: 0 0RF
pantoprazole 40 mg Tablet,Delayed Release (Dr/Ec)
40 mg PO DAILY Qty: 0 0RF
triamcinolone acetonide 0.1 % Lotion
1 applic topical BID Qty: 0 0RF
Rx Instructions:
BOTH LEGS
furosemide [Lasix] 20 mg tablet
60 mg PO BID Qty: 1 0RF
acetaminophen [Tylenol Extra Strength] 500 mg Tablet
1,000 mg PO Q12H
magnesium hydroxide [Milk of Magnesia] 400 mg/5 mL Suspension
2,400 mg PO DAILYPRN PRN (Reason: if no BM in 3 days)
bisacodyl [Dulcolax (bisacodyl)] 10 mg Suppository
10 mg ID DAILYPRN PRN (Reason: if MOM ineffective)
ipratropium-albuterol 0.5 mg-3 mg(2.5 mg base)/3 mL Solution For Nebulization
3 ml inhalation R TID Qty: 0 0RF
lidocaine 4 % Adhesive Patch,Medicated
1 patch topical DAILY Qty: 0 0RF
Rx Instructions:
apply to R shoulder/lower back
budesonide 0.5 mg/2 mL Suspension For Nebulization
0.5 mg inhalation R BID Qty: 0 0RF
Aquaphor Ointment
1 applic TOPICAL TID
Rx Instructions:
apply to legs, arms and back
Fleet Enema 19-7 gram/118 mL Enema
118 ml ID DAILYPRN PRN (Reason: if suppository ineffective)
pseudoephedrine HCl 30 mg Tablet
30 mg PO Q4HPRN PRN (Reason: acute contact otitis externa)
hydroxyzine HCl 25 mg Tablet
25 mg PO Q8HPRN PRN (Reason: anxiety)
metoprolol succinate 50 mg tablet extended release 24 hr
50 mg PO Q12H
Referrals:
UNKNOWN - PT DOES,NOT KNOW [Family Provider]
Activity Restrictions/Additional Instructions:
As discussed, please follow up with your primary care provider. Your potassium was low today. Please have blood work repeated by the end of this week.
PLEASE RETURN TO ER SHOULD YOU HAVE CHEST PAIN, DIZZINESS, LIGHTHEADEDNESS, FAINTING SPELLS, COUGHING UP BLOOD, WEAKNESS IN ONE-SIDED BODY VERSUS OTHER, FACIAL DROOP, CONFUSION, OR ANY OTHER SIGNS OR SYMPTOMS RECENTLY.
Interventions
Interventions:
*Risk Screen - Suicide Last Done: 09/26/25 23:29
*General Assessment Last Done: 09/26/25 23:29
*Neglect/Abuse Screening Last Done: 09/26/25 23:29
*ED COVID-19 Vaccine History Last Done: 09/26/25 23:29
*ED Influenza Vaccine History Last Done: 09/26/25 23:29
[facility] Risk Assessment Tool Last Done: 09/26/25 23:13
ED- Cardiac Assessment Last Done: 09/26/25 23:29
ED- Pulmonary Assessment Last Done: 09/26/25 23:29
Discharge Date and Time
Print Language: DANISH
[2025-09-27] VITALS (8 sets, daily range): BP systolic 102–124; BP diastolic 61–100
[2025-09-27 00:58] LABS: ALT (SGPT) 19 U/L (0-50); AST (SGOT) 23 U/L (17-59); Albumin 4.1 g/dl (3.5-5.0); Alkaline Phosphatase 162 U/L (38-126); Blood Urea Nitrogen 39 mg/dl (9-20); Calcium 9.1 mg/dl (8.4-10.2); Carbon Dioxide 33 mmol/L (22-30); Chloride 89 mmol/L (98-107); Estimated Creatinine Clearance > 125 ml/min; Glucose 151 mg/dl (70-99); Potassium 3.2 mmol/L (3.5-5.1); Sodium 133 mmol/L (135-145); Total Protein 7.2 g/dl (6.3-8.2); eGFR > 60.00
[2025-09-27 01:07] LABS: COVID-19 Antigen Negative (Negative)
[2025-09-27 01:11] LABS: Troponin I 0.018 ng/ml
[2025-09-27 01:13] LABS: Hematocrit 42.2 % (39.0-52.0); Hemoglobin 13.3 g/dL (13.0-18.0); Mean Corp Hgb Conc. 31.5 g/dL (33.0-37.0); Mean Corpuscular Volume 78.0 fL (80.0-94.0); Nucleated Red Blood Cells % 0 % (-); Platelet Count 299 10^3/uL (130-400); Red Cell Dist. Width 17.5 % (11.5-14.5)
[2025-09-27] MEDS: KCL ELIXIR 20 MEQ PO (01:43)
--- NOTE | 2025-09-27 05:46 | PTCARENOTE ---
Pt pending DC back to [facility] with tentative pickup time of 10am. Currently remains on monitor, AFib 90s-110s. Pt resting with eyes closed, occasionally will yell out that he's having trouble breathing but has been 90-95%, placed on 2LNC for
comfort.
--- NOTE | 2025-09-27 08:53 | EDRN ---
Pt upset about discharge when it was reviewed w/ him at this time saying 'I'll be back tonight.'
--- NOTE | 2025-09-27 08:54 | EDRN ---
Pt requested bedpan but was incontinent of stool on the bed and is requesting to be seen by a doctor at this time.
--- NOTE | 2025-09-27 08:56 | EDRN ---
Dr. Romero was informed pt requesting an MD even though he is discharged. Pt stated he does not want to return to [facility].
--- NOTE | 2025-09-27 09:20 | EDRN ---
Attempting to call report to [facility] at this time.
--- NOTE | 2025-09-27 09:30 | EDRN ---
Dr. Romero in to speak w/ pt at this time due to pt request.
--- NOTE | 2025-09-27 09:32 | EDRN ---
No one at [facility] answered to phone to give report to. Attempting at this time to call again to give report to staff at [facility].
--- NOTE | 2025-09-27 09:33 | EDRN ---
No Answer at [facility] at this time.
--- NOTE | 2025-09-27 09:44 | EDRN ---
Attempt #3 at calling report to [facility] at [phone]. Call has been transferred by operators teacher each call and then no one answers the phone.
--- NOTE | 2025-09-27 10:08 | EDRN ---
4th attempt at calling report as no answer. again no answer after call transferred. Left message on [employer] machine at this time.
--- NOTE | 2025-09-27 11:50 | EDRN ---
Left message on [employer] phone to call ED for report, still not call back from [facility].
--- NOTE | 2025-09-27 12:00 | EDRN ---
Facility fence erector supervisor called and asked about pt's ETA and she was asked about report and couldn't take, ED Tel no given and this RN's name for report given to fence erector supervisor to pass on to RN for report
== END 2025-09-27 11:50 | disposition home or self-care (01) ==
LOC: EMR 23:12
PROVIDERS: Physician Assistant; EMERGENCY PHYSICIAN Emergency Medicine
DX: E66.2 Morbid (severe) obesity with alveolar hypoventilation (principal); Z68.44 Body mass index [BMI] 60.0-69.9, adult; E87.5 Hyperkalemia; I10 Essential (primary) hypertension; I48.91 Unspecified atrial fibrillation; J44.9 Chronic obstructive pulmonary disease, unspecified; K21.9 Gastro-esophageal reflux disease without esophagitis; J32.9 Chronic sinusitis, unspecified; Z79.01 Long term (current) use of anticoagulants; Z87.01 Personal history of pneumonia (recurrent); Z99.81 Dependence on supplemental oxygen; Z79.82 Long term (current) use of aspirin
CPT/HCPCS: 99284; 71275; 80053; 83880; 84484; 85025; 87502; 87807; 87811; 93005; Q9967

== ENCOUNTER 2025-10-01 04:35 | Emergency (ER) | payer OTHER, SELFPAY ==
[2025-10-01] VITALS (8 sets, daily range): BP systolic 100–131; BP diastolic 61–94
[2025-10-01] MEDS: DUONEB 3 ML INH (04:51)
--- NOTE | 2025-10-01 06:04 | ED.GENMED ---
History of Present Illness
<Benjamin Jean, DO - Last Filed: 10/01/25 06:29>
General
Chief Complaint: Cough
Source: patient, ambulance crew and halfway
Exam Limitations: none
Time Seen by Provider: 10/01/25 04:44
Nursing documentation reviewed up to this point in time: agreed with
History of Present Illness
History of Present Illness:
Note:
CHIEF COMPLAINT(S)
Right-sided muscle spasm and difficulty breathing.
HISTORY OF PRESENT ILLNESS
The patient is a 65-year-old male who presents with muscle spasms and difficulty breathing. He describes the right side of his body being in a spasm and feeling cramped. Additionally, the patient reports a sensation of not being able to catch his
breath, relating it to what he describes as a 'forever thing' related to bronchial spasms. The patient indicates that his pulse oximeter readings were low and he experienced difficulty breathing despite good readings. There is a concern for
potential respiratory distress. The patient also noted the presence of red discharge from his right ear, impairing his hearing. He expresses uncertainty about his current medication regimen due to frequent changes in care providers during his
repeated visits to healthcare facilities.
PAST MEDICAL AND SURGICAL HISTORY
The patient has been in and out of nursing homes and hospitals for the past year and a half.
SOCIAL HISTORY
The patient reports having smoked in the past but has not smoked for years. He indicates living in [place], [place] but currently spends time in healthcare facilities.
PHYSICAL EXAM
General: Alert, no acute distress. Morbidly obese
Skin: Warm, dry. Excoriations on the upper extremities and around the ear in various stages of healing.
Head: Normocephalic, atraumatic.
Neck: Supple, trachea midline.
Eye Ears, nose, mouth and throat: Presents with dry blood in the external right ear suggesting superficial bleeding likely due to a scratch or dry skin; Oral mucosa moist.
Cardiovascular: Normal peripheral perfusion, No edema.
Respiratory: Respirations are non-labored.
Gastrointestinal : Abdomen nondistended.
Back: Normal range of motion, Normal alignment.
Musculoskeletal: Normal range of motion, normal strength.
Neurological: Alert and oriented to person, place, time, and situation, No focal neurological deficit observed.
Psychiatric: Cooperative, appropriate mood & affect.
PLAN
1. Administer a breathing treatment to address the bronchial spasms. Lab work
2. Perform a chest X-ray to investigate the underlying cause of respiratory symptoms.
3. Advise outpatient ear wax and debris removal to address the hearing impairment, considering ear canal bleeding risks.
DIFFERENTIAL DIAGNOSIS
The Differential Diagnosis includes, in no particular order and is not limited to:
1. Bronchospasm
2. Asthma
3. Chronic Obstructive Pulmonary Disease (COPD) exacerbation
4. Upper respiratory tract infection
5. Pneumothorax
6. Pulmonary embolism
7. Anxiety or panic disorder
8. Hypertension
9. Musculoskeletal strain
10. Tympanic membrane rupture.
CARE-UPDATE
10/01/25 - 06:20
Patient reports worsening shortness of breath during the night and notes tightness in the chest upon deep inhalation. Recently evaluated for a pulmonary embolus. Denies having fever, chills, or chest pain. He was most recently discharged from the ""hospital on September 27.
Review of Systems
<Benjamin Jean, DO - Last Filed: 10/01/25 06:29>
Review of Systems
Allergies reviewed?: Yes
All Other Systems: ROS reviewed and negative except as documented in HPI and ROS
Constitutional: Reports no symptoms
EENT: Reports no symptoms
Respiratory: Reports cough and trouble breathing; Denies hemoptysis
Cardiac: Reports no symptoms
ABD/GI: Reports no symptoms
: Reports no symptoms
Musculoskeletal: Reports no symptoms
Skin: Reports no symptoms
Neurological: Reports no symptoms
Endocrine: Reports no symptoms
Hematologic/Lymphatic: Reports no symptoms
Psychiatric: Reports no symptoms
Phy Exam
<Socrates Madrigal, DO - Last Filed: 10/01/25 11:02>
Physical Exam
Physical Exam:
.
Course
<Benjamin Jean, DO - Last Filed: 10/01/25 06:29>
Orders/Labs/Results
Orders:
Orders
10/01/25 04:45
Ipratropium/Albuterol Sulfate [Duoneb] 3 ml INH R NOW ONE
CR Chest Portable - 1 View Urgent
Comment:
Reason For Exam: cough
Reason Study Needs to be Portable: Unable to Transport
10/01/25 06:15
Albuterol Sulfate [Ventolin Nebules] 10 mg INH R NOW STA
10/01/25 06:28
Electrocardiogram (*1) Urgent
Reason for Study: Shortness of Breath
EKG- Treatment ONCE
10/01/25 06:37
CRP [C-Reactive Protein] Urgent
Complete Blood Count/With Diff Urgent
Comprehensive Metabolic Panel Urgent
Sed Rate [Erythrocyte Sed Rate] Urgent
Abnormal Lab Results
10/01/25
06:37
WBC 12.1 H 10^3/uL
(4.8-10.8)
Hgb 12.9 L g/dL
(13.0-18.0)
MCV 78.2 L fL
(80.0-94.0)
MCH 24.7 L pg
(27.0-31.0)
MCHC 31.5 L g/dL
(33.0-37.0)
RDW 17.9 H %
(11.5-14.5)
MPV 11.0 H fL
(7.4-10.4)
Abs Immat Gran (auto) 0.1 H 10^3/uL
(0-0.05)
Absolute Neuts (auto) 7.5 H 10^3/uL
(1.4-6.5)
Absolute Monos (auto) 1.1 H 10^3/uL
(0.1-0.6)
Immature Gran % 0.7 H %
(0-0.5)
ESR 41 H mm/hour
(0-20)
Potassium 3.2 L mmol/L
(3.5-5.1)
Chloride 89 L mmol/L
(98-107)
Carbon Dioxide 35 H mmol/L
(22-30)
BUN 30 H mg/dl
(9-20)
Glucose 151 H mg/dl
(70-99)
Alkaline Phosphatase 154 H U/L
(38-126)
C-Reactive Protein 37.10 H mg/L
(0.0-10.00)
10/01/25 06:37
10/01/25 06:37
Vital Signs
Initial and Last Documented VS:
Initial Vital Signs
Pulse Resp BP Pulse Ox
98 18 102/68 94
10/01/25 04:40 10/01/25 04:40 10/01/25 04:40 10/01/25 04:40
Last Documented Vital Signs
Temp Pulse Resp BP Pulse Ox
98.3 F 98 18 102/68 94
10/01/25 04:43 10/01/25 04:40 10/01/25 04:40 10/01/25 04:40 10/01/25 06:28
Vannessalt;Socrates Madrigal, DO - Last Filed: 10/01/25 11:02>
Orders/Labs/Results
Orders:
Orders
10/01/25 04:45
Ipratropium/Albuterol Sulfate [Duoneb] 3 ml INH R NOW ONE
CR Chest Portable - 1 View Urgent
Comment:
Reason For Exam: cough
Reason Study Needs to be Portable: Unable to Transport
10/01/25 06:15
Albuterol Sulfate [Ventolin Nebules] 10 mg INH R NOW STA
10/01/25 06:28
Electrocardiogram (*1) Urgent
Reason for Study: Shortness of Breath
EKG- Treatment ONCE
10/01/25 06:37
CRP [C-Reactive Protein] Urgent
Complete Blood Count/With Diff Urgent
Comprehensive Metabolic Panel Urgent
Sed Rate [Erythrocyte Sed Rate] Urgent
Abnormal Lab Results
10/01/25
06:37
WBC 12.1 H 10^3/uL
(4.8-10.8)
Hgb 12.9 L g/dL
(13.0-18.0)
MCV 78.2 L fL
(80.0-94.0)
MCH 24.7 L pg
(27.0-31.0)
MCHC 31.5 L g/dL
(33.0-37.0)
RDW 17.9 H %
(11.5-14.5)
MPV 11.0 H fL
(7.4-10.4)
Abs Immat Gran (auto) 0.1 H 10^3/uL
(0-0.05)
Absolute Neuts (auto) 7.5 H 10^3/uL
(1.4-6.5)
Absolute Monos (auto) 1.1 H 10^3/uL
(0.1-0.6)
Immature Gran % 0.7 H %
(0-0.5)
ESR 41 H mm/hour
(0-20)
Potassium 3.2 L mmol/L
(3.5-5.1)
Chloride 89 L mmol/L
(98-107)
Carbon Dioxide 35 H mmol/L
(22-30)
BUN 30 H mg/dl
(9-20)
Glucose 151 H mg/dl
(70-99)
Alkaline Phosphatase 154 H U/L
(38-126)
C-Reactive Protein 37.10 H mg/L
(0.0-10.00)
10/01/25 06:37
10/01/25 06:37
Vital Signs
Initial and Last Documented VS:
Initial Vital Signs
Pulse Resp BP Pulse Ox
98 18 102/68 94
10/01/25 04:40 10/01/25 04:40 10/01/25 04:40 10/01/25 04:40
Last Documented Vital Signs
Temp Pulse Resp BP Pulse Ox
98.3 F 98 18 102/68 94
10/01/25 04:43 10/01/25 04:40 10/01/25 04:40 10/01/25 04:40 10/01/25 06:28
<Socrates Madrigal, DO - Last Filed: 10/01/25 11:02>
MDM/Problems Addressed
Differential Diagnosis Includes:
Pneumonia, COPD
MDM/Problems Addressed:
65-year-old male with morbid obesity, cough. Lungs clear in ED. Stable for discharge.
Chronic conditions affecting care: HTN and COPD
<Benjamin Jean, DO - Last Filed: 10/01/25 06:29>
*Radiology
Radiology exam reviewed: other (Patient initially refused checks x-ray)
*Pulse Oximetry
SaO2: 94
Oxygen Mode of Delivery: Room air
Patient hypoxic: no
*Critical Care Note
Total Time (30-74mins, 75-104mins- exclusive of procedures): Not Applicable
<Socrates Madrigal, DO - Last Filed: 10/01/25 11:02>
*EKG
Interpreted by ED Provider?: Yes
EKG Intrepretation Date: 10/01/25
EKG Intrepretation Time: 06:46
Interpretation: abnormal
Comparison EKG: no changes
Heart Rate: 91
Rate: normal
Rhythm: a-fib
[place]: normal axis
Interval: normal interval
QRS Pattern: normal QRS
Ischemia: no ischemia
*B[facility]master Interpretation
Rate: normal
Interpretation: abnormal
Heart Rate: 88
Rhythm: a-fib
Data Reviewed
Further Testing Considered But Not Given:
cxr, ct chest not indicated
<Socrates Madrigal, DO - Last Filed: 10/01/25 11:02>
Patient Management
Social determinants of health affecting care: Living situation and Strong social support
Escalation/DeEscalation of care consider admission/obs:
admit not indicated
<Socrates Madrigal, DO - Last Filed: 10/01/25 11:02>
Update Note
Update Note:
Patient seen and evaluated by myself. Lungs clear, no respiratory distress. Patient declining chest x-ray. Not indicated at this time. Do not suspect pneumonia oxygen stable no hypoxia in ED. Stable for discharge. No indication for admission.
ED Attending Note
<Benjamin Jean, DO - Last Filed: 10/01/25 06:29>
-
Portions of this chart may have been created with voice recognition software.� Occasional wrong word or��sound alike� substitutions may have occurred due to the inherent limitations of voice recognition software.
Discharge Plan
Departure
Patient Disposition: Alf/SNF
Date of Disposition: 10/01/25
Time of Disposition: 10:53
Patient with high blood pressure during this ER visit?: No
Condition: Good
Discharge Problem:
Cough, Body mass index [BMI] 70 or greater, adult
Instructions: Cough, Adult (DC)
Prescriptions:
No Action
acetaminophen 325 mg Tablet
650 mg PO Q6HPRN PRN (Reason: mild pain/temp >100.4)
atorvastatin 20 mg Tablet
20 mg PO DAILY
albuterol sulfate 2.5 mg /3 mL (0.083 %) Solution For Nebulization
2.5 mg INHALATION R [id number] PRN (Reason: SOB)
cetirizine 10 mg Tablet
10 mg PO DAILY
cyanocobalamin (vitamin B-12) 1,000 mcg Tablet
1,000 mcg PO DAILY
aspirin 81 mg Tablet,Chewable
81 mg PO DAILY
montelukast 10 mg Tablet
10 mg PO HS
ergocalciferol (vitamin D2) 1,250 mcg (50,000 unit) Capsule
1,250 mcg PO QMONTH
Rx Instructions:
ON THE OF EACH MONTH
albuterol sulfate 90 mcg/actuation Hfa Aerosol Inhaler
1 puff INHALATION R Q4HPRN PRN (Reason: SOB)
fluticasone propionate 50 mcg/actuation [place],Suspension
1 spray INTRANASAL DAILY
Eliquis 5 mg Tablet
5 mg PO HS
metolazone 2.5 mg Tablet
2.5 mg PO DAILY Qty: 0 0RF
diltiazem HCl 180 mg Capsule,Extended Release 24hr
180 mg PO DAILY Qty: 0 0RF
miconazole nitrate [Miconazorb AF] 2 % Powder
1 applic topical BID Qty: 0 0RF
Rx Instructions:
groin, LLQ, RLQ, neck
spironolactone 25 mg Tablet
25 mg PO DAILY Qty: 0 0RF
potassium chloride [Klor-Con M20] 20 mEq Tablet,Er Particles/Crystals
20 meq PO BID Qty: 0 0RF
magnesium oxide 400 mg (241.3 mg magnesium) Tablet
400 mg PO BID Qty: 0 0RF
pantoprazole 40 mg Tablet,Delayed Release (Dr/Ec)
40 mg PO DAILY Qty: 0 0RF
triamcinolone acetonide 0.1 % Lotion
1 applic topical BID Qty: 0 0RF
Rx Instructions:
BOTH LEGS
furosemide [Lasix] 20 mg tablet
60 mg PO BID Qty: 1 0RF
acetaminophen [Tylenol Extra Strength] 500 mg Tablet
1,000 mg PO Q12H
magnesium hydroxide [Milk of Magnesia] 400 mg/5 mL Suspension
2,400 mg PO DAILYPRN PRN (Reason: if no BM in 3 days)
bisacodyl [Dulcolax (bisacodyl)] 10 mg Suppository
10 mg UT DAILYPRN PRN (Reason: if MOM ineffective)
ipratropium-albuterol 0.5 mg-3 mg(2.5 mg base)/3 mL Solution For Nebulization
3 ml inhalation R TID Qty: 0 0RF
lidocaine 4 % Adhesive Patch,Medicated
1 patch topical DAILY Qty: 0 0RF
Rx Instructions:
apply to R shoulder/lower back
budesonide 0.5 mg/2 mL Suspension For Nebulization
0.5 mg inhalation R BID Qty: 0 0RF
Aquaphor Ointment
1 applic TOPICAL TID
Rx Instructions:
apply to legs, arms and back
Fleet Enema 19-7 gram/118 mL Enema
118 ml UT DAILYPRN PRN (Reason: if suppository ineffective)
pseudoephedrine HCl 30 mg Tablet
30 mg PO Q4HPRN PRN (Reason: acute contact otitis externa)
hydroxyzine HCl 25 mg Tablet
25 mg PO Q8HPRN PRN (Reason: anxiety)
metoprolol succinate 50 mg tablet extended release 24 hr
50 mg PO Q12H
Referrals:
UNKNOWN - PT NOT,INTERVIEWE [Family Provider]
Activity Restrictions/Additional Instructions:
Return for any concerns. F/u with primary care 3-5 days.
Interventions
Interventions:
*General Assessment Last Done: 10/01/25 05:00
*Neglect/Abuse Screening Last Done: 10/01/25 05:00
*ED COVID-19 Vaccine History Last Done: 10/01/25 05:00
*ED Influenza Vaccine History Last Done: 10/01/25 06:06
[facility] Fall Risk Assessment Tool Last Done: 10/01/25 05:00
*Risk Screen - Suicide (C-SSRS) Last Done: 10/01/25 06:06
ED- Pulmonary Assessment Last Done: 10/01/25 05:05
Discharge Date and Time
Print Language: SENEGALESE
[2025-10-01] MEDS: VENTOLIN NEBULES 10 MG INH (06:42)
[2025-10-01 06:55] LABS: Hematocrit 40.9 % (39.0-52.0); Hemoglobin 12.9 g/dL (13.0-18.0); Mean Corp Hgb Conc. 31.5 g/dL (33.0-37.0); Mean Corpuscular Volume 78.2 fL (80.0-94.0); Nucleated Red Blood Cells % 0 % (-); Platelet Count 265 10^3/uL (130-400); Red Cell Dist. Width 17.9 % (11.5-14.5)
[2025-10-01 07:14] LABS: ALT (SGPT) 18 U/L (0-50); AST (SGOT) 21 U/L (17-59); Albumin 3.9 g/dl (3.5-5.0); Alkaline Phosphatase 154 U/L (38-126); Blood Urea Nitrogen 30 mg/dl (9-20); Calcium 9.0 mg/dl (8.4-10.2); Carbon Dioxide 35 mmol/L (22-30); Chloride 89 mmol/L (98-107); Glucose 151 mg/dl (70-99); Potassium 3.2 mmol/L (3.5-5.1); Sodium 135 mmol/L (135-145); Total Protein 6.9 g/dl (6.3-8.2); eGFR > 60.00
[2025-10-01 07:18] LABS: C-Reactive Protein 37.10 mg/L (0.0-10.00)
== END 2025-10-01 13:43 ==
LOC: EMR 04:35
PROVIDERS: EMERGENCY PHYSICIAN Student in an Organized Health Care Education/Training Program
DX: R05.9 Cough, unspecified (principal); J44.9 Chronic obstructive pulmonary disease, unspecified; E66.01 Morbid (severe) obesity due to excess calories; Z68.45 Body mass index [BMI] 70 or greater, adult; I10 Essential (primary) hypertension; Z87.891 Personal history of nicotine dependence
CPT/HCPCS: 99284; 94640; 80053; 85025; 85652; 86140; 93005